=== PATIENT | male | born 2000 | race African-American/Black ===

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

== ENCOUNTER 2018-02-24 00:52 | Emergency (ER) | payer MEDICAID, OTHER ==
[2018-02-24] MEDS ORDERED: KETOROLAC TROMETHAMINE 60 MG/2 ML SDV IM ONE (01:48)
--- NOTE | 2018-02-24 03:14 | ER Document Report ---
ED General - General Chief Complaint: Headache Stated Complaint: HEADACHE Time Seen by Provider: 02/24/18 01:32 Notes: Patient is a 17-year-old male presenting to the emergency department complaining of generalized headache that started yesterday afternoon. Patient states it has gotten worse since then. States he did not take any home medications. Patient states the headache is behind bilateral eyes and through his forehead. Patient states he also thinks as though he has blurred vision bilaterally. Patient denies contact or glasses use. Patient also denies being to a doctor within the last 2 years. Patient denies URI symptoms, nausea, vomiting, fever, diarrhea, abdominal pain, shortness of breath, neck pain. Past medical history: None Medications: None Allergies: None Surgical history: None Patient does admit to cigarette smoking, denies illicit drug use, denies EtOH use. TRAVEL OUTSIDE OF THE [place] IN LAST 30 DAYS: No COUNTRY TRAVELED TO/FROM: [facility] - Related Data Allergies/Adverse Reactions: No Known Allergies Allergy (Verified 06/19/16 15:00) Past Medical History - General Information source: Patient - Social History Smoking Status: Current Every Day Smoker Chew tobacco use (# tins/day): No Frequency of alcohol use: None Drug Abuse: Bath salts Lives with: Family Family History: Hypertension, Other - Lupus Patient has suicidal ideation: No Patient has homicidal ideation: No Pulmonary Medical History: Reports: Hx Asthma Renal/ Medical History: Denies: Hx Peritoneal Dialysis Past Surgical History: Reports: Hx Abdominal Surgery - Immunizations Immunizations up to date: Yes Hx Diphtheria, Pertussis, Tetanus Vaccination: Yes Review of Systems - Review of Systems Constitutional: See HPI EENT: See HPI Cardiovascular: See HPI Respiratory: See HPI Gastrointestinal: See HPI Genitourinary: No symptoms reported Male Genitourinary: No symptoms reported Musculoskeletal: No symptoms reported Skin: No symptoms reported Hematologic/Lymphatic: No symptoms reported Neurological/Psychological: No symptoms reported Physical Exam - Vital signs Vitals: Temp Pulse Resp BP Pulse Ox 98.4 F 63 17 133/66 H 100 02/24/18 00:56 02/24/18 00:56 02/24/18 00:56 02/24/18 00:56 02/24/18 00:56 - Notes Notes: GENERAL: Alert, interacts well. No acute distress. HEAD: Normocephalic, atraumatic. EYES: Pupils equal, round, and reactive to light. Extraocular movements intact. No photophobia noted ENT: Oral mucosa moist, tongue midline. NECK: Full range of motion. Supple. Trachea midline. LUNGS: Clear to auscultation bilaterally, no wheezes, rales, or rhonchi. No respiratory distress. HEART: Regular rate and rhythm. No murmur ABDOMEN: Soft, non-tender. Non-distended. Bowel sounds present in all 4 quadrants. EXTREMITIES: Moves all 4 extremities spontaneously. No edema, normal radial and dorsalis pedis pulses bilaterally. No cyanosis. 5 out of 5 strength all 4 extremities. BACK: no cervical, thoracic, lumbar midline tenderness. No saddle anesthesia, normal distal neurovascular exam. NEUROLOGICAL: Alert and oriented x3. Normal speech. cranial nerves II through XII grossly intact. PSYCH: Normal affect, normal mood. SKIN: Warm, dry, normal turgor. No rashes or lesions noted. - HEENT Visual acuity- Right eye: 20/50 Visual acuity- Left eye: 20/50 Visual acuity- Both eyes: 20/30 Corrective lenses worn: No Course - Re-evaluation Re-evalutation: 02/24/18 03:12 Patient states Toradol in the emergency room has improved his headache overall. Patient is sitting on the edge of the bed requesting to be discharged and would like a note for work. Discussed home treatments with Tylenol and Motrin for pain and discomfort. Discussed need to follow-up with primary care provider and potentially an investigator narcotics to be tested for potential glasses. Return precautions discussed. - Vital Signs Vital signs: Temp Pulse Resp BP Pulse Ox 98.4 F 63 17 133/66 H 100 02/24/18 00:56 02/24/18 00:56 02/24/18 00:56 02/24/18 00:56 02/24/18 00:56 Discharge - Discharge Clinical Impression: Headache Qualifiers: Headache type: unspecified Headache chronicity pattern: acute headache Intractability: not intractable Qualified Code(s): R51 - Headache Condition: Stable Disposition: HOME, SELF-CARE Instructions: Toradol Injection ([facility]), Headache ([facility]) Additional Instructions: As we discussed you have been seen and treated in the emergency department for headache. You should take [id number] Tylenol or Motrin for your headaches. You should also follow-up with your primary care provider in the next 24-48 hours. Please return to the emergency room for any other concerning symptoms. Referrals: EDILMA HAYS MD [Primary Care Provider] - Follow up as needed
[2018-02-24 03:30] VITALS: BP 138/62
== END 2018-02-24 03:55 | disposition home or self-care (01) ==
LOC: ER 00:52
DX: R51 Headache (principal); F17.210 Nicotine dependence, cigarettes, uncomplicated; J45.909 Unspecified asthma, uncomplicated
CPT/HCPCS: 99284; 96372; J1885

== ENCOUNTER 2018-07-11 18:59 | Emergency (ER) | payer SELFPAY ==
[2018-07-11 19:35] VITALS: BP 125/52
== END 2018-07-11 22:50 | disposition left against medical advice (07) ==
LOC: ER 18:59
DX: Z53.21 Procedure and treatment not carried out due to patient leaving prior to being seen by health care provider (principal)

== ENCOUNTER 2018-07-13 05:52 | Emergency (ER) | payer SELFPAY ==
[2018-07-13] MEDS ORDERED: DIPHENHYDRAMINE HCL 50 MG CAPSULE PO ONE (06:37)
[2018-07-13] MEDS ORDERED: NORMAL SALINE 1000 ML 1,000 ML IV ONE ×3 (06:38→10:13)
[2018-07-13] MEDS ORDERED: DIPHENHYDRAMINE HCL 50 MG/ML VIAL IV ONE (06:41)
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
[2018-07-13 07:16] LABS: ALANINE AMINOTRANSFERASE 12 U/L (21-72); ALBUMIN 4.7 g/dL (3.5-5.0); ALKALINE PHOSPHATASE 141 U/L (38-126); ASPARTATE AMINO TRANSFERASE 28 U/L (17-59); BILIRUBIN,DIRECT 0.6 mg/dL (0.0-0.4); BILIRUBIN,TOTAL 1.1 mg/dL (0.2-1.3); BLOOD UREA NITROGEN 31 mg/dL (7-20); CALCIUM 9.6 mg/dL (8.4-10.2); CHLORIDE 96 mmol/L (98-107); POTASSIUM 5.3 mmol/L (3.6-5.0); SODIUM 126.6 mmol/L (137-145); TOTAL PROTEIN 8.2 g/dL (6.3-8.2)
--- NOTE | 2018-07-13 07:23 | RADIOLOGY REPORT (SQ) ---
EXAM DESCRIPTION: X-ray single view chest. CLINICAL HISTORY: 18 years Male, sob COMPARISON: 05/27/2015 TECHNIQUE: Single portable x-ray view of the chest performed on 07/13/2018 at 7:05 AM FINDINGS: The lungs are well expanded and are grossly clear. There is no evidence of a pneumothorax. The cardiac silhouette is normal in size and configuration. The mediastinal contours are normal. No acute osseous abnormality is identified. There is subcutaneous emphysema along the neck bilaterally and superolateral right chest wall and there is pneumomediastinum. Lines and tubes: There are a few overlying front desk monitor leads. IMPRESSION: 1. Subcutaneous emphysema and pneumomediastinum predominantly centrally and to the right of midline. Etiology not determined by this study. 2. No evidence of acute intrathoracic disease.
[2018-07-13 07:25] LABS: CARBON DIOXIDE < 5 mmol/L (22-30); GLUCOSE 542 mg/dL (75-110)
[2018-07-13 07:31] LABS: VENOUS BLOOD BASE EXCESS -28.2 mmol/L; VENOUS BLOOD PCO2 21.5 mmHg (35-63)
[2018-07-13 07:34] LABS: VENOUS BLOOD PH 6.89 (7.30-7.42)
[2018-07-13] MEDS ORDERED: INSULIN REG, HUMAN 100 UNIT/ML 3 ML VIAL (PYX) IV ONE (07:34)
[2018-07-13 07:39] LABS: HEMATOCRIT 45.5 % (37.9-51.0); HEMOGLOBIN 14.1 g/dL (13.5-17.0); MEAN CORPUSCULAR HEMOGLOBIN 22.7 pg (27.0-33.4); MEAN CORPUSCULAR HGB CONC 31.1 g/dL (32.0-36.0); MEAN CORPUSCULAR VOLUME 73 fl (80-97); PLATELET COUNT 373 10^3/uL (150-450); RED BLOOD COUNT 6.23 10^6/uL (4.35-5.55); RED CELL DISTRIBUTION WIDTH 13.9 % (11.5-14.0); WHITE BLOOD COUNT 24.8 10^3/uL (4.0-10.5)
[2018-07-13] MEDS ORDERED: ONDANSETRON HCL INJ/PF 4 MG/2 ML SDV IV ONE (07:55)
[2018-07-13] MEDS ORDERED: MORPHINE SULFATE 10 MG/ML INJ IV ONE ×2 (07:55→13:56)
[2018-07-13 07:57] LABS: ABSOLUTE LYMPHOCYTES# (MANUAL) 1.2 10^3/uL (0.5-4.7); ABSOLUTE MONOCYTES # (MANUAL) 1.2 10^3/uL (0.1-1.4); ABSOLUTE NEUTROPHILS# (MANUAL) 22.1 10^3/uL (1.7-8.2); BASOPHILS % (MANUAL) 1 % (0-2); EOSINOPHILS % (MANUAL) 0 % (0-6); LYMPHOCYTES % (MANUAL) 5 % (13-45); MONOCYTES % (MANUAL) 5 % (3-13); SEGMENTED NEUTROPHILS % (MAN) 89 % (42-78); TOTAL CELLS COUNTED 100
[2018-07-13 07:58] LABS: PLATELET COMMENT ADEQUATE
--- NOTE | 2018-07-13 09:22 | RADIOLOGY REPORT (SQ) ---
EXAM DESCRIPTION: CT CHEST WITHOUT COMPLETED DATE/TIME: 07/13/2018 9:02 am REASON FOR STUDY: Pneumomediastinum COMPARISON: None. TECHNIQUE: CT scan performed of the chest without intravenous contrast. Images reviewed with lung, soft tissue and bone windows. Reconstructed coronal and sagittal MPR images reviewed. All images st ored on PACS. All CT scanners at this facility use dose modulation, iterative reconstruction, and/or weight based d osing when appropriate to reduce radiation dose to as low as reasonably achievable (ALARA). [facility]: Dose Right [facility]: CareDose [facility]: Dose Right [facility]: Teradose 4D [facility]: Smart Technologies RADIATION DOSE: CT Rad equipment meets quality standard of care and radiation dose reduction techniq ues were employed. CTDIvol: 6.5 mGy. DLP: 256 mGy-cm. mGy. LIMITATIONS: No technical limitations. FINDINGS: LUNGS AND PLEURA: No masses, infiltrates, or pneumothorax. No pleural effusions or pleura l calcifications. HILAR AND MEDIASTINAL STRUCTURES: Extensive mediastinal air extending into the supraclavicular region s bilaterally greatest on the right. HEART AND VASCULAR STRUCTURES: No aneurysm. No pericardial effusion. UPPER ABDOMEN: The liver, spleen, adrenals demonstrate no abnormality. The stomach is distended with fluid. A moderate amount of fluid noted within the esophagus and stomach. THYROID AND OTHER SOFT TISSUES: No masses. No adenopathy. BONES: No significant finding. HARDWARE: None in the chest. OTHER: Subcutaneous emphysema in right axillary region and lump paraspinal muscles posterior to right cervical region. IMPRESSION: 1. Pneumomediastinum. Subcutaneous soft tissues emphysema right axillary region and shi praclavicular regions, right greater than left. 2. Moderate amount of fluid noted within the stomac h and fluid noted in the esophagus. TECHNICAL DOCUMENTATION: JOB ID: [id number] Quality ID # [id number]: Final reports with documentation of one or more dose reduction techniques (e.g., Au tomated exposure control, adjustment of the mA and/or kV according to patient size, use of iterative reconstruction technique) 2010 [employer]- All Rights Reserved Reading location - IP/workstation name: [email or web address]
[2018-07-13 09:38] LABS: APPEARANCE,URINE SLIGHTLY-CLOUDY; BILIRUBIN,URINE NEGATIVE (NEGATIVE); COLOR,URINE YELLOW; GLUCOSE, URINE >=500 mg/dL (NEGATIVE); KETONES,URINE 80 mg/dL (NEGATIVE); LEUKOCYTE ESTERASE,URINE NEGATIVE (NEGATIVE); NITRITE,URINE NEGATIVE (NEGATIVE); PROTEIN,URINE 30 mg/dL (NEGATIVE); URINE SPECIFIC GRAVITY 1.021; UROBILINOGEN,URINE NEGATIVE mg/dL (<2.0)
[2018-07-13 09:49] LABS: URINE AMPHETAMINES SCREEN NEGATIVE; URINE BARBITURATES SCREEN NEGATIVE; URINE BENZODIAZEPINES SCREEN NEGATIVE; URINE COCAINE SCREEN NEGATIVE; URINE MARIJUANA (THC) SCREEN NEGATIVE; URINE METHADONE SCREEN NEGATIVE; URINE PHENCYCLIDINE SCREEN NEGATIVE
--- NOTE | 2018-07-13 10:09 | ER Document Report ---
ED General - General Chief Complaint: Shortness Of Breath Stated Complaint: CHEST PAIN AND DIFFICULTY BREATHING Time Seen by Provider: 07/13/18 06:20 Primary Care Provider: EDILMA HAYS MD [Primary Care Provider] - Follow up as needed Mode of Arrival: Ambulatory TRAVEL OUTSIDE OF THE [place] IN LAST 30 DAYS: No COUNTRY TRAVELED TO/FROM: [facility] - HPI Notes: Patient presents to the emergency department for evaluation. He is a 18-year- old male who presented with difficulty breathing. Evidently he had presented to the ED a few days ago, left without being seen. He states he had shortness of breath for about a week. His girlfriend relates that he thought that his tongue was swollen. He has been drinking excessively over the last week. He has had multiple episodes of emesis. He has been complaining intermittently of abd ominal pain throughout the week. Last night, after vomiting, he began eating of chest pain as well. He really cannot describe his pain for me other than to say it hurts significantly. - Related Data Allergies/Adverse Reactions: No Known Allergies Allergy (Verified 07/11/18 19:02) Past Medical History - General Information source: Patient, Friend - Social History Smoking Status: Never Smoker Cigarette use (# per day): No Chew tobacco use (# tins/day): No Frequency of alcohol use: Rare Drug Abuse: None Lives with: Family Family History: DM, Hypertension, Other - Lupus Patient has suicidal ideation: No Patient has homicidal ideation: No Pulmonary Medical History: Reports: Hx Asthma Renal/ Medical History: Denies: Hx Peritoneal Dialysis Past Surgical History: Reports: Hx Abdominal Surgery - Immunizations Immunizations up to date: Yes Hx Diphtheria, Pertussis, Tetanus Vaccination: Yes Review of Systems - Review of Systems Constitutional: Malaise, Weakness EENT: No symptoms reported Cardiovascular: See HPI Respiratory: See HPI Gastrointestinal: See HPI Genitourinary: See HPI Musculoskeletal: No symptoms reported Skin: No symptoms reported Neurological/Psychological: No symptoms reported Physical Exam - Vital signs Vitals: Temp Pulse Resp BP Pulse Ox 97 F L 99 32 H 140/64 H 100 07/13/18 06:00 07/13/18 06:00 07/13/18 06:00 07/13/18 06:00 07/13/18 06:00 - Notes Notes: Vital signs reviewed, please refer to chart. Patient is normocephalic, atraumatic. Pupils equal round, reactive to light. Neck is supple without meningismus. Heart is tachycardic with normal S1-S2. Lungs are clear to aus cultation bilaterally, but respiratory rate is increased with cook boat rafi respirations. Tender to palpation throughout the chest wall, right greater than left, with some palpable subcutaneous emphysema into the right axilla. Abdomen is soft, globally tender without rebound or guarding, normoactive bowel sounds throughout. Extremities without cyanosis, clubbing, edema. Peripheral pulses are equal. Skin is warm and dry. Patient is drowsy but wakes easily to verbal stimuli. Cranial nerves II through XII are grossly intact without focal neurological deficits. Strength is plus 5 out of 5 bilateral upper and lower extremities. Sensation is intact. Intact finger nose finger, rapid alternating movements, [id number]. Course - Re-evaluation Re-evalutation: 07/13/18 10:51 And he was initially seen by the physician chef assistant. Because of medical complexity, the presence of pneumomediastinum, I was brought in to manage this case. In short this patient presented with nausea, vomiting, polyuria, polydipsia. He was found to have new onset diabetes with DKA, as well as pneumomediastinum. CT scan of the chest was ordered which found no obvious physeal source, no clear source for the pneumomediastinum. Patient was treated with IV fluids, insulin. He was given pain medication. Insulin drip was maintained, repeat basic metabolic panel ordered and pending. I spoke with Dr. Mills at 1015. He agrees that this patient, while medically could be handled here, is more concerning secondary to the pneumomediastinum. We do not have CT surgery. We do not even have a school superintendent at this time. I spoke with Dr.Li Webb, hospitalist at [facility], who accepted the patient in transfer to the PCU. Awaiting bed assignment. - Vital Signs Vital signs: Temp Pulse Resp BP Pulse Ox 97 F L 99 39 H 155/89 H 100 07/13/18 06:00 07/13/18 06:00 07/13/18 08:16 07/13/18 08:16 07/13/18 08:16 - Laboratory Result Diagrams: 07/13/18 07:15 07/13/18 06:30 Laboratory results interpreted by me: 07/13/18 07/13/18 07/13/18 06:30 07:02 07:13 WBC RBC MCV MCH MCHC Seg Neuts % (Manual) Lymphocytes % (Manual) Abs Neuts (Manual) VBG pH VBG pCO2 VBG HCO3 Sodium 126.6 L Potassium 5.3 H Chloride 96 L Carbon Dioxide < 5 L* BUN 31 H Creatinine 1.58 H Est GFR (Non-Af Amer) 56 L Glucose 542 H* POC Glucose 477 H* 472 H* Direct Bilirubin 0.6 H ALT 12 L Alkaline Phosphatase 141 H Urine Protein Urine Glucose (UA) Urine Ketones Urine Blood 07/13/18 07/13/18 07/13/18 07:15 07:15 09:10 WBC 24.8 H RBC 6.23 H MCV 73 L MCH 22.7 L MCHC 31.1 L Seg Neuts % (Manual) 89 H Lymphocytes % (Manual) 5 L Abs Neuts (Manual) 22.1 H VBG pH 6.89 L* VBG pCO2 21.5 L VBG HCO3 4.0 L Sodium Potassium Chloride Carbon Dioxide BUN Creatinine Est GFR (Non-Af Amer) Glucose POC Glucose Direct Bilirubin ALT Alkaline Phosphatase Urine Protein 30 H Urine Glucose (UA) >=500 H Urine Ketones 80 H Urine Blood MODERATE H 07/13/18 07/13/18 09:13 10:08 WBC RBC MCV MCH MCHC Seg Neuts % (Manual) Lymphocytes % (Manual) Abs Neuts (Manual) VBG pH VBG pCO2 VBG HCO3 Sodium Potassium Chloride Carbon Dioxide BUN Creatinine Est GFR (Non-Af Amer) Glucose POC Glucose 372 H 366 H Direct Bilirubin ALT Alkaline Phosphatase Urine Protein Urine Glucose (UA) Urine Ketones Urine Blood - Diagnostic Test Radiology reviewed: Reports reviewed - Pneumomediastinum Critical Care Note - Critical Care Note Total time excluding time spent on procedures (mins): 40 Discharge - Discharge Clinical Impression: Pneumomediastinum Diabetic ketoacidosis Qualifiers: Diabetes mellitus type: type 1 Condition: Stable Disposition: [facility] Admitting Provider: Jon Referrals: EDILMA HAYS MD [Primary Care Provider] - Follow up as needed
[2018-07-13 13:07] LABS: BLOOD UREA NITROGEN 27 mg/dL (7-20); CALCIUM 8.9 mg/dL (8.4-10.2); GLUCOSE 259 mg/dL (75-110)
[2018-07-13 13:13] LABS: CHLORIDE 103 mmol/L (98-107); SODIUM 130.9 mmol/L (137-145)
[2018-07-13 13:14] LABS: ANION GAP 20 (5-19)
[2018-07-13 13:16] LABS: CARBON DIOXIDE 8 mmol/L (22-30)
[2018-07-13] MEDS ORDERED: POTASSI CL 40 MEQ/D5-1/2NS 1L 40 MEQ/1,000 ML RTUINJ IV ONE (13:51)
[2018-07-13] MEDS ORDERED: POTASSI CL 20 MEQ/D5-1/2NS 1L 1,000 ML IV ONE (14:15)
[2018-07-13 17:09] VITALS: BP 134/70
== END 2018-07-13 16:30 | disposition short-term general hospital (02) ==
LOC: ER 05:52
DX: J98.2 Interstitial emphysema (principal); E10.10 Type 1 diabetes mellitus with ketoacidosis without coma; R11.2 Nausea with vomiting, unspecified; R35.8 Other polyuria; J45.909 Unspecified asthma, uncomplicated; R06.02 Shortness of breath; R10.9 Unspecified abdominal pain; R07.9 Chest pain, unspecified; R53.81 Other malaise; R53.1 Weakness; R00.0 Tachycardia, unspecified
CPT/HCPCS: 96376; 99291; 96361; 96375; 96365; 96366; 36415; 82962; 83735; 85025; 80048; 80053; 81001; 80307; 82803; 71045; 71250; J1200; J2270; J3480; J1815; J2405; J7030

== ENCOUNTER 2018-08-17 15:11 | Emergency (ER) | payer SELFPAY ==
[2018-08-17] MEDS ORDERED: NORMAL SALINE 1000 ML 1,000 ML IV ONE (16:09)
[2018-08-17 16:34] LABS: VENOUS BLOOD BASE EXCESS 0.2 mmol/L; VENOUS BLOOD HCO3 27.1 mmol/L (20-32); VENOUS BLOOD PCO2 53.7 mmHg (35-63); VENOUS BLOOD PH 7.32 (7.30-7.42)
[2018-08-17 16:35] LABS: ABSOLUTE BASOPHILS # (AUTO) 0.1 10^3/uL (0.0-0.2); ABSOLUTE EOSINOPHILS # (AUTO) 0.2 10^3/uL (0.0-0.6); ABSOLUTE LYMPHOCYTES (AUTO) 0.8 10^3/uL (0.5-4.7); ABSOLUTE MONOCYTES (AUTO) 0.7 10^3/uL (0.1-1.4); ABSOLUTE NEUT (AUTO) 5.8 10^3/uL (1.7-8.2); BASOPHILS % (AUTO) 0.9 % (0-2); EOSINOPHILS % (AUTO) 2.2 % (0-6); HEMATOCRIT 38.8 % (37.9-51.0); HEMOGLOBIN 12.1 g/dL (13.5-17.0); LYMPHOCYTES % (AUTO) 10.2 % (13-45); MEAN CORPUSCULAR HEMOGLOBIN 23.4 pg (27.0-33.4); MEAN CORPUSCULAR HGB CONC 31.1 g/dL (32.0-36.0); MEAN CORPUSCULAR VOLUME 75 fl (80-97); MONOCYTES % (AUTO) 9.8 % (3-13); PLATELET COUNT 230 10^3/uL (150-450); RED BLOOD COUNT 5.17 10^6/uL (4.35-5.55); RED CELL DISTRIBUTION WIDTH 15.7 % (11.5-14.0); SEGMENTED NEUTROPHILS % (AUTO) 76.9 % (42-78); TOTAL CELLS COUNTED % (AUTO) 100 %; WHITE BLOOD COUNT 7.6 10^3/uL (4.0-10.5)
[2018-08-17 16:37] LABS: APPEARANCE,URINE CLEAR; BILIRUBIN,URINE NEGATIVE (NEGATIVE); COLOR,URINE COLORLESS; GLUCOSE, URINE >=500 mg/dL (NEGATIVE); KETONES,URINE NEGATIVE (NEGATIVE); LEUKOCYTE ESTERASE,URINE NEGATIVE (NEGATIVE); NITRITE,URINE NEGATIVE (NEGATIVE); PROTEIN,URINE NEGATIVE (NEGATIVE); URINE SPECIFIC GRAVITY 1.029; UROBILINOGEN,URINE NEGATIVE mg/dL (<2.0)
[2018-08-17 16:58] LABS: ALANINE AMINOTRANSFERASE 34 U/L (21-72); ALBUMIN 4.3 g/dL (3.5-5.0); ALKALINE PHOSPHATASE 107 U/L (38-126); ANION GAP 14 (5-19); ASPARTATE AMINO TRANSFERASE 35 U/L (17-59); BILIRUBIN,DIRECT 0.3 mg/dL (0.0-0.4); BILIRUBIN,TOTAL 0.8 mg/dL (0.2-1.3); BLOOD UREA NITROGEN 5 mg/dL (7-20); CALCIUM 9.4 mg/dL (8.4-10.2); CARBON DIOXIDE 26 mmol/L (22-30); CHLORIDE 90 mmol/L (98-107); POTASSIUM 4.2 mmol/L (3.6-5.0); SODIUM 130.3 mmol/L (137-145); TOTAL PROTEIN 6.9 g/dL (6.3-8.2)
[2018-08-17 17:07] LABS: GLUCOSE 645 mg/dL (75-110)
[2018-08-17] MEDS ORDERED: INSULIN REG, HUMAN 100 UNIT/ML 3 ML VIAL (PYX) IV ONE (17:28)
--- NOTE | 2018-08-17 20:23 | ER Document Report ---
ED General - General Chief Complaint: High Blood Sugar Stated Complaint: BLOOD SUGAR ISSUES Time Seen by Provider: 08/17/18 16:20 TRAVEL OUTSIDE OF THE [place] IN LAST 30 DAYS: No COUNTRY TRAVELED TO/FROM: [facility] Notes: Patient is a 18-year-old male with a known history of type 1 diabetes, recently diagnosed, who presents to the emergency department for evaluation of elevated blood sugars. He states that he has been taking his insulin as prescribed. He states he has been trying to follow dietary recommendations, although he admits he is unclear as to some of them. He was primarily concerned because his blood sugars been reading high over the last week, that he could possibly be in DKA. He denies any pain. No nausea or vomiting. He does have polyuria and polydi psia. He has not yet established care with a primary care physician. He still has insulin as prescribed by the physicians [facility]. - Related Data Allergies/Adverse Reactions: No Known Allergies Allergy (Verified 08/17/18 16:33) Past Medical History - General Information source: Patient - Social History Smoking Status: Current Every Day Smoker Chew tobacco use (# tins/day): No Frequency of alcohol use: None Drug Abuse: None Family History: Reviewed & Not Pertinent, Hypertension, Other - Lupus Patient has suicidal ideation: No Patient has homicidal ideation: No Pulmonary Medical History: Reports: Hx Asthma Endocrine Medical History: Reports: Hx Diabetes Mellitus Type 1 Renal/ Medical History: Denies: Hx Peritoneal Dialysis Past Surgical History: Reports: Hx Abdominal Surgery - Immunizations Immunizations up to date: Yes Hx Diphtheria, Pertussis, Tetanus Vaccination: Yes Review of Systems - Review of Systems Constitutional: No symptoms reported EENT: No symptoms reported Cardiovascular: No symptoms reported Respiratory: No symptoms reported Gastrointestinal: No symptoms reported Genitourinary: No symptoms reported Musculoskeletal: No symptoms reported Skin: No symptoms reported Neurological/Psychological: No symptoms reported Physical Exam - Vital signs Vitals: Temp Pulse Resp BP Pulse Ox 98.8 F 97 16 128/53 H 96 08/17/18 15:36 08/17/18 15:36 08/17/18 15:36 08/17/18 15:36 08/17/18 15:36 - Notes Notes: Vital signs reviewed, please refer to chart. Head is normocephalic, atraumatic. Pupils equal round, reactive to light. Neck is supple without meningismus. Heart is regular rate and rhythm. Lungs are clear to auscultation bilaterally. Abdomen is soft, nontender, normoactive bowel sounds throughout. Extremities without cyanosis, clubbing. Posterior calves are nontender. Peripheral pulses are equal. Skin is warm and dry. Patient is awake, alert, oriented x3. Cranial nerves II - XII are grossly intact without focal neurological deficits. Strength is plus 5 out of 5 bilateral lower extremities. Sensation is intact. Reflexes symmetrical. Intact [id number], rapid altering movements, [id number]. Course - Re-evaluation Re-evalutation: 08/17/18 20:20 Patient presents emergency department for evaluation. Laboratory investigations were ordered, IV was established, the patient was given IV fluids. He was m onitored here in the emergency department. Patient's glucose was initially 645. He is not in DKA. His bicarb is normal. He is not acidotic. He was given further IV fluids and 15 units of IV insulin. His blood sugar came down temporarily, but then alirio again above 500. The patient states he is not eating or drinking anything other than water in the room at this time. I do not have a clear etiology for his blood sugar continuing to rise. I explained to the patient that I believe it would be reasonable for him to be admitted to the hospital. He states that he does not want to stay. We discussed the long-term sequelae of uncontrolled blood sugar. We discussed the possibility of jamar nuing on into DKA given his elevated blood sugar. He voiced understanding to this. He states he was still like to leave AGAINST MEDICAL ADVICE. The importance of establishing care with a primary care physician in light of his new onset type 1 diabetes was stressed. We will send him on to the [facility]. He is told that if any time he changes his mind regarding admission, he should come into the emergency department to be reevaluated. - Vital Signs Vital signs: Temp Pulse Resp BP Pulse Ox 98.8 F 97 14 128/53 H 97 08/17/18 15:36 08/17/18 15:36 08/17/18 16:26 08/17/18 15:36 08/17/18 16:26 - Laboratory Result Diagrams: 08/17/18 16:25 08/17/18 16:25 Laboratory results interpreted by me: 08/17/18 08/17/18 08/17/18 16:25 16:25 16:25 Hgb 12.1 L MCV 75 L MCH 23.4 L MCHC 31.1 L RDW 15.7 H Lymphocytes % 10.2 L Sodium 130.3 L Chloride 90 L BUN 5 L Glucose 645 H* POC Glucose Urine Glucose (UA) >=500 H 08/17/18 18:44 Hgb MCV MCH MCHC RDW Lymphocytes % Sodium Chloride BUN Glucose POC Glucose 487 H* Urine Glucose (UA) Discharge - Discharge Clinical Impression: Hyperglycemia due to type 1 diabetes mellitus Condition: Stable Disposition: AGAINST MEDICAL ADVICE Instructions: Hyperglycemia ([facility]) Additional Instructions: You have elected to leave AGAINST MEDICAL ADVICE. Stay well-hydrated. Continue your insulin dosing as prescribed from Gerald Weinstein. Follow-up with primary care. If you change your mind regarding staying in the hospital, or you develop new or concerning symptoms of any sort, return immediately to the emergency department for reevaluation. Referrals: [facility] [NO LOCAL MD] - Follow up as needed
[2018-08-17 20:34] VITALS: BP 134/52
== END 2018-08-17 20:41 | disposition left against medical advice (07) ==
LOC: ER 15:11
DX: E10.65 Type 1 diabetes mellitus with hyperglycemia (principal); R63.1 Polydipsia; R35.8 Other polyuria; F17.200 Nicotine dependence, unspecified, uncomplicated; Z79.4 Long term (current) use of insulin
CPT/HCPCS: 99283; 96360; 36415; 82962; 85025; 80053; 81001; 82803; J1815; J7030

== ENCOUNTER 2018-09-17 23:28 | Inpatient (IN) | payer SELFPAY ==
[2018-09-17] MEDS ORDERED: CEFTRIAXONE INJ 1000 MG VIAL IV ONE (23:59)
[2018-09-17] MEDS ORDERED: VANCOMYCIN HCL INJ 1000 MG VIAL IV ONE (23:59)
--- NOTE | 2018-09-18 00:02 | ER Document Report ---
ED General - General Chief Complaint: High Blood Sugar Stated Complaint: BLOOD SUGAR ISSUE Time Seen by Provider: 09/17/18 23:53 Notes: Patient is a 18-year-old male presents with complaint of what appears to be DKA. He has been taking his insulin. He says he has been sick the last few days. He has an area of infection in his left cubital region. Initially patient says he does not do IV drugs however he had multiple track ojhnson and when asked him again he does admit to using IV heroin. He does not think it broken off in his arm. He said he did have an abscess in his left elbow but it since opened up and started draining on its own. He started having intractable vomiting. No diarrhea. No abdominal pain. No other complaints at this time. He does not have a primary care physician. He has been in DKA in the past. TRAVEL OUTSIDE OF THE [place] IN LAST 30 DAYS: No COUNTRY TRAVELED TO/FROM: [facility] - Related Data Allergies/Adverse Reactions: No Known Allergies Allergy (Verified 09/17/18 23:29) Past Medical History - Social History Smoking Status: Unknown if Ever Smoked Frequency of alcohol use: Occasional Drug Abuse: Heroin Family History: Reviewed & Not Pertinent, Hypertension, Other - Lupus Pulmonary Medical History: Reports: Hx Asthma Endocrine Medical History: Reports: Hx Diabetes Mellitus Type 1 Renal/ Medical History: Denies: Hx Peritoneal Dialysis Past Surgical History: Reports: Hx Abdominal Surgery - Immunizations Immunizations up to date: Yes Hx Diphtheria, Pertussis, Tetanus Vaccination: Yes Review of Systems - Review of Systems Notes: My Normal Review Basic REVIEW OF SYSTEMS: CONSTITUTIONAL : Subjective fever at home. EENT: Denies eye, ear, throat, or mouth pain or symptoms. Denies nasal or sinus congestion. CARDIOVASCULAR: Denies chest pain. RESPIRATORY: Denies cough, cold, or chest congestion. Denies shortness of breath, difficulty breathing, or wheezing. GASTROINTESTINAL: Denies abdominal pain. Denies nausea, vomiting, or diarrhea. MUSCULOSKELETAL: Infection in the left antecubital region SKIN: Denies rash or skin lesions. NEUROLOGICAL: Denies altered mental status or loss of consciousness. Denies headache. Denies weakness or paralysis or loss of use of either side. Denies problems with gait or speech. Denies sensory or motor loss. ALL OTHER SYSTEMS REVIEWED AND NEGATIVE. Physical Exam - Vital signs Vitals: Temp Pulse Resp BP Pulse Ox 97.6 F 101 H 27 H 164/49 H 100 09/17/18 23:40 09/17/18 23:40 09/17/18 23:40 09/17/18 23:40 09/17/18 23:40 - Notes Notes: General Appearance: Thin and cachectic, awake and alert, [place] respirations, sick appearing Vitals: reviewed, See vital signs table. Head: no swelling or tenderness to the head Eyes: PERRL, EOMI, Conjuctiva clear Mouth: Very dry Throat: No tonsillar inflammation, No airway obstruction, No lymphadenopathy Neck: Supple, no neck tenderness, No thyromegaly Lungs: No wheezing, No rales, No rhonci, No accessory muscle use, good air exchange bilaterally. Heart: Tachycardiac rate, Regular rythm, No murmur, no rub Abdomen: Normal BS, soft, No rigidity, No abdominal tenderness, No guarding, no rebound, no abdominal masses Extremities: strength 5/5 in all extremities, arm, dry, appropriate color, good pulses in all extremities, small hole from her abscess has opened and drained on its own in the left lateral antecubital region. I was able to squeeze this area to express the remainder of the pus. We did culture the pus. Patient has multiple track johnson over both forearms and arms. Neuro: speech clear, oriented x 3, normal affect, responds appropriately to questions. Course - Re-evaluation Re-evalutation: 09/18/18 00:00 On exam patient clinically looks consistent with DKA. Does patient coordinator front desk small respirations and is tachycardic and is very dry appearing. We just placed an IV and will be started IV fluids immediately. On exam he is got multiple track johnson on both upper extremities consistent with IV drug abuse. Initially patient denied IV drug abuse however I question again informed him the importance of us knowing this and now he admits to using heroin. He does have an area of recent infection in his left antecubital region from what looks like she had an abscess which has since drained but there is still some residual in fection there. I have ordered IV fluids. Avoid labs. Have ordered an x-ray of the left elbow to make sure there is no evidence of retained needle or foreign body. 09/18/18 00:02 09/18/18 07:17 Patient was treated for DKA. I did place a central line because patient's only had 2 peripheral IVs and I felt that with his antibiotics, need for fluids, and insulin drip he required more vascular access. I did speak with the hospitalist, Dr. Lopes, agreed to come evaluate the patient for admission. Blood cultures were obtained. Culture of drainage from abscess was obtained. Patient was starting to improve prior to being admitted. Heart rate had improved. Nausea improved. [place] respirations were improving. - Vital Signs Vital signs: Temp Pulse Resp BP Pulse Ox 97.5 F 82 17 120/63 100 09/18/18 06:00 09/18/18 03:42 09/18/18 06:00 09/18/18 05:41 09/18/18 06:00 - Laboratory Result Diagrams: 09/18/18 04:57 09/18/18 04:57 Laboratory results interpreted by me: 09/17/18 09/18/18 09/18/18 23:55 00:00 00:15 WBC 11.3 H RBC 5.62 H Hgb 13.0 L MCV 76 L MCH 23.0 L MCHC 30.2 L RDW 16.3 H Plt Count 463 H Seg Neutrophils % 84.4 H Lymphocytes % 11.3 L Absolute Neutrophils 9.5 H VBG pH 6.96 L* VBG pCO2 15.9 L* VBG HCO3 3.5 L Sodium Potassium Carbon Dioxide Glucose POC Glucose 343 H AST Alkaline Phosphatase Urine Protein Urine Glucose (UA) Urine Ketones Urine Blood 09/18/18 09/18/18 09/18/18 00:15 01:02 01:23 WBC RBC Hgb MCV MCH MCHC RDW Plt Count Seg Neutrophils % Lymphocytes % Absolute Neutrophils VBG pH VBG pCO2 VBG HCO3 Sodium 132.8 L 133.1 L Potassium 5.2 H 5.1 H Carbon Dioxide < 5 L* < 5 L* Glucose 355 H 337 H POC Glucose AST 14 L Alkaline Phosphatase 130 H Urine Protein 30 H Urine Glucose (UA) >=500 H Urine Ketones 80 H Urine Blood SMALL H Procedures - Central Line Left Internal jugular Consent obtained: Yes Central line pre-insertion: Chloraprep applied Central line lumen type: Triple Anesthetic type: 1% Lidocaine mL's of anesthesia: 2 Ultrasound guided: Yes CM at insertion site: 17 Line secured with sutures: Yes Central line post-insertion: Blood return from lumens, Biopatch applied, Sutured, Sterile dressing applied, Position confirmed w/ CXR Number of attempts: 1 Complications: No Critical Care Note - Critical Care Note Total time excluding time spent on procedures (mins): 55 Comments: Critical care time for this patient including time spent on procedures proximally 55 minutes due to frequent re-evaluations, management DKA, management of dehydration, management of insulin drip. Discharge - Discharge Clinical Impression: Abscess of left arm Diabetic ketoacidosis Qualifiers: Diabetes mellitus type: type 1 Diabetes mellitus complication detail: without coma Qualified Code(s): E10.10 - Type 1 diabetes mellitus with ketoacidosis without coma Condition: Stable Disposition: ADMITTED INPATIENT Admitting Provider: Moses (Hospitalist) Unit Admitted: ICU
[2018-09-18 00:10] LABS: VENOUS BLOOD HCO3 3.5 mmol/L (20-32)
[2018-09-18] MEDS: RINGERS SOLUTION,LACTATED 1,000 ML IV PRN ×2 (00:13→00:35)
[2018-09-18 00:15] LABS: VENOUS BLOOD PCO2 15.9 mmHg (35-63); VENOUS BLOOD PH 6.96 (7.30-7.42)
[2018-09-18 00:34] LABS: ABSOLUTE BASOPHILS # (AUTO) 0.1 10^3/uL (0.0-0.2); ABSOLUTE LYMPHOCYTES (AUTO) 1.3 10^3/uL (0.5-4.7); ABSOLUTE MONOCYTES (AUTO) 0.4 10^3/uL (0.1-1.4); ABSOLUTE NEUT (AUTO) 9.5 10^3/uL (1.7-8.2); BASOPHILS % (AUTO) 0.9 % (0-2); HEMATOCRIT 42.9 % (37.9-51.0); LYMPHOCYTES % (AUTO) 11.3 % (13-45); MEAN CORPUSCULAR HGB CONC 30.2 g/dL (32.0-36.0); MEAN CORPUSCULAR VOLUME 76 fl (80-97); MONOCYTES % (AUTO) 3.4 % (3-13); PLATELET COUNT 463 10^3/uL (150-450); RED BLOOD COUNT 5.62 10^6/uL (4.35-5.55); RED CELL DISTRIBUTION WIDTH 16.3 % (11.5-14.0); SEGMENTED NEUTROPHILS % (AUTO) 84.4 % (42-78); TOTAL CELLS COUNTED % (AUTO) 100 %; WHITE BLOOD COUNT 11.3 10^3/uL (4.0-10.5)
--- NOTE | 2018-09-18 00:44 | RADIOLOGY REPORT (SQ) ---
EXAM DESCRIPTION: XR ELBOW 1-2 VIEWS COMPLETED DATE/TME: 09/18/2018 00:02 CLINICAL HISTORY: 18 years, Male, rule out metallic foreign body COMPARISON: None. NUMBER OF VIEWS: 2 TECHNIQUE: 2 view left elbow LIMITATIONS: None FINDINGS: Negative for fracture or dislocation. No radiopaque foreign body IMPRESSION: Negative exam copyright 2010 [employer]- All Rights Reserved
[2018-09-18 00:45] LABS: ALANINE AMINOTRANSFERASE 29 U/L (21-72); ALKALINE PHOSPHATASE 130 U/L (38-126); ASPARTATE AMINO TRANSFERASE 14 U/L (17-59); BILIRUBIN,DIRECT 0.4 mg/dL (0.0-0.4); BILIRUBIN,TOTAL 0.7 mg/dL (0.2-1.3); BLOOD UREA NITROGEN 16 mg/dL (7-20); CALCIUM 9.2 mg/dL (8.4-10.2); CHLORIDE 103 mmol/L (98-107); GLUCOSE 355 mg/dL (75-110); POTASSIUM 5.2 mmol/L (3.6-5.0); SODIUM 132.8 mmol/L (137-145); TOTAL PROTEIN 7.3 g/dL (6.3-8.2)
[2018-09-18 01:05] LABS: CARBON DIOXIDE < 5 mmol/L (22-30)
[2018-09-18] MEDS ORDERED: NORMAL SALINE 100 ML with INSULIN REGULAR, HUMAN 100 UNIT IV PRN ×4 (01:12→01:35)
[2018-09-18] MEDS ORDERED: RINGERS SOLUTION,LACTATED 1,000 ML IV ONE (01:13)
[2018-09-18] MEDS ORDERED: IPRATROPIUM/ALBUTEROL 0.5-2.5 MG/3 ML AMPUL NEB PRN (01:35)
[2018-09-18] MEDS ORDERED: DEXTROSE 40% GEL 15 GM TUBE PO PRN ×2 (01:35)
[2018-09-18] MEDS ORDERED: GLUCAGON,HUMAN RECOMB 1 MG INJ IM PRN (01:35)
[2018-09-18] MEDS ORDERED: MAG HYDROX/AL HYDROX/SIMETH SUSP 30 ML UDCUP PO PRN (01:35)
[2018-09-18] MEDS ORDERED: DEXTROSE 50%-WATER 25 GM/50 ML DISP.SYRIN IV PRN ×2 (01:35)
[2018-09-18] MEDS ORDERED: ACETAMINOPHEN 325 MG TABLET PO PRN (01:35)
[2018-09-18] MEDS ORDERED: INSULIN REG, HUMAN 100 UNIT/ML 3 ML VIAL (PYX) ONE (01:41)
[2018-09-18 01:55] LABS: BLOOD UREA NITROGEN 15 mg/dL (7-20); CALCIUM 8.6 mg/dL (8.4-10.2); CHLORIDE 103 mmol/L (98-107); GLUCOSE 337 mg/dL (75-110); POTASSIUM 5.1 mmol/L (3.6-5.0); SODIUM 133.1 mmol/L (137-145)
[2018-09-18 02:01] LABS: URINE AMPHETAMINES SCREEN NEGATIVE; URINE BARBITURATES SCREEN NEGATIVE; URINE BENZODIAZEPINES SCREEN NEGATIVE; URINE COCAINE SCREEN NEGATIVE; URINE MARIJUANA (THC) SCREEN NEGATIVE; URINE METHADONE SCREEN NEGATIVE; URINE PHENCYCLIDINE SCREEN NEGATIVE
[2018-09-18 02:13] LABS: CARBON DIOXIDE < 5 mmol/L (22-30)
[2018-09-18] MEDS ORDERED: VANCOMYCIN HCL 0 MG in DEXTROSE 5%-WATER 250 ML IV NR (02:45)
[2018-09-18] MEDS: NORMAL SALINE 1000 ML 1,000 ML IV PRN ×2 (02:52→04:12)
--- NOTE | 2018-09-18 02:54 | RADIOLOGY REPORT (SQ) ---
EXAM DESCRIPTION: XR CHEST 1 VIEW COMPLETED DATE/TME: 09/18/2018 00:00 CLINICAL HISTORY: 18 years, Male, central line placement COMPARISON: 07/13/2018 chest NUMBER OF VIEWS: 1 TECHNIQUE: Portable chest LIMITATIONS: None. FINDINGS: The heart size is normal. Central venous catheter with the tip in the SVC. No pneumothorax. Underlying hyperinflation. Lungs are clear. IMPRESSION: Central venous catheter tip in the SVC. Underlying hyperinflation copyright 2010 [employer]- All Rights Reserved
[2018-09-18 03:02] LABS: APPEARANCE,URINE CLEAR; BILIRUBIN,URINE NEGATIVE (NEGATIVE); COLOR,URINE STRAW; GLUCOSE, URINE >=500 mg/dL (NEGATIVE); KETONES,URINE 80 mg/dL (NEGATIVE); LEUKOCYTE ESTERASE,URINE NEGATIVE (NEGATIVE); NITRITE,URINE NEGATIVE (NEGATIVE); PROTEIN,URINE 30 mg/dL (NEGATIVE); URINE SPECIFIC GRAVITY 1.018; UROBILINOGEN,URINE NEGATIVE mg/dL (<2.0)
[2018-09-18] MEDS: CEFEPIME 1 GM/D5W RTU 1 GM/50 ML RTUPB IV SCH ×2 (04:13→17:31)
[2018-09-18] MEDS: HEPARIN SOD (PORCINE) 5,000 UNIT/ML 1 ML SYRINGE SUBCUT SCH ×3 (05:00→22:05)
[2018-09-18 05:09] LABS: ABSOLUTE BASOPHILS # (AUTO) 0.1 10^3/uL (0.0-0.2); ABSOLUTE LYMPHOCYTES (AUTO) 0.9 10^3/uL (0.5-4.7); ABSOLUTE MONOCYTES (AUTO) 0.5 10^3/uL (0.1-1.4); ABSOLUTE NEUT (AUTO) 9.3 10^3/uL (1.7-8.2); BASOPHILS % (AUTO) 0.6 % (0-2); HEMATOCRIT 39.3 % (37.9-51.0); HEMOGLOBIN 12.2 g/dL (13.5-17.0); LYMPHOCYTES % (AUTO) 8.7 % (13-45); MEAN CORPUSCULAR HEMOGLOBIN 23.4 pg (27.0-33.4); MEAN CORPUSCULAR HGB CONC 31.1 g/dL (32.0-36.0); MEAN CORPUSCULAR VOLUME 75 fl (80-97); MONOCYTES % (AUTO) 4.5 % (3-13); PLATELET COUNT 358 10^3/uL (150-450); RED BLOOD COUNT 5.21 10^6/uL (4.35-5.55); RED CELL DISTRIBUTION WIDTH 15.8 % (11.5-14.0); SEGMENTED NEUTROPHILS % (AUTO) 86.2 % (42-78); TOTAL CELLS COUNTED % (AUTO) 100 %; WHITE BLOOD COUNT 10.8 10^3/uL (4.0-10.5)
--- NOTE | 2018-09-18 05:30 | PDOC H&P ---
History of Present Illness Admission Date/PCP: 09/18/18 02:40 Patient complains of: Hyperglycemia History of Present Illness: FAITH RAVI is a 18 year old male with a past medical history of asthma, insulin dependent diabetes and newly admitted IV heroin abuse. He presents with hyperglycemia lethargy and pain to his left antecubital fossa. He is found to have severe dehydration, tachycardia tachypnea metabolic acidosis with a pH of 6.9. And a small abscess to the left antecubital fossa. Abscess is drained by ER provider. He is started on IV fluids IV insulin and referred to the hospitalist for admission. Patient admits to inconsistent use of insulin and admits to regular use of IV heroin. Past Medical History Medical History: None Cardiac Medical History: Reports: None Pulmonary Medical History: Reports: Asthma EENT Medical History: Reports: None Neurological Medical History: Reports: None Endocrine Medical History: Reports: Diabetes Mellitus Type 1 Malignancy Medical History: Reports: None GI Medical History: Reports: None Musculoskeltal Medical History: Reports: None Skin Medical History: Reports: None Psychiatric Medical History: Reports: Substance Abuse, Tobacco Dependency Traumatic Medical History: Reports: None Hematology: Reports: None Infectious Medical History: Reports: None Past Surgical History Past Surgical History: Reports: None Social History Information Source: Patient, Emergency Med Personnel, COUNTS INCLUDE 234 BEDS AT THE [facility] Records Lives with: Family Smoking Status: Current Every Day Smoker Hx Recreational Drug Use: Yes Drugs: Heroin - Advance Directive Resuscitation Status: Full Code Family History Family History: Hypertension, Other - Lupus Parental Family History Reviewed: Yes Children Family History Reviewed: Yes Sibling(s) Family History Reviewed.: Yes Medication/Allergy Home Medications: Insulin Aspart [Novolog Flexpen] 12 units SUBCUT BID 08/17/18 Allergies/Adverse Reactions: No Known Allergies Allergy (Verified 09/17/18 23:29) Review of Systems ROS unobtainable: Due to mental status Physical Exam Vital Signs: Temp Pulse Resp BP Pulse Ox 96.3 F L 82 29 H 124/68 100 09/18/18 03:42 09/18/18 03:42 09/18/18 03:42 09/18/18 03:42 09/18/18 03:42 Intake & Output 09/16/18 09/17/18 09/18/18 11:59 11:59 11:59 Intake Total 2974 Output Total 1700 Balance 1274 Weight 51.7 kg General appearance: PRESENT: disheveled, severe distress, thin, other - Chronically ill-appearing severe cachexia with temporal wasting Head exam: PRESENT: atraumatic, normocephalic Eye exam: PRESENT: conjunctiva pink, EOMI, PERRLA. ABSENT: scleral icterus Ear exam: PRESENT: normal external ear exam Mouth exam: PRESENT: dry mucosa. ABSENT: laceration, moist Neck exam: ABSENT: carotid bruit, JVD, lymphadenopathy, thyromegaly Respiratory exam: PRESENT: accessory muscle use, retraction, symmetrical, tachypnea. ABSENT: crackles, rhonchi Cardiovascular exam: PRESENT: gallop, +S1, +S2, systolic murmur, tachycardia Pulses: PRESENT: normal dorsalis pedis pul Vascular exam: PRESENT: normal capillary refill GI/Abdominal exam: PRESENT: normal bowel sounds, soft. ABSENT: distended, guarding, mass, organolmegaly, rebound, tenderness Rectal exam: PRESENT: deferred Extremities exam: PRESENT: full ROM, tenderness - Bilateral arm track johnson, left antecubital fossa with 0.5 x 0.5 cm ulcer with purulent material. ABSENT: calf tenderness, clubbing, pedal edema Neurological exam: PRESENT: alert, altered, awake, oriented to person, oriented to place, oriented to time, oriented to situation, CN II-XII grossly intact. ABSENT: motor sensory deficit Psychiatric exam: PRESENT: flat affect - Bilateral arm track johnson, left antecubital fossa with 0.5 x 0.5 cm ulcer with purulent material Skin exam: PRESENT: other. ABSENT: erythema, intact - Bilateral arm track johnson, left antecubital fossa with 0.5 x 0.5 cm ulcer with purulent material Results Laboratory Results: 09/18/18 09/18/18 09/18/18 00:00 00:15 00:15 WBC 11.3 H RBC 5.62 H Hgb 13.0 L Hct 42.9 MCV 76 L MCH 23.0 L MCHC 30.2 L RDW 16.3 H Plt Count 463 H Seg Neutrophils % 84.4 H Lymphocytes % 11.3 L Monocytes % 3.4 Eosinophils % 0.0 Basophils % 0.9 Absolute Neutrophils 9.5 H Absolute Lymphocytes 1.3 Absolute Monocytes 0.4 Absolute Eosinophils 0.0 Absolute Basophils 0.1 VBG pH 6.96 L* VBG pCO2 15.9 L* VBG HCO3 3.5 L VBG Base Excess -27.0 Sodium 132.8 L Potassium 5.2 H Chloride 103 Carbon Dioxide < 5 L* Anion Gap Not Reportable BUN 16 Creatinine 0.90 Est GFR ( Amer) > 60 Est GFR (Non-Af Amer) > 60 Glucose 355 H Calcium 9.2 Magnesium Total Bilirubin 0.7 AST 14 L ALT 29 Alkaline Phosphatase 130 H Total Protein 7.3 Albumin 4.0 Urine Color Urine Appearance Urine pH Ur Specific [place] Urine Protein Urine Glucose (UA) Urine Ketones Urine Blood Urine Nitrite Ur Leukocyte Esterase Urine WBC (Auto) Urine RBC (Auto) 09/18/18 09/18/18 09/18/18 01:02 01:02 01:23 WBC RBC Hgb Hct MCV MCH MCHC RDW Plt Count Seg Neutrophils % Lymphocytes % Monocytes % Eosinophils % Basophils % Absolute Neutrophils Absolute Lymphocytes Absolute Monocytes Absolute Eosinophils Absolute Basophils VBG pH VBG pCO2 VBG HCO3 VBG Base Excess Sodium 133.1 L Potassium 5.1 H Chloride 103 Carbon Dioxide < 5 L* Anion Gap Not Reportable BUN 15 Creatinine 0.86 Est GFR ( Amer) > 60 Est GFR (Non-Af Amer) > 60 Glucose 337 H Calcium 8.6 Magnesium 1.9 Total Bilirubin AST ALT Alkaline Phosphatase Total Protein Albumin Urine Color STRAW Urine Appearance CLEAR Urine pH 5.0 Ur Specific [place] 1.018 Urine Protein 30 H Urine Glucose (UA) >=500 H Urine Ketones 80 H Urine Blood SMALL H Urine Nitrite NEGATIVE Ur Leukocyte Esterase NEGATIVE Urine WBC (Auto) 0 Urine RBC (Auto) 0 Impressions: Chest X-Ray 09/18/18 00:00 IMPRESSION: Central venous catheter tip in the SVC. Underlying hyperinflation copyright 2010 [employer]- All Rights Reserved Elbow X-Ray 09/18/18 00:02 IMPRESSION: Negative exam copyright 2010 [employer]- All Rights Reserved Assessment and Plan - Diagnosis (1) Abscess of left arm Is this a current diagnosis for this admission?: Yes Plan: Likely secondary to IV drug abuse, vancomycin and cefepime initiated, follow-up ultrasound, CBC blood and urine culture (2) Infective endocarditis Is this a current diagnosis for this admission?: Yes Plan: Systolic murmur with high risk of infective endocarditis, follow-up 2D echo continue vancomycin follow blood cultures (3) Sepsis Is this a current diagnosis for this admission?: Yes Plan: Secondary to #1 and 2, IV fluid challenge, follow-up blood and wound cultures. (4) Diabetic ketoacidosis Qualifiers: Diabetes mellitus type: type 1 Diabetes mellitus complication detail: without coma Qualified Code(s): E10.10 - Type 1 diabetes mellitus with ketoacidosis without coma Is this a current diagnosis for this admission?: Yes Plan: Severe diabetic ketoacidosis patient has had some degree of polyuria polydipsia with nausea and uncontrolled hyperglycemia with supporting labs. Patient will receive IV fluids IV insulin serial chemistries every 6 hours for evaluation for electrolyte repletion. Continued evaluation for underlying cause if not found Patient will require diabetic education and consideration of mental health evaluation. (5) Heroin abuse Is this a current diagnosis for this admission?: Yes Plan: Anticipate withdrawal. Mental health consult when status improves. - Time Time Spent with patient: 35 or more minutes - Inpatient Certification Medical Necessity: Need Close Monitoring Due to Risk of Patient Decompensation
[2018-09-18 05:32] LABS: BLOOD UREA NITROGEN 15 mg/dL (7-20); CALCIUM 8.2 mg/dL (8.4-10.2); CHLORIDE 109 mmol/L (98-107); GLUCOSE 216 mg/dL (75-110)
[2018-09-18 05:45] LABS: SODIUM 134.5 mmol/L (137-145)
[2018-09-18 05:54] LABS: POTASSIUM 4.1 mmol/L (3.6-5.0)
[2018-09-18 05:57] LABS: CARBON DIOXIDE < 5 mmol/L (22-30)
[2018-09-18] MEDS ORDERED: POTASSI CL 20 MEQ/D5-1/2NS 1L 1,000 ML IV ONE (06:05)
[2018-09-18] MEDS ORDERED: POTASSI CL 20 MEQ/D5-1/2NS 1L 1000 ML IV PRN (06:19)
[2018-09-18] MEDS ORDERED: NORMAL SALINE INJ/PF 0.9% 10 ML SDV IV PRN (07:59)
[2018-09-18] MEDS ORDERED: ONDANSETRON HCL INJ/PF 4 MG/2 ML SDV IV PRN (08:27)
[2018-09-18] MEDS ORDERED: ONDANSETRON HCL INJ/PF 4 MG/2 ML SDV ONE (08:28)
[2018-09-18 08:42] LABS: ARTERIAL BLOOD BASE EXCESS -16.1 mmol/L; ARTERIAL BLOOD H2CO3 0.53 mmol/L (1.05-1.35); ARTERIAL BLOOD HCO3 8.2 mmol/L (20-24); ARTERIAL BLOOD PH 7.28 (7.35-7.45); ARTERIAL BLOOD PO2 119.3 mmHg (80-100); ARTERIAL BLOOD TOTAL CO2 8.7 mmol/L (23-27)
[2018-09-18 08:43] LABS: ARTERIAL BLOOD FIO2 ROOM AIR
[2018-09-18 08:45] LABS: ARTERIAL BLOOD PCO2 17.7 mmHg (35-45)
[2018-09-18] MEDS: DOCUSATE SODIUM 100 MG CAPSULE PO SCH ×2 (09:21→17:31)
[2018-09-18] MEDS: VANCOMYCIN HCL 1,250 MG in DEXTROSE 5%-WATER 250 ML IV SCH ×2 (09:31→22:04)
[2018-09-18 10:05] LABS: ANION GAP 13 (5-19); BLOOD UREA NITROGEN 13 mg/dL (7-20); CALCIUM 8.7 mg/dL (8.4-10.2); CARBON DIOXIDE 11 mmol/L (22-30); CHLORIDE 109 mmol/L (98-107); GLUCOSE 174 mg/dL (75-110)
[2018-09-18] MEDS ORDERED: DEXTROSE 5%-WATER 1000 ML 1,000 ML with SODIUM BICARBONATE 100 MEQ IV PRN ×2 (10:57)
[2018-09-18] MEDS ORDERED: POTASSI CL 20 MEQ/D5-1/2NS 1L 1,000 ML IV PRN (11:01)
[2018-09-18 13:57] LABS: ANION GAP 9 (5-19); BLOOD UREA NITROGEN 12 mg/dL (7-20); CALCIUM 8.4 mg/dL (8.4-10.2); CARBON DIOXIDE 15 mmol/L (22-30); CHLORIDE 107 mmol/L (98-107); GLUCOSE 175 mg/dL (75-110); POTASSIUM 3.8 mmol/L (3.6-5.0); SODIUM 131.2 mmol/L (137-145)
--- NOTE | 2018-09-18 15:48 | RADIOLOGY REPORT (SQ) ---
EXAM DESCRIPTION: U/S EXTREMITY NONVASCULAR LTD COMPLETED DATE/TIME: 09/18/2018 3:32 pm REASON FOR STUDY: Eval for left forearm abcess COMPARISON: None. TECHNIQUE: Dynamic and static grayscale images acquired of the localized site of clinical concern an d recorded on PACS. Additional selected color Doppler and spectral images recorded. SITE OF CONCERN: left antecubital fossa LIMITATIONS: None. FINDINGS: 3.4 x 2.8 x 1.4 cm heterogeneous hypoechoic region in the left antecubital fossa with some increased vascularity suggesting indurated tissue. Small amount of subcutaneous free fluid and a fe w foci area of echogenic areas suggesting gas, this is consistent with the reported history that the patient had an abscess drained in the emergency room earlier. OTHER: No other significant finding. IMPRESSION: 3.4 x 2.8 x 1.4 cm heterogeneous hypoechoic region in the left antecubital fossa with so me increased vascularity suggesting indurated tissue. Small amount of subcutaneous free fluid and a f ew foci area of echogenic areas suggesting gas, this is consistent with the reported history that the patient had an abscess drained in the emergency room earlier. TECHNICAL DOCUMENTATION: JOB ID: [id number] [place]-72 2010 [employer]- All Rights Reserved Reading location - IP/workstation name: [email or web address]
[2018-09-18] MEDS: POTASSI CL 20 MEQ/NS 1L 1,000 ML IV PRN (17:31)
[2018-09-18] MEDS ORDERED: ALTEPLASE INJ 2 MG VIAL (CATH CLEARANCE) IV ONE (18:00)
[2018-09-18 18:32] LABS: ANION GAP 10 (5-19); BLOOD UREA NITROGEN 11 mg/dL (7-20); CALCIUM 8.8 mg/dL (8.4-10.2); CARBON DIOXIDE 17 mmol/L (22-30); CHLORIDE 105 mmol/L (98-107); GLUCOSE 213 mg/dL (75-110); POTASSIUM 3.7 mmol/L (3.6-5.0); SODIUM 131.9 mmol/L (137-145)
[2018-09-18 21:10] LABS: ANION GAP 11 (5-19); BLOOD UREA NITROGEN 11 mg/dL (7-20); CALCIUM 8.8 mg/dL (8.4-10.2); CARBON DIOXIDE 18 mmol/L (22-30); CHLORIDE 104 mmol/L (98-107); GLUCOSE 157 mg/dL (75-110); POTASSIUM 3.5 mmol/L (3.6-5.0); SODIUM 132.8 mmol/L (137-145)
[2018-09-18] MEDS: INSULIN GLARGINE,HUM.REC.ANLOG 1,000 UNIT/10 ML VIAL SUBCUT SCH (21:59)
[2018-09-18] MEDS: INSULIN LISPRO 100 UNIT/ML 3 ML VIAL SUBCUT SCH (22:01)
[2018-09-18 23:24] LABS: ANION GAP 10 (5-19); BLOOD UREA NITROGEN 12 mg/dL (7-20); CARBON DIOXIDE 19 mmol/L (22-30); CHLORIDE 104 mmol/L (98-107); GLUCOSE 156 mg/dL (75-110); POTASSIUM 3.3 mmol/L (3.6-5.0); SODIUM 132.8 mmol/L (137-145)
[2018-09-19] MEDS: POTASSI CL 20 MEQ/NS 1L 1,000 ML IV PRN (03:00)
[2018-09-19 03:01] LABS: ANION GAP 8 (5-19); BLOOD UREA NITROGEN 11 mg/dL (7-20); CALCIUM 8.8 mg/dL (8.4-10.2); CARBON DIOXIDE 22 mmol/L (22-30); CHLORIDE 104 mmol/L (98-107); GLUCOSE 104 mg/dL (75-110); POTASSIUM 3.3 mmol/L (3.6-5.0); SODIUM 133.5 mmol/L (137-145)
[2018-09-19] MEDS: HEPARIN SOD (PORCINE) 5,000 UNIT/ML 1 ML SYRINGE SUBCUT SCH ×3 (05:01→21:13)
[2018-09-19] MEDS: CEFEPIME 1 GM/D5W RTU 1 GM/50 ML RTUPB IV SCH (05:01)
[2018-09-19 06:37] LABS: HEPATITIS A AB IGM Negative (Negative); HEPATITIS B CORE AB IGM Negative (Negative); HEPATITS B SURFACE ANTIGEN Negative (Negative)
[2018-09-19 07:14] LABS: ABSOLUTE LYMPHOCYTES (AUTO) 0.7 10^3/uL (0.5-4.7); ABSOLUTE MONOCYTES (AUTO) 0.7 10^3/uL (0.1-1.4); ABSOLUTE NEUT (AUTO) 6.2 10^3/uL (1.7-8.2); BASOPHILS % (AUTO) 0.5 % (0-2); EOSINOPHILS % (AUTO) 0.1 % (0-6); HEMATOCRIT 34.9 % (37.9-51.0); HEMOGLOBIN 11.6 g/dL (13.5-17.0); MEAN CORPUSCULAR HEMOGLOBIN 23.7 pg (27.0-33.4); MEAN CORPUSCULAR HGB CONC 33.2 g/dL (32.0-36.0); MEAN CORPUSCULAR VOLUME 72 fl (80-97); MONOCYTES % (AUTO) 9.3 % (3-13); PLATELET COUNT 254 10^3/uL (150-450); RED BLOOD COUNT 4.88 10^6/uL (4.35-5.55); RED CELL DISTRIBUTION WIDTH 15.4 % (11.5-14.0); SEGMENTED NEUTROPHILS % (AUTO) 81.1 % (42-78); TOTAL CELLS COUNTED % (AUTO) 100 %; WHITE BLOOD COUNT 7.7 10^3/uL (4.0-10.5)
[2018-09-19 07:24] LABS: ANION GAP 6 (5-19); BLOOD UREA NITROGEN 10 mg/dL (7-20); CALCIUM 8.5 mg/dL (8.4-10.2); CARBON DIOXIDE 19 mmol/L (22-30); CHLORIDE 104 mmol/L (98-107); GLUCOSE 174 mg/dL (75-110); POTASSIUM 3.4 mmol/L (3.6-5.0); SODIUM 128.7 mmol/L (137-145)
[2018-09-19 07:38] LABS: HEPATITIS C VIRUS ANTIBODY <0.1 s/co ratio (0.0-0.9)
[2018-09-19] MEDS ORDERED: NORMAL SALINE 1000 ML 1,000 ML IV PRN (07:56)
[2018-09-19] MEDS: INSULIN LISPRO 100 UNIT/ML 3 ML VIAL SUBCUT SCH ×4 (08:50→21:11)
[2018-09-19] MEDS: SODIUM BICARBONATE 650 MG TABLET PO SCH ×2 (08:51→12:23)
[2018-09-19 09:54] LABS: ARTERIAL BLOOD BASE EXCESS -3.3 mmol/L; ARTERIAL BLOOD H2CO3 0.83 mmol/L (1.05-1.35); ARTERIAL BLOOD HCO3 19.3 mmol/L (20-24); ARTERIAL BLOOD O2 SATURATION 98.6 % (94-98); ARTERIAL BLOOD PCO2 27.7 mmHg (35-45); ARTERIAL BLOOD PH 7.46 (7.35-7.45); ARTERIAL BLOOD PO2 121.7 mmHg (80-100); ARTERIAL BLOOD TOTAL CO2 20.2 mmol/L (23-27)
[2018-09-19 09:56] LABS: ARTERIAL BLOOD FIO2 21%
[2018-09-19] MEDS ORDERED: POTASSIUM CHLORIDE 10 MEQ CAPSULE.ER PO SCH (10:00)
--- NOTE | 2018-09-19 11:57 | PDOC PROGRESS REPORT ---
Subjective Progress Note for:: 09/18/18 Subjective:: Patient is minimally cooperative during the encounter. Did not respond to questions. Reason For Visit: DKA,SEPSIS,IVDU Physical Exam Vital Signs: Temp Pulse Resp BP Pulse Ox 99.8 F 96 18 131/69 H 100 09/18/18 08:00 09/18/18 10:00 09/18/18 10:00 09/18/18 10:00 09/18/18 10:00 Intake & Output 09/17/18 09/18/18 09/19/18 06:59 06:59 06:59 Intake Total 2991 50 Output Total 2300 300 Balance 691 -250 Weight 51.7 kg General appearance: PRESENT: mild distress, thin. ABSENT: cooperative Head exam: PRESENT: atraumatic, normocephalic Eye exam: PRESENT: other - Would not open eyes Ear exam: PRESENT: normal external ear exam Mouth exam: PRESENT: other - Did not open mouth Respiratory exam: PRESENT: clear to auscultation santhosh, symmetrical, unlabored. ABSENT: accessory muscle use, rales, rhonchi, tachypnea, wheezes Cardiovascular exam: PRESENT: RRR, +S1, +S2, systolic murmur - 2/6 Pulses: PRESENT: normal radial pulses, normal dorsalis pedis pul GI/Abdominal exam: PRESENT: soft. ABSENT: ascites, guarding, tenderness Rectal exam: PRESENT: deferred Extremities exam: PRESENT: other - Lesion left antecubital fossa. Small open area. Drainage on foam dressing.. ABSENT: joint swelling, pedal edema Musculoskeletal exam: PRESENT: normal inspection Neurological exam: PRESENT: awake, other - Difficult to assess as patient was minimally interactive.. ABSENT: alert Psychiatric exam: PRESENT: anxious, flat affect. ABSENT: agitated Focused psych exam: PRESENT: restlessness. ABSENT: delusional Skin exam: PRESENT: dry, normal color, warm, other - Small open wound left antecubital fossa. ABSENT: rash, vesicles Results Laboratory Results: 09/18/18 04:57 09/18/18 09:10 09/18/18 09/18/18 09/18/18 00:00 00:15 00:15 WBC 11.3 H RBC 5.62 H Hgb 13.0 L Hct 42.9 MCV 76 L MCH 23.0 L MCHC 30.2 L RDW 16.3 H Plt Count 463 H Seg Neutrophils % 84.4 H Lymphocytes % 11.3 L Monocytes % 3.4 Eosinophils % 0.0 Basophils % 0.9 Absolute Neutrophils 9.5 H Absolute Lymphocytes 1.3 Absolute Monocytes 0.4 Absolute Eosinophils 0.0 Absolute Basophils 0.1 Carbonic Acid HCO3/H2CO3 Ratio ABG pH ABG pCO2 ABG pO2 ABG HCO3 ABG O2 Saturation ABG Base Excess VBG pH 6.96 L* VBG pCO2 15.9 L* VBG HCO3 3.5 L VBG Base Excess -27.0 FiO2 Sodium 132.8 L Potassium 5.2 H Chloride 103 Carbon Dioxide < 5 L* Anion Gap Not Reportable BUN 16 Creatinine 0.90 Est GFR ( Amer) > 60 Est GFR (Non-Af Amer) > 60 Glucose 355 H Calcium 9.2 Magnesium Total Bilirubin 0.7 AST 14 L ALT 29 Alkaline Phosphatase 130 H Total Protein 7.3 Albumin 4.0 Urine Color Urine Appearance Urine pH Ur Specific [place] Urine Protein Urine Glucose (UA) Urine Ketones Urine Blood Urine Nitrite Ur Leukocyte Esterase Urine WBC (Auto) Urine RBC (Auto) 09/18/18 09/18/18 09/18/18 01:02 01:02 01:23 WBC RBC Hgb Hct MCV MCH MCHC RDW Plt Count Seg Neutrophils % Lymphocytes % Monocytes % Eosinophils % Basophils % Absolute Neutrophils Absolute Lymphocytes Absolute Monocytes Absolute Eosinophils Absolute Basophils Carbonic Acid HCO3/H2CO3 Ratio ABG pH ABG pCO2 ABG pO2 ABG HCO3 ABG O2 Saturation ABG Base Excess VBG pH VBG pCO2 VBG HCO3 VBG Base Excess FiO2 Sodium 133.1 L Potassium 5.1 H Chloride 103 Carbon Dioxide < 5 L* Anion Gap Not Reportable BUN 15 Creatinine 0.86 Est GFR ( Amer) > 60 Est GFR (Non-Af Amer) > 60 Glucose 337 H Calcium 8.6 Magnesium 1.9 Total Bilirubin AST ALT Alkaline Phosphatase Total Protein Albumin Urine Color STRAW Urine Appearance CLEAR Urine pH 5.0 Ur Specific [place] 1.018 Urine Protein 30 H Urine Glucose (UA) >=500 H Urine Ketones 80 H Urine Blood SMALL H Urine Nitrite NEGATIVE Ur Leukocyte Esterase NEGATIVE Urine WBC (Auto) 0 Urine RBC (Auto) 0 09/18/18 09/18/18 09/18/18 04:57 04:57 08:10 WBC 10.8 H RBC 5.21 Hgb 12.2 L Hct 39.3 MCV 75 L MCH 23.4 L MCHC 31.1 L RDW 15.8 H Plt Count 358 Seg Neutrophils % 86.2 H Lymphocytes % 8.7 L Monocytes % 4.5 Eosinophils % 0.0 Basophils % 0.6 Absolute Neutrophils 9.3 H Absolute Lymphocytes 0.9 Absolute Monocytes 0.5 Absolute Eosinophils 0.0 Absolute Basophils 0.1 Carbonic Acid 0.53 L HCO3/H2CO3 Ratio 15:1 ABG pH 7.28 L ABG pCO2 17.7 L* ABG pO2 119.3 H ABG HCO3 8.2 L ABG O2 Saturation 98.0 ABG Base Excess -16.1 VBG pH VBG pCO2 VBG HCO3 VBG Base Excess FiO2 ROOM AIR Sodium 134.5 L Potassium 4.1 D Chloride 109 H Carbon Dioxide < 5 L* Anion Gap Not Reportable BUN 15 Creatinine 0.62 Est GFR ( Amer) > 60 Est GFR (Non-Af Amer) > 60 Glucose 216 H Calcium 8.2 L Magnesium Total Bilirubin AST ALT Alkaline Phosphatase Total Protein Albumin Urine Color Urine Appearance Urine pH Ur Specific [place] Urine Protein Urine Glucose (UA) Urine Ketones Urine Blood Urine Nitrite Ur Leukocyte Esterase Urine WBC (Auto) Urine RBC (Auto) 09/18/18 09:10 WBC RBC Hgb Hct MCV MCH MCHC RDW Plt Count Seg Neutrophils % Lymphocytes % Monocytes % Eosinophils % Basophils % Absolute Neutrophils Absolute Lymphocytes Absolute Monocytes Absolute Eosinophils Absolute Basophils Carbonic Acid HCO3/H2CO3 Ratio ABG pH ABG pCO2 ABG pO2 ABG HCO3 ABG O2 Saturation ABG Base Excess VBG pH VBG pCO2 VBG HCO3 VBG Base Excess FiO2 Sodium 133.0 L Potassium 4.0 Chloride 109 H Carbon Dioxide 11 L Anion Gap 13 BUN 13 Creatinine 0.46 L Est GFR ( Amer) > 60 Est GFR (Non-Af Amer) > 60 Glucose 174 H Calcium 8.7 Magnesium Total Bilirubin AST ALT Alkaline Phosphatase Total Protein Albumin Urine Color Urine Appearance Urine pH Ur Specific [place] Urine Protein Urine Glucose (UA) Urine Ketones Urine Blood Urine Nitrite Ur Leukocyte Esterase Urine WBC (Auto) Urine RBC (Auto) Impressions: Chest X-Ray 09/18/18 00:00 IMPRESSION: Central venous catheter tip in the SVC. Underlying hyperinflation copyright 2010 [employer]- All Rights Reserved Elbow X-Ray 09/18/18 00:02 IMPRESSION: Negative exam copyright 2010 [employer]- All Rights Reserved Assessment and Plan - Diagnosis (1) Abscess of left arm Is this a current diagnosis for this admission?: Yes Plan: Likely secondary to IV drug abuse, vancomycin and cefepime initiated, follow-up ultrasound, CBC blood and urine culture 09/18/2018-the abscess was drained in the emergency department. Cultures are pending. Currently on cefepime and vancomycin. Continue until further culture results are available. (2) Infective endocarditis Qualifiers: Infective endocarditis organism: bacterial Chronicity: acute Qualified Code(s): I33.0 - Acute and subacute infective endocarditis Is this a current diagnosis for this admission?: Yes Plan: Systolic murmur with high risk of infective endocarditis, follow-up 2D echo continue vancomycin follow blood cultures 09/18/2018-the patient has an a cardiogram pending. With the abscess and IV drug use he is at high risk especially considering the murmur that he was previously unaware of. Await results to determine if in fact the endocarditis is present. (3) Sepsis Qualifiers: Sepsis type: sepsis due to unspecified organism Qualified Code(s): A41.9 - Sepsis, unspecified organism Is this a current diagnosis for this admission?: Yes Plan: Secondary to #1 and 2, IV fluid challenge, follow-up blood and wound cultures. 09/18/2018-the patient clearly has an abscess. There is question of endocarditis. He has responded to fluids. We will continue to monitor closely. His severe metabolic acidosis is slowly improving. (4) Diabetic ketoacidosis Qualifiers: Diabetes mellitus type: type 1 Diabetes mellitus complication detail: without coma Qualified Code(s): E10.10 - Type 1 diabetes mellitus with ketoacidosis without coma Is this a current diagnosis for this admission?: Yes Plan: Severe diabetic ketoacidosis patient has had some degree of polyuria polydipsia with nausea and uncontrolled hyperglycemia with supporting labs. Patient will receive IV fluids IV insulin serial chemistries every 6 hours for evaluation for electrolyte repletion. Continued evaluation for underlying cause if not found Patient will require diabetic education and consideration of mental health evaluation. 09/18/2018-the patient is noncompliant with his medications. He has markedly decreased bicarbonate levels. He is getting aggressive fluids as we are monitoring laboratory studies every 4 hours and fingerstick glucoses every 1 hour. He is currently on dextrose with bicarbonate and potassium. His anion gap is improving. He is requiring potassium supplementation as well. He has been able to slowly come down on his insulin drip. He is currently at 4 units/h this morning. I will adjust his fluids to continue to correct the bicarbonate which remains extremely low. (5) Heroin abuse Is this a current diagnosis for this admission?: Yes Plan: Anticipate withdrawal. Mental health consult when status improves. 09/18/2018- No evidence of withdrawal at this time. Will need to monitor closely. - Time Time Spent with patient: 35 or more minutes Medications reviewed and adjusted accordingly: Yes Anticipated discharge: Home
[2018-09-19 12:04] LABS: ANION GAP 7 (5-19); BLOOD UREA NITROGEN 9 mg/dL (7-20); CALCIUM 8.3 mg/dL (8.4-10.2); CARBON DIOXIDE 21 mmol/L (22-30); CHLORIDE 104 mmol/L (98-107); GLUCOSE 211 mg/dL (75-110); POTASSIUM 3.4 mmol/L (3.6-5.0); SODIUM 132.3 mmol/L (137-145)
[2018-09-19] MEDS: INSULIN GLARGINE,HUM.REC.ANLOG 1,000 UNIT/10 ML VIAL SUBCUT SCH ×2 (12:23→21:12)
[2018-09-19] MEDS: DOCUSATE SODIUM 100 MG CAPSULE PO SCH ×2 (12:23→18:00)
[2018-09-19 16:52] LABS: APPEARANCE,URINE CLEAR; BILIRUBIN,URINE NEGATIVE (NEGATIVE); COLOR,URINE YELLOW; GLUCOSE, URINE >=500 mg/dL (NEGATIVE); KETONES,URINE NEGATIVE (NEGATIVE); LEUKOCYTE ESTERASE,URINE NEGATIVE (NEGATIVE); NITRITE,URINE NEGATIVE (NEGATIVE); PROTEIN,URINE NEGATIVE (NEGATIVE); URINE SPECIFIC GRAVITY 1.027; UROBILINOGEN,URINE NEGATIVE mg/dL (<2.0)
[2018-09-19 17:13] LABS: ANION GAP 8 (5-19); BLOOD UREA NITROGEN 6 mg/dL (7-20); CALCIUM 8.8 mg/dL (8.4-10.2); CARBON DIOXIDE 22 mmol/L (22-30); CHLORIDE 103 mmol/L (98-107); GLUCOSE 138 mg/dL (75-110); POTASSIUM 3.3 mmol/L (3.6-5.0); SODIUM 132.8 mmol/L (137-145)
--- NOTE | 2018-09-19 17:34 | PDOC PROGRESS REPORT ---
Subjective Progress Note for:: 09/19/18 Reason For Visit: DKA,SEPSIS,IVDU Physical Exam Vital Signs: Temp Pulse Resp BP Pulse Ox 99.1 F 77 21 H 130/65 H 100 09/19/18 08:00 09/19/18 10:00 09/19/18 11:00 09/19/18 10:42 09/19/18 11:00 Intake & Output 09/18/18 09/19/18 09/20/18 06:59 06:59 06:59 Intake Total 2991 1402 Output Total 2300 1450 0 Balance 691 -48 0 Weight 51.7 kg 53.5 kg Results Laboratory Results: 09/19/18 06:53 09/18/18 09/18/18 09/18/18 13:30 17:00 19:58 WBC RBC Hgb Hct MCV MCH MCHC RDW Plt Count Seg Neutrophils % Lymphocytes % Monocytes % Eosinophils % Basophils % Absolute Neutrophils Absolute Lymphocytes Absolute Monocytes Absolute Eosinophils Absolute Basophils Carbonic Acid HCO3/H2CO3 Ratio ABG pH ABG pCO2 ABG pO2 ABG HCO3 ABG O2 Saturation ABG Base Excess FiO2 Sodium 131.2 L 131.9 L 132.8 L Potassium 3.8 3.7 3.5 L Chloride 107 105 104 Carbon Dioxide 15 L 17 L 18 L Anion Gap 9 10 11 BUN 12 11 11 Creatinine 0.38 L 0.39 L 0.36 L Est GFR ( Amer) > 60 > 60 > 60 Est GFR (Non-Af Amer) > 60 > 60 > 60 Glucose 175 H 213 H 157 H Calcium 8.4 8.8 8.8 09/18/18 09/19/18 09/19/18 22:41 02:32 06:53 WBC RBC Hgb Hct MCV MCH MCHC RDW Plt Count Seg Neutrophils % Lymphocytes % Monocytes % Eosinophils % Basophils % Absolute Neutrophils Absolute Lymphocytes Absolute Monocytes Absolute Eosinophils Absolute Basophils Carbonic Acid HCO3/H2CO3 Ratio ABG pH ABG pCO2 ABG pO2 ABG HCO3 ABG O2 Saturation ABG Base Excess FiO2 Sodium 132.8 L 133.5 L 128.7 L Potassium 3.3 L 3.3 L 3.4 L Chloride 104 104 104 Carbon Dioxide 19 L 22 19 L Anion Gap 10 8 6 BUN 12 11 10 Creatinine 0.37 L 0.34 L 0.36 L Est GFR ( Amer) > 60 > 60 > 60 Est GFR (Non-Af Amer) > 60 > 60 > 60 Glucose 156 H 104 174 H Calcium 9.0 8.8 8.5 09/19/18 09/19/18 06:53 09:32 WBC 7.7 RBC 4.88 Hgb 11.6 L Hct 34.9 L MCV 72 L MCH 23.7 L MCHC 33.2 RDW 15.4 H Plt Count 254 Seg Neutrophils % 81.1 H Lymphocytes % 9.0 L Monocytes % 9.3 Eosinophils % 0.1 Basophils % 0.5 Absolute Neutrophils 6.2 Absolute Lymphocytes 0.7 Absolute Monocytes 0.7 Absolute Eosinophils 0.0 Absolute Basophils 0.0 Carbonic Acid 0.83 L HCO3/H2CO3 Ratio 23:1 ABG pH 7.46 H ABG pCO2 27.7 L ABG pO2 121.7 H ABG HCO3 19.3 L ABG O2 Saturation 98.6 H ABG Base Excess -3.3 FiO2 21% Sodium Potassium Chloride Carbon Dioxide Anion Gap BUN Creatinine Est GFR ( Amer) Est GFR (Non-Af Amer) Glucose Calcium Impressions: Chest X-Ray 09/18/18 00:00 IMPRESSION: Central venous catheter tip in the SVC. Underlying hyperinflation copyright 2010 [employer]- All Rights Reserved Extremity Ultrasound 09/18/18 00:00 IMPRESSION: 3.4 x 2.8 x 1.4 cm heterogeneous hypoechoic region in the left antecubital fossa with some increased vascularity suggesting indurated tissue. Small amount of subcutaneous free fluid and a few foci area of echogenic areas suggesting gas, this is consistent with the reported history that the patient had an abscess drained in the emergency room earlier. Elbow X-Ray 09/18/18 00:02 IMPRESSION: Negative exam copyright 2010 [employer]- All Rights Reserved Assessment and Plan - Diagnosis (1) Abscess of left arm Is this a current diagnosis for this admission?: Yes Plan: Likely secondary to IV drug abuse, vancomycin and cefepime initiated, follow-up ultrasound, CBC blood and urine culture 09/18/2018-the abscess was drained in the emergency department. Cultures are pending. Currently on cefepime and vancomycin. Continue until further culture results are available. 09/19/2018-the culture grew beta-hemolytic strep group see. These tend to be universally sensitive to penicillins. I will change his antibiotics to oral amoxicillin. (2) Infective endocarditis Qualifiers: Infective endocarditis organism: bacterial Chronicity: acute Qualified Code(s): I33.0 - Acute and subacute infective endocarditis Is this a current diagnosis for this admission?: No Plan: Systolic murmur with high risk of infective endocarditis, follow-up 2D echo continue vancomycin follow blood cultures 09/18/2018-the patient has an a cardiogram pending. With the abscess and IV drug use he is at high risk especially considering the murmur that he was previously unaware of. Await results to determine if in fact the endocarditis is present. 09/19/2018-the echocardiogram report is not available however I was with the senior quality technician and the patient's valves appear to be free of vegetation. In addition, blood cultures are no growth after 48 hours and this makes endocarditis highly unlikely. (3) Sepsis Qualifiers: Sepsis type: sepsis due to unspecified organism Qualified Code(s): A41.9 - Sepsis, unspecified organism Is this a current diagnosis for this admission?: Yes Plan: Secondary to #1 and 2, IV fluid challenge, follow-up blood and wound cultures. 09/18/2018-the patient clearly has an abscess. There is question of en docarditis. He has responded to fluids. We will continue to monitor closely. His severe metabolic acidosis is slowly improving. 09/18/2018-with aggressive fluid resuscitation and treatment of the diabetic ketoacidosis, in addition to antibiotic therapy, the patient sepsis has resolved. (4) Diabetic ketoacidosis Qualifiers: Diabetes mellitus type: type 1 Diabetes mellitus complication detail: without coma Qualified Code(s): E10.10 - Type 1 diabetes mellitus with ketoacidosis without coma Is this a current diagnosis for this admission?: Yes Plan: Severe diabetic ketoacidosis patient has had some degree of polyuria polydipsia with nausea and uncontrolled hyperglycemia with supporting labs. Patient will receive IV fluids IV insulin serial chemistries every 6 hours for evaluation for electrolyte repletion. Continued evaluation for underlying cause if not found Patient will require diabetic education and consideration of mental health evaluation. 09/18/2018-the patient is noncompliant with his medications. He has markedly decreased bicarbonate levels. He is getting aggressive fluids as we are monitoring laboratory studies every 4 hours and fingerstick glucoses every 1 hour. He is currently on dextrose with bicarbonate and potassium. His anion gap is improving. He is requiring potassium supplementation as well. He has b een able to slowly come down on his insulin drip. He is currently at 4 units/h this morning. I will adjust his fluids to continue to correct the bicarbonate which remains extremely low. 09/19/2018-the ketoacidosis has resolved. The patient is on long-acting insulin with sliding scale coverage. In addition the acidosis has resolved. His serum bicarbonate is back to normal. (5) Heroin abuse Is this a current diagnosis for this admission?: Yes Plan: Anticipate withdrawal. Mental health consult when status improves. 09/18/2018- No evidence of withdrawal at this time. Will need to monitor closely. 09/19/2018-monitor for withdrawal. Provide information for rehab as an outpatient. (6) Hypokalemia Is this a current diagnosis for this admission?: Yes Plan: 09/19/2018-with a large quantities of insulin we have been chasing his serum potassium. It was 3.3 at the last check and so I will increase his potassium chloride to 20 mEq 3 times a day and check labs tomorrow. - Time Time Spent with patient: 25-34 minutes Medications reviewed and adjusted accordingly: Yes Anticipated discharge: Home Within: within 48 hours
[2018-09-19] MEDS: AMOXICILLIN TRIHYDRATE 500 MG CAPSULE PO SCH ×2 (18:00→21:10)
[2018-09-19] MEDS: POTASSIUM CHLORIDE 10 MEQ CAPSULE.ER PO SCH (18:00)
[2018-09-20] MEDS: AMOXICILLIN TRIHYDRATE 500 MG CAPSULE PO SCH (05:28)
[2018-09-20] MEDS: HEPARIN SOD (PORCINE) 5,000 UNIT/ML 1 ML SYRINGE SUBCUT SCH (05:36)
[2018-09-20 05:58] LABS: ABSOLUTE LYMPHOCYTES (AUTO) 1.3 10^3/uL (0.5-4.7); ABSOLUTE MONOCYTES (AUTO) 0.7 10^3/uL (0.1-1.4); ABSOLUTE NEUT (AUTO) 2.9 10^3/uL (1.7-8.2); BASOPHILS % (AUTO) 0.6 % (0-2); EOSINOPHILS % (AUTO) 0.4 % (0-6); HEMATOCRIT 31.8 % (37.9-51.0); HEMOGLOBIN 10.5 g/dL (13.5-17.0); LYMPHOCYTES % (AUTO) 25.4 % (13-45); MEAN CORPUSCULAR HEMOGLOBIN 23.7 pg (27.0-33.4); MEAN CORPUSCULAR HGB CONC 33.1 g/dL (32.0-36.0); MEAN CORPUSCULAR VOLUME 72 fl (80-97); MONOCYTES % (AUTO) 14.6 % (3-13); PLATELET COUNT 174 10^3/uL (150-450); RED BLOOD COUNT 4.44 10^6/uL (4.35-5.55); RED CELL DISTRIBUTION WIDTH 15.5 % (11.5-14.0); TOTAL CELLS COUNTED % (AUTO) 100 %
[2018-09-20 06:21] LABS: ANION GAP 10 (5-19); BLOOD UREA NITROGEN 5 mg/dL (7-20); CALCIUM 8.2 mg/dL (8.4-10.2); CARBON DIOXIDE 21 mmol/L (22-30); CHLORIDE 101 mmol/L (98-107); GLUCOSE 185 mg/dL (75-110); POTASSIUM 3.1 mmol/L (3.6-5.0); SODIUM 131.7 mmol/L (137-145)
--- NOTE | 2018-09-20 08:12 | PDOC DISCHARGE SUMMARY ---
General - Admit/Disc Date/PCP Admission Date/Primary Care Provider: 09/18/18 02:40 Discharge Date: 09/20/18 - Discharge Diagnosis (1) Abscess of left arm Is this a current diagnosis for this admission?: Yes Summary: Incision and drainage with submission of specimen to the microbiology lab revealed group C beta-hemolytic Streptococcus which is typically sensitive to penicillins. The patient will discharge on amoxicillin 500 mg 3 times a day for 1 week. Prescription was sent electronically to [facility] (2) Sepsis Is this a current diagnosis for this admission?: Yes Summary: From ketoacidosis and abscess. Treated with aggressive fluids and correction of DKA. Sepsis resolved. (3) Diabetic ketoacidosis Is this a current diagnosis for this admission?: Yes Summary: Reasonable control off of the insulin infusion with Lantus and Humalog. Without prescription coverage I have change the patient to Humulin 70/30. I have ordered 28 units in the morning and 22 units at night. This approximates the total dose of Lantus and sliding scale coverage. Prescription was sent electronically to [facility] (4) Heroin abuse Is this a current diagnosis for this admission?: Yes Summary: Encourage counseling and rehab (5) Hypokalemia Is this a current diagnosis for this admission?: Yes Summary: Likely due to the aggressive fluid resuscitation and insulin. I will discharge her on potassium chloride supplementation 10 mEq 3 times a day for 10 days. As he resumes his normal diet this should correct. We did discuss other sources of potassium including bananas and oranges. He should have repeat blood work at [facility] with his follow-up appointment. (6) Infective endocarditis Is this a current diagnosis for this admission?: No Summary: Blood cultures were negative and echocardiogram did not reveal vegetations. Endocarditis ruled out. - Additional Information Resuscitation Status: Full Code Discharge Diet: Diabetic Discharge Activity: Activity As Tolerated Prescriptions: Amoxicillin Trihydrate [Amoxil 500 mg Capsule] 500 mg PO Q8 7 Days #21 capsule Hum Insulin NPH/Reg Insulin Hm [Insulin Inj 70-30 (100 Unit/1 ml) 3 ml Vial] 50 unit SUBCUT DAILY 30 Days #10 ml Potassium Chloride 10 meq PO TID #30 capsule.er Home Medications: Amoxicillin Trihydrate [Amoxil 500 mg Capsule] 500 mg PO Q8 7 Days #21 capsule 09/20/18 Hum Insulin NPH/Reg Insulin Hm [Insulin Inj 70-30 (100 Unit/1 ml) 3 ml Vial] 50 unit SUBCUT DAILY 30 Days #10 ml 09/20/18 Potassium Chloride 10 meq PO TID #30 capsule.er 09/20/18 Additional Information: Simple dressing (large Band-Aid) to the lesion on the antecubital fossa. Change daily. Keep the area clean and dry. History of Present Illness Patient complains of: Severe diabetic ketoacidosis and abscess on left arm History of Present Illness: FAITH RAVI is a 18 year old male with a history of type 1 diabetes mellitus and noncompliance with insulin. He has no prescription coverage. He has been abusing heroin. There was an abscess on his left antecubital fossa which was drained in the emergency department. He was markedly acidotic with extremely low bicarbonate and elevated glucose. He was referred to the hospital service for admission. Hospital Course Hospital Course: The patient was placed on broad-spectrum antibiotics. The culture from the abscess revealed beta-hemolytic strep group C this is usually sensitive to penicillins. Change the patient to amoxicillin by mouth. The patient was weaned off of the insulin drip. His blood glucoses have been under 200 on Lantus and Humalog. Unfortunately without prescription coverage these would be prohibitive. I have changed patient to 70/30 insulin with equivalent dosing. We will also set the patient up at [facility]. The patient's potassium was low throughout his stay. He is on oral suppleme ntation. This should correct with resumption of his diet. Physical Exam Vital Signs: Temp Pulse Resp BP Pulse Ox 98.5 F 77 16 119/58 L 100 09/20/18 03:27 09/20/18 03:27 09/20/18 03:27 09/20/18 03:27 09/20/18 03:27 Intake & Output 09/19/18 09/20/18 09/21/18 06:59 06:59 06:59 Intake Total 1402 562 Output Total 1450 800 Balance -48 -238 Weight 53.5 kg 53 kg General appearance: PRESENT: no acute distress, cooperative, thin, well- developed Head exam: PRESENT: atraumatic, normocephalic Respiratory exam: PRESENT: clear to auscultation santhosh, symmetrical, unlabored. ABSENT: accessory muscle use, rales, rhonchi, tachypnea, wheezes Cardiovascular exam: PRESENT: RRR, +S1, +S2, systolic murmur - 2/6 GI/Abdominal exam: PRESENT: normal bowel sounds, soft. ABSENT: distended, tenderness Rectal exam: PRESENT: deferred Extremities exam: ABSENT: pedal edema Musculoskeletal exam: PRESENT: ambulatory Neurological exam: PRESENT: alert, awake, oriented to person, oriented to place, oriented to time, oriented to situation, CN II-XII grossly intact Psychiatric exam: PRESENT: appropriate affect, normal mood, other - Completely cooperative today. ABSENT: agitated, anxious Focused psych exam: ABSENT: delusional, restlessness Skin exam: PRESENT: other - Healing abscess left antecubital fossa Results Laboratory Results: 09/20/18 05:15 09/20/18 05:15 09/19/18 09/19/18 09/19/18 09:32 11:20 15:55 WBC RBC Hgb Hct MCV MCH MCHC RDW Plt Count Seg Neutrophils % Lymphocytes % Monocytes % Eosinophils % Basophils % Absolute Neutrophils Absolute Lymphocytes Absolute Monocytes Absolute Eosinophils Absolute Basophils Carbonic Acid 0.83 L HCO3/H2CO3 Ratio 23:1 ABG pH 7.46 H ABG pCO2 27.7 L ABG pO2 121.7 H ABG HCO3 19.3 L ABG O2 Saturation 98.6 H ABG Base Excess -3.3 FiO2 21% Sodium 132.3 L 132.8 L Potassium 3.4 L 3.3 L Chloride 104 103 Carbon Dioxide 21 L 22 Anion Gap 7 8 BUN 9 6 L Creatinine 0.35 L 0.36 L Est GFR ( Amer) > 60 > 60 Est GFR (Non-Af Amer) > 60 > 60 Glucose 211 H 138 H Calcium 8.3 L 8.8 Magnesium 2.1 Urine Color Urine Appearance Urine pH Ur Specific Guston Urine Protein Urine Glucose (UA) Urine Ketones Urine Blood Urine Nitrite Ur Leukocyte Esterase Urine WBC (Auto) Urine RBC (Auto) 09/19/18 09/20/18 09/20/18 16:30 05:15 05:15 WBC 5.0 RBC 4.44 Hgb 10.5 L Hct 31.8 L MCV 72 L MCH 23.7 L MCHC 33.1 RDW 15.5 H Plt Count 174 Seg Neutrophils % 59.0 Lymphocytes % 25.4 Monocytes % 14.6 H Eosinophils % 0.4 Basophils % 0.6 Absolute Neutrophils 2.9 Absolute Lymphocytes 1.3 Absolute Monocytes 0.7 Absolute Eosinophils 0.0 Absolute Basophils 0.0 Carbonic Acid HCO3/H2CO3 Ratio ABG pH ABG pCO2 ABG pO2 ABG HCO3 ABG O2 Saturation ABG Base Excess FiO2 Sodium 131.7 L Potassium 3.1 L Chloride 101 Carbon Dioxide 21 L Anion Gap 10 BUN 5 L Creatinine 0.31 L Est GFR ( Amer) > 60 Est GFR (Non-Af Amer) > 60 Glucose 185 H Calcium 8.2 L Magnesium 2.0 Urine Color YELLOW Urine Appearance CLEAR Urine pH 6.0 Ur Specific Guston 1.027 Urine Protein NEGATIVE Urine Glucose (UA) >=500 H Urine Ketones NEGATIVE Urine Blood NEGATIVE Urine Nitrite NEGATIVE Ur Leukocyte Esterase NEGATIVE Urine WBC (Auto) 1 Urine RBC (Auto) 0 Impressions: Chest X-Ray 09/18/18 00:00 IMPRESSION: Central venous catheter tip in the SVC. Underlying hyperinflation copyright 2010 [employer]- All Rights Reserved Extremity Ultrasound 09/18/18 00:00 IMPRESSION: 3.4 x 2.8 x 1.4 cm heterogeneous hypoechoic region in the left an tecubital fossa with some increased vascularity suggesting indurated tissue. Small amount of subcutaneous free fluid and a few foci area of echogenic areas suggesting gas, this is consistent with the reported history that the patient had an abscess drained in the emergency room earlier. Elbow X-Ray 09/18/18 00:02 IMPRESSION: Negative exam copyright 2010 [employer]- All Rights Reserved Qualifiers - * PATIENT BEING DISCHARGED WITH ANY OF THE FOLLOWING DIAGNOSIS: No Acute Heart Failure - Is this a Heart Failure Patient?: No Plan Discharge Plan: Discharged home with follow-up appointment at [facility] Time Spent: Greater than 30 Minutes
[2018-09-20] MEDS: INSULIN LISPRO 100 UNIT/ML 3 ML VIAL SUBCUT SCH ×2 (08:56→11:41)
[2018-09-20] MEDS: INSULIN GLARGINE,HUM.REC.ANLOG 1,000 UNIT/10 ML VIAL SUBCUT SCH (08:59)
[2018-09-20] MEDS: POTASSIUM CHLORIDE 10 MEQ CAPSULE.ER PO SCH (09:00)
[2018-09-20] MEDS: DOCUSATE SODIUM 100 MG CAPSULE PO SCH (09:01)
[2018-09-20 11:42] VITALS: BP 121/52
--- NOTE | 2018-09-20 22:03 | XCELERA REPORT ---
[address] [address] Transthoracic Echocardiogram Report Name: FAITH RAVI Age: 18 yrs Gender: Male : 2000 Patient Status: Inpatient Patient Location: ICU^601^A Study Date: 09/18/2018 10:20 AM Height: 68 in Weight: 110 lb BSA: 1.6 m2 Procedure: A two-dimensional transthoracic echocardiogram with color flow and Doppler was performed. The study was technically limited with all images being suboptimal in quality. Reason For Study: ivdu, systolic murmur History: ivdu, systolic murmur. Ordering Physician: RAMILA PARSON Performed By: Saskia Sapp Interpretation Summary The left ventricle is normal in size. The left ventricular ejection fraction is within normal limits. LV EF is 60% Doppler measurements suggest normal left ventricular diastolic function The left ventricular wall motion is normal. There is no thrombus. No ASD,VSD , or PFO seeen. The right ventricle is normal in size and function. The right atrium is normal. There is an artifact in the RA seen only in some views. The left atrial size is normal. There is no vegetation seen on the mitral valve. There is no mitral valve stenosis. There is borderline mitral valve prolapse. There is a trace amount of mitral regurgitation There is no aortic valvular vegetation. There is no aortic valve stenosis There is no LVOT obstruction. No aortic regurgitation is present. There is no tricuspid valve vegetation. There is no tricuspid stenosis. There is a trace amount of tricuspid regurgitation Unable to calculate RVSP due to insufficient TR jet. There is no vegetation on the pulmonic valve. There is no pulmonic valvular stenosis. There is a mild amount of pulmonic regurgitation The aortic root is normal size. There is no pericardial effusion. MMode/2D Measurements & Calculations RVDd: 2.6 cm LVIDd: 4.1 cm FS: 30.9 % Ao root diam: 2.8 cm IVSd: 1.00 cm LVIDs: 2.8 cm EDV(Teich): 72.4 ml Ao root area: 6.2 cm2 LVPWd: 1.0 cm ESV(Teich): 29.7 ml LA dimension: 2.8 cm EF(Teich): 59.0 % Doppler Measurements & Calculations MV E max fabián: MV P1/2t max fabián: Ao V2 max: LV V1 max P.5 cm/sec 55.5 cm/sec 88.4 cm/sec 2.0 mmHg MV A max fabián: MV P1/2t: 40.0 msec Ao max P.1 mmHg LV V1 max: 36.7 cm/sec MVA(P1/2t): 5.5 cm2 70.6 cm/sec MV E/A: 1.5 MV dec slope: 406.9 cm/sec2 MV dec time: 0.13 sec PA V2 max: PI end-d fabián: MV P1/2t-pr_phl: 90.8 cm/sec 86.9 cm/sec 40.0 msec PA max P.3 mmHg Left Ventricle The left ventricle is normal in size. There is normal left ventricular wall thickness. The left ventricular ejection fraction is within normal limits. LV EF is 60%. Doppler measurements suggest normal left ventricular diastolic function. The left ventricular wall motion is normal. There is no thrombus. No ASD,VSD , or PFO seeen. Right Ventricle The right ventricle is normal in size and function. Atria The right atrium is normal. There is an artifact in the RA seen only in some views. The left atrial size is normal. Mitral Valve There is no vegetation seen on the mitral valve. There is borderline mitral valve prolapse. There is no mitral valve stenosis. There is a trace amount of mitral regurgitation. Aortic Valve There is no aortic valvular vegetation. There is no aortic valve stenosis. There is no LVOT obstruction. No aortic regurgitation is present. Tricuspid Valve There is no tricuspid valve vegetation. There is no tricuspid stenosis. There is a trace amount of tricuspid regurgitation. Unable to calculate RVSP due to insufficient TR jet. Pulmonic Valve There is no vegetation on the pulmonic valve. There is no pulmonic valvular stenosis. There is a mild amount of pulmonic regurgitation. Great Vessels The aortic root is normal size. Effusions There is no pericardial effusion. : RAMILA PARSON > Ese Cyr
== END 2018-09-20 14:11 | disposition home or self-care (01) | DRG 871 ==
LOC: ER 23:28 → EH 09-18 02:40 → ICU 09-18 03:41 → 4W 09-19 23:19
PROVIDERS: ADMIT Internal Medicine; ATTEND Internal Medicine
PROC: 02HV33Z Insertion of Infusion Device into Superior Vena Cava, Percutaneous Approach (ICD-10-PCS; principal; 2018-09-18)
PROC: 0H9EXZX Drainage of Left Lower Arm Skin, External Approach, Diagnostic (ICD-10-PCS; 2018-09-18)
DX: A41.9 Sepsis, unspecified organism (principal); E10.10 Type 1 diabetes mellitus with ketoacidosis without coma; L02.414 Cutaneous abscess of left upper limb; E86.0 Dehydration; E87.6 Hypokalemia; F11.10 Opioid abuse, uncomplicated; J45.909 Unspecified asthma, uncomplicated; B95.4 Other streptococcus as the cause of diseases classified elsewhere; F17.200 Nicotine dependence, unspecified, uncomplicated; Z91.14 Patient's other noncompliance with medication regimen; Z79.4 Long term (current) use of insulin
CPT/HCPCS: 36415; 36600; 71045; 76882; 80048; 80053; 80074; 80307; 81001; 82803; 82962; 83036; 83735; 85025; 86701; 87040; 87070; 87077; 87205; 93306; 99284; C1751; J0692; J0696; J1642; J1815; J2405; J2997; J3370; J3480; J3490; J7030; J7050; J7060; J7120

== ENCOUNTER 2018-10-31 06:44 | Inpatient (IN) | payer MEDICAID ==
[2018-10-31] MEDS ORDERED: NORMAL SALINE 1000 ML 1,000 ML IV ONE ×2 (07:19→08:00)
[2018-10-31 07:33] LABS: VENOUS BLOOD BASE EXCESS -30.5 mmol/L; VENOUS BLOOD HCO3 1.9 mmol/L (20-32)
[2018-10-31 07:41] LABS: HEMATOCRIT 45.2 % (37.9-51.0); MEAN CORPUSCULAR HEMOGLOBIN 23.6 pg (27.0-33.4); MEAN CORPUSCULAR HGB CONC 28.8 g/dL (32.0-36.0); MEAN CORPUSCULAR VOLUME 82 fl (80-97); PLATELET COUNT 436 10^3/uL (150-450); RED BLOOD COUNT 5.52 10^6/uL (4.35-5.55); RED CELL DISTRIBUTION WIDTH 16.7 % (11.5-14.0); WHITE BLOOD COUNT 27.4 10^3/uL (4.0-10.5)
[2018-10-31 07:44] LABS: VENOUS BLOOD PH 6.86 (7.30-7.42)
[2018-10-31] MEDS ORDERED: INSULIN REG, HUMAN 100 UNIT/ML 3 ML VIAL (PYX) IV ONE (08:00)
[2018-10-31 08:19] LABS: ABSOLUTE LYMPHOCYTES# (MANUAL) 0.8 10^3/uL (0.5-4.7); ABSOLUTE MONOCYTES # (MANUAL) 0.8 10^3/uL (0.1-1.4); BAND NEUTROPHILS % (MANUAL) 1 % (3-5); BASOPHILS % (MANUAL) 0 % (0-2); EOSINOPHILS % (MANUAL) 0 % (0-6); LYMPHOCYTES % (MANUAL) 3 % (13-45); MONOCYTES % (MANUAL) 3 % (3-13); SEGMENTED NEUTROPHILS % (MAN) 93 % (42-78); TOTAL CELLS COUNTED 100
[2018-10-31 08:20] LABS: PLATELET COMMENT ADEQUATE; POIKILOCYTOSIS SLIGHT; POLYCHROMASIA SLIGHT; SCHISTOCYTES SLIGHT; TEAR DROP CELLS SLIGHT
[2018-10-31] MEDS ORDERED: GLUCAGON,HUMAN RECOMB 1 MG INJ IM PRN ×2 (08:30→11:09)
[2018-10-31] MEDS ORDERED: DEXTROSE 40% GEL 15 GM TUBE X 2 PO PRN (08:30)
[2018-10-31] MEDS ORDERED: INSULIN, REGULAR 100 UNIT/100 ML NORMAL SALINE IV PRN ×2 (08:30)
[2018-10-31] MEDS ORDERED: DEXTROSE 50%-WATER SYRINGE 25 GM/50 ML DOSE IV PRN (08:30)
[2018-10-31] MEDS ORDERED: DEXTROSE 50%-WATER SYRINGE 12.5 GM/25 ML DOSE IV PRN (08:30)
[2018-10-31] MEDS ORDERED: DEXTROSE 40% GEL 15 GM TUBE PO PRN ×3 (08:30→11:09)
[2018-10-31] MEDS ORDERED: CEFEPIME 1 GM/D5W RTU 1 GM/50 ML RTUPB IV ONE (08:46)
[2018-10-31 09:09] LABS: APPEARANCE,URINE CLEAR; BILIRUBIN,URINE NEGATIVE (NEGATIVE); COLOR,URINE STRAW; GLUCOSE, URINE >=500 mg/dL (NEGATIVE); KETONES,URINE 80 mg/dL (NEGATIVE); LEUKOCYTE ESTERASE,URINE NEGATIVE (NEGATIVE); NITRITE,URINE NEGATIVE (NEGATIVE); PROTEIN,URINE 30 mg/dL (NEGATIVE); URINE SPECIFIC GRAVITY 1.011; UROBILINOGEN,URINE NEGATIVE mg/dL (<2.0)
[2018-10-31 09:22] LABS: ALBUMIN 3.5 g/dL (3.5-5.0); ALKALINE PHOSPHATASE 178 U/L (38-126); ASPARTATE AMINO TRANSFERASE 134 U/L (17-59); BILIRUBIN,DIRECT 0.6 mg/dL (0.0-0.4); BILIRUBIN,TOTAL 0.6 mg/dL (0.2-1.3); BLOOD UREA NITROGEN 17 mg/dL (7-20); CALCIUM 8.1 mg/dL (8.4-10.2); GLUCOSE 376 mg/dL (75-110); TOTAL PROTEIN 6.4 g/dL (6.3-8.2)
[2018-10-31 09:24] LABS: POTASSIUM 4.8 mmol/L (3.6-5.0)
[2018-10-31 09:25] LABS: URINE AMPHETAMINES SCREEN NEGATIVE; URINE BARBITURATES SCREEN NEGATIVE; URINE BENZODIAZEPINES SCREEN NEGATIVE; URINE COCAINE SCREEN NEGATIVE; URINE MARIJUANA (THC) SCREEN NEGATIVE; URINE METHADONE SCREEN NEGATIVE; URINE PHENCYCLIDINE SCREEN NEGATIVE
[2018-10-31 09:34] LABS: CHLORIDE 103 mmol/L (98-107)
[2018-10-31 09:42] LABS: CARBON DIOXIDE < 5 mmol/L (22-30)
--- NOTE | 2018-10-31 10:21 | ER Document Report ---
ED General - General Chief Complaint: High Blood Sugar Stated Complaint: BLOOD SUGAR ISSUES Time Seen by Provider: 10/31/18 07:12 Primary Care Provider: CHANNING PEACOCK MD [Primary Care Provider] - Follow up as needed TRAVEL OUTSIDE OF THE [place] IN LAST 30 DAYS: No COUNTRY TRAVELED TO/FROM: [facility] - HPI Notes: Patient is a 18-year-old male who presents to the emergency department for evaluation. He is not a forthcoming historian. He denies any pain, he just states to me he feels like he is in DKA. He states he has been taking his insulin, 7030, as directed. He denies any nausea or vomiting. He does have a history of heroin abuse, injects regularly. He states he has not used today. He generally just feels weak, and short of breath. He denies any cough. No dysuria. He does say he has an abscess on his right forearm from IV drug abuse. He had an open area on his left forearm consistent with recent abscess as well. He cannot further delineate the timelines in regards to those wounds. - Related Data Allergies/Adverse Reactions: No Known Allergies Allergy (Verified 09/17/18 23:29) Past Medical History - General Information source: Patient - Social History Smoking Status: Current Every Day Smoker Frequency of alcohol use: Heavy Drug Abuse: Heroin Family History: Reviewed & Not Pertinent, Hypertension, Other - Lupus Patient has suicidal ideation: No Patient has homicidal ideation: No Pulmonary Medical History: Reports: Hx Asthma Endocrine Medical History: Reports: Hx Diabetes Mellitus Type 1 Renal/ Medical History: Denies: Hx Peritoneal Dialysis Past Surgical History: Reports: Hx Abdominal Surgery - Immunizations Immunizations up to date: Yes Hx Diphtheria, Pertussis, Tetanus Vaccination: Yes Review of Systems - Review of Systems Constitutional: See HPI EENT: No symptoms reported Cardiovascular: No symptoms reported Respiratory: No symptoms reported Gastrointestinal: See HPI Genitourinary: No symptoms reported Male Genitourinary: No symptoms reported Musculoskeletal: No symptoms reported Skin: See HPI Neurological/Psychological: See HPI Physical Exam - Vital signs Vitals: Resp BP 25 H 152/90 H 10/31/18 06:59 10/31/18 06:59 - Notes Notes: This is a cachectic appearing 18-year-old male in a moderate amount of distress. Trimming Inspector small respirations. He is drowsy, but GCS of 14. Head is normocephalic any traumatic. Pupils are equal round, reactive to light. Oral mucosa is moist. Heart is mildly tachycardic with normal S1-S2. Lungs are clear to auscu ltation bilaterally. Abdomen is soft, nontender, normoactive bowel sounds. Patient has findings consistent with a fluctuant abscess on his right forearm, dorsal aspect. There is no significant surrounding induration or erythema. Neurovascularly intact to right upper extremity. Patient is drowsy but arouses easily to verbal stimuli. He will not fully cooperate with the entire neurological exam. He has no gross facial asymmetry. He moves all 4 extremities spontaneously. Course - Re-evaluation Re-evalutation: 10/31/18 10:19 Patient presents emergency department for evaluation. Is very mildly tachycardic on arrival with increased respirations. He was found to be markedly hypothermic. Bear hugger and warm fluids were placed. Laboratory investigations were obtained. He has a marked leukocytosis. Given this inform ation I did order blood cultures and a lactate. Patient's metabolic panel is consistent with an anion gap metabolic acidosis, most likely DKA. Patient was given cefepime to cover for sepsis. His abscess does not seem to have any signs of local cellulitis. I did review his Gram stain and culture from prior abscess, which revealed simply beta-hemolytic strep. Given insulin drip at 5 units an hour. Contacted the medicine team, patient has been accepted for admission to the ICU. Currently calling Dr. Ann for acceptance. - Vital Signs Vital signs: Temp Pulse Resp BP Pulse Ox 93 F L 26 H 151/95 H 10/31/18 09:30 10/31/18 07:01 10/31/18 07:00 - Laboratory Result Diagrams: 10/31/18 07:10 10/31/18 08:41 Laboratory results interpreted by me: 10/31/18 10/31/18 10/31/18 06:54 07:10 07:10 WBC 27.4 H Hgb 13.0 L MCH 23.6 L MCHC 28.8 L RDW 16.7 H Seg Neuts % (Manual) 93 H Band Neutrophils % 1 L Lymphocytes % (Manual) 3 L Abs Neuts (Manual) 25.8 H VBG pH 6.86 L* VBG pCO2 11.0 L* VBG HCO3 1.9 L Sodium Carbon Dioxide Glucose POC Glucose 389 H Calcium Direct Bilirubin AST Alkaline Phosphatase Lipase Urine Protein Urine Glucose (UA) Urine Ketones Urine Blood 10/31/18 10/31/18 10/31/18 08:23 08:41 08:54 WBC Hgb MCH MCHC RDW Seg Neuts % (Manual) Band Neutrophils % Lymphocytes % (Manual) Abs Neuts (Manual) VBG pH VBG pCO2 VBG HCO3 Sodium 132.5 L Carbon Dioxide < 5 L* Glucose 376 H POC Glucose 366 H Calcium 8.1 L Direct Bilirubin 0.6 H AST 134 H Alkaline Phosphatase 178 H Lipase 1777.1 H Urine Protein 30 H Urine Glucose (UA) >=500 H Urine Ketones 80 H Urine Blood MODERATE H 10/31/18 09:31 WBC Hgb MCH MCHC RDW Seg Neuts % (Manual) Band Neutrophils % Lymphocytes % (Manual) Abs Neuts (Manual) VBG pH VBG pCO2 VBG HCO3 Sodium Carbon Dioxide Glucose POC Glucose 335 H Calcium Direct Bilirubin AST Alkaline Phosphatase Lipase Urine Protein Urine Glucose (UA) Urine Ketones Urine Blood Critical Care Note - Critical Care Note Total time excluding time spent on procedures (mins): 20 Discharge - Discharge Clinical Impression: Heroin abuse, Abscess of right arm Hypothermia Qualifiers: Encounter type: initial encounter Qualified Code(s): T68.XXXA - Hypothermia, initial encounter Diabetic ketoacidosis Qualifiers: Diabetes mellitus type: type 1 Diabetes mellitus complication detail: without coma Qualified Code(s): E10.10 - Type 1 diabetes mellitus with ketoacidosis without coma Sepsis Qualifiers: Sepsis type: sepsis due to unspecified organism Disposition: ADMITTED INPATIENT Admitting Provider: Marissa (Hospitalist) Unit Admitted: ICU Referrals: CHANNING PEACOCK MD [Primary Care Provider] - Follow up as needed
[2018-10-31] MEDS ORDERED: DEXTROSE 5%-WATER 1000 ML 1,000 ML with SODIUM BICARBONATE 100 MEQ IV PRN ×4 (10:25→11:07)
[2018-10-31] MEDS ORDERED: NORMAL SALINE 1000 ML 1,000 ML IV PRN (11:01)
[2018-10-31] MEDS ORDERED: ONDANSETRON HCL INJ/PF 4 MG/2 ML SDV IV PRN (11:01)
[2018-10-31] MEDS ORDERED: ACETAMINOPHEN 325 MG TABLET PO PRN (11:01)
[2018-10-31] MEDS ORDERED: DEXTROSE 50%-WATER 25 GM/50 ML DISP.SYRIN IV PRN ×2 (11:09)
--- NOTE | 2018-10-31 11:31 | PDOC H&P ---
History of Present Illness Admission Date/PCP: 10/31/18 11:05 CHANNING MADONNA Patient complains of: Patient was brought in by family with complaints of increasing difficulty in breathing from this morning. History of Present Illness: FAITH RAVI is a 18 year old male history of type 1 diabetes mellitus on insulin at home, IV drug abuser brought in by family with complaints of increasing shortness of breath. The family is not sure whether he is compliant with this medication or not. Patient is not giving much information. Mother states patient is also has a IV heroin user. The work-up was done in the emergency room shows patient is in DKA with ABG pH is around 6.8 serum bicarb is less than 5 WBC count of 20,400 latest blood sugar is 288 tachycardic tachypneic and hypothermic with a temperature of 91 and medical consult was requested for admission. mother is requesting to put the patient under IVC commitment. Past Medical History Pulmonary Medical History: Reports: Asthma Endocrine Medical History: Reports: Diabetes Mellitus Type 1 Social History Smoking Status: Current Every Day Smoker Frequency of Alcohol Use: None Hx Recreational Drug Use: Yes Drugs: Heroin - Advance Directive Resuscitation Status: Full Code Family History Family History: Reviewed & Not Pertinent, Hypertension, Other - Lupus Parental Family History Reviewed: Yes - Mother with history of lupus and hypertension Father with type 2 diabetes m Children Family History Reviewed: Yes Sibling(s) Family History Reviewed.: Yes Medication/Allergy Allergies/Adverse Reactions: No Known Allergies Allergy (Verified 09/17/18 23:29) Review of Systems Constitutional: ABSENT: fatigue, fever(s), headache(s), weakness Eyes: ABSENT: visual disturbances Ears: ABSENT: hearing changes Nose, Mouth, and Throat: ABSENT: sore throat Cardiovascular: ABSENT: dyspnea on exertion, palpitations Respiratory: PRESENT: dyspnea Gastrointestinal: PRESENT: nausea, vomiting Neurological: ABSENT: abnormal gait, abnormal speech, confusion, dizziness, focal weakness, syncope Psychiatric: ABSENT: anxiety, depression, homidical ideation, suicidal ideation Physical Exam Vital Signs: Temp Pulse Resp BP Pulse Ox 93 F L 28 H 169/100 H 100 10/31/18 09:30 10/31/18 11:03 10/31/18 11:03 10/31/18 11:03 Intake & Output 10/30/18 10/31/18 11/01/18 06:59 06:59 06:59 Intake Total 2011 Balance 2011 Weight 53.3 kg General appearance: PRESENT: cooperative, mild distress Head exam: PRESENT: atraumatic Eye exam: PRESENT: PERRLA Mouth exam: PRESENT: moist, tongue midline Neck exam: ABSENT: carotid bruit, JVD, lymphadenopathy, thyromegaly Respiratory exam: PRESENT: clear to auscultation santhosh. ABSENT: rales, rhonchi, w heezes Cardiovascular exam: PRESENT: tachycardia GI/Abdominal exam: PRESENT: normal bowel sounds, soft. ABSENT: distended, guarding, mass, organolmegaly, rebound, tenderness Rectal exam: PRESENT: deferred Extremities exam: PRESENT: full ROM. ABSENT: calf tenderness, clubbing, pedal edema Neurological exam: PRESENT: alert, awake, CN II-XII grossly intact Psychiatric exam: PRESENT: appropriate affect, normal mood. ABSENT: homicidal ideation, suicidal ideation Skin exam: PRESENT: other - Patient is IV drug abuser small puslike lesions on both arms present. Results Laboratory Results: 10/31/18 07:10 10/31/18 08:41 10/31/18 10/31/18 10/31/18 07:10 07:10 07:10 WBC 27.4 H RBC 5.52 Hgb 13.0 L Hct 45.2 MCV 82 MCH 23.6 L MCHC 28.8 L RDW 16.7 H Plt Count 436 Seg Neutrophils % Not Reportable Lymphocytes % Not Reportable Monocytes % Not Reportable Eosinophils % Not Reportable Basophils % Not Reportable Absolute Neutrophils Not Reportable Absolute Lymphocytes Not Reportable Absolute Monocytes Not Reportable Absolute Eosinophils Not Reportable Absolute Basophils Not Reportable VBG pH 6.86 L* VBG pCO2 11.0 L* VBG HCO3 1.9 L VBG Base Excess -30.5 Sodium Cancelled Potassium Cancelled Chloride Cancelled Carbon Dioxide Cancelled Anion Gap Cancelled BUN Cancelled Creatinine Cancelled Est GFR ( Amer) Cancelled Est GFR (Non-Af Amer) Cancelled Glucose Cancelled Lactic Acid Calcium Cancelled Total Bilirubin Cancelled AST Cancelled Alkaline Phosphatase Cancelled Total Protein Cancelled Albumin Cancelled Lipase Cancelled Urine Color Urine Appearance Urine pH Ur Specific Tatum Urine Protein Urine Glucose (UA) Urine Ketones Urine Blood Urine Nitrite Ur Leukocyte Esterase Urine WBC (Auto) Urine RBC (Auto) 10/31/18 10/31/18 10/31/18 08:41 08:41 08:54 WBC RBC Hgb Hct MCV MCH MCHC RDW Plt Count Seg Neutrophils % Lymphocytes % Monocytes % Eosinophils % Basophils % Absolute Neutrophils Absolute Lymphocytes Absolute Monocytes Absolute Eosinophils Absolute Basophils VBG pH VBG pCO2 VBG HCO3 VBG Base Excess Sodium 132.5 L Potassium 4.8 Chloride 103 Carbon Dioxide < 5 L* Anion Gap Not Reportable BUN 17 Creatinine 0.91 Est GFR ( Amer) > 60 Est GFR (Non-Af Amer) > 60 Glucose 376 H Lactic Acid 1.6 Calcium 8.1 L Total Bilirubin 0.6 AST 134 H Alkaline Phosphatase 178 H Total Protein 6.4 Albumin 3.5 Lipase 1777.1 H Urine Color STRAW Urine Appearance CLEAR Urine pH 5.0 Ur Specific Tatum 1.011 Urine Protein 30 H Urine Glucose (UA) >=500 H Urine Ketones 80 H Urine Blood MODERATE H Urine Nitrite NEGATIVE Ur Leukocyte Esterase NEGATIVE Urine WBC (Auto) 1 Urine RBC (Auto) 0 Assessment and Plan - Diagnosis (1) Diabetic ketoacidosis Qualifiers: Diabetes mellitus type: type 1 Diabetes mellitus complication detail: [facility] coma Qualified Code(s): E10.10 - Type 1 diabetes mellitus with ket oacidosis without coma Is this a current diagnosis for this admission?: Yes Plan: 10/31/2018-patient is going to be admitted to ICU for DKA. He is going to be n.p.o. to start on IV fluids normal saline at 200 cc/h, insulin drip as per the protocol, IV sodium bicarb in sterile water, IV antibiotics cephapirin and IV vancomycin because of the history of IV drug user. GI prophylaxis DVT prophylaxis initiated. Blood cultures urine cultures sputum cultures are requested. Sepsis protocol is going to be implemented. Repeat lactic acid will be done. Psych consult was requested for possible IVC and surgical consult was requested for need for central line. Put the patient on nicotine patch. To start on IV hydralazine 10 mg every 4 hours PRN for systolic blood pressure more than 160. electroLight protocol is implemented. (2) Heroin abuse Is this a current diagnosis for this admission?: No Plan: 10/31/2018-patient is not give the information when was the last time he had IV drug use but the mom is saying he is sleeping all day at home yesterday she thinks he took some heroin yesterday. Urine drug screen is positive for opiates. Consult was requested for probable IVC and for history of IV heroin use. (3) Sepsis Qualifiers: Sepsis type: sepsis due to unspecified organism Is this a current diagnosis for this admission?: Yes Plan: 10/31/2018-patient came in with hypothermia, tachypnea, tachycardia and metabolic acidosis most likely he has a sepsis blood cultures urine cultures sputum cultures are requested patient was given IV cefepime in the ER plan is to con tinue IV cephapirin and IV vancomycin was added. (4) Hypothermia Qualifiers: Encounter type: initial encounter Qualified Code(s): T68.XXXA - Hypothermia, initial encounter Is this a current diagnosis for this admission?: Yes Plan: 10/31/2018-patient temperature is 91 in the emergency room max wu was applied hypothermia most likely secondary to sepsis. (5) Hyponatremia Is this a current diagnosis for this admission?: Yes Plan: 10/31/2018-patient serum sodium is 132.5, blood sugar is 288 corrected sodium most likely around 135. Hyponatremia most likely secondary to DKA. (6) HTN (hypertension) Is this a current diagnosis for this admission?: Yes Plan: 10/31/2018-patient admitted with hypertensive urgency latest blood pressure is 169/102 start on IV hydralazine 10 mg every 4 PRN for systolic blood pressure more than 150. (7) Tobacco use Is this a current diagnosis for this admission?: No Plan: 10/31/2018-patient is a current day smoker smoking counseling was provided for more than 10 minutes to start him on nicotine patch from today. - Time Time Spent with patient: 35 or more minutes Smoking Cessation Education: over 10 minutes Medications reviewed and adjusted accordingly: Yes Anticipated discharge: Home
[2018-10-31] MEDS ORDERED: HYDRALAZINE HCL INJ/PF 20 MG/1 ML SDV IV PRN (11:32)
[2018-10-31] MEDS: NICOTINE 14 MG/24 HR PATCH.TD24 TD SCH (11:56)
[2018-10-31] MEDS ORDERED: SODIUM BICARBONATE 8.4% INJ 50 MEQ/50 ML DISP.SYRIN IV ONE (12:00)
[2018-10-31 12:24] LABS: ARTERIAL BLOOD BASE EXCESS -25.3 mmol/L; ARTERIAL BLOOD FIO2 ROOM AIR; ARTERIAL BLOOD H2CO3 0.29 mmol/L (1.05-1.35); ARTERIAL BLOOD HCO3 2.6 mmol/L (20-24); ARTERIAL BLOOD O2 SATURATION 97.8 % (94-98); ARTERIAL BLOOD PO2 141.7 mmHg (80-100); ARTERIAL BLOOD TOTAL CO2 2.9 mmol/L (23-27)
[2018-10-31 12:25] LABS: ARTERIAL BLOOD PCO2 9.5 mmHg (35-45); ARTERIAL BLOOD PH 7.06 (7.35-7.45)
[2018-10-31] MEDS: WATER FOR INJECTION,STERILE 1,000 ML with SODIUM BICARBONATE 100 MEQ IV PRN ×2 (12:31)
[2018-10-31] MEDS: NORMAL SALINE 100 ML with INSULIN REGULAR, HUMAN 100 UNIT IV PRN ×4 (12:39→19:49)
[2018-10-31 12:55] LABS: CREATINE KINASE MB 1.43 ng/mL (<4.55)
[2018-10-31 13:01] LABS: TROPONIN I < 0.012 ng/mL
[2018-10-31 13:42] LABS: ALBUMIN 3.2 g/dL (3.5-5.0); ALKALINE PHOSPHATASE 140 U/L (38-126); ASPARTATE AMINO TRANSFERASE 128 U/L (17-59); BILIRUBIN,DIRECT 0.5 mg/dL (0.0-0.4); BILIRUBIN,TOTAL 0.5 mg/dL (0.2-1.3); BLOOD UREA NITROGEN 18 mg/dL (7-20); CALCIUM 8.4 mg/dL (8.4-10.2); CHLORIDE 104 mmol/L (98-107); GLUCOSE 266 mg/dL (75-110); POTASSIUM 4.1 mmol/L (3.6-5.0); TOTAL PROTEIN 5.9 g/dL (6.3-8.2)
[2018-10-31 13:48] LABS: ANION GAP 23 (5-19); CARBON DIOXIDE 6 mmol/L (22-30)
[2018-10-31] MEDS ORDERED: DEXTROSE 5%-NORMAL SALINE 1,000 ML IV PRN (15:55)
[2018-10-31] MEDS: VANCOMYCIN HCL 1,000 MG in DEXTROSE 5%-WATER 250 ML IV SCH (16:09)
[2018-10-31 17:30] LABS: ANION GAP 14 (5-19); BLOOD UREA NITROGEN 14 mg/dL (7-20); CALCIUM 8.5 mg/dL (8.4-10.2); CARBON DIOXIDE 13 mmol/L (22-30); CHLORIDE 103 mmol/L (98-107); GLUCOSE 114 mg/dL (75-110)
[2018-10-31 17:37] LABS: POTASSIUM 2.9 mmol/L (3.6-5.0)
[2018-10-31 17:42] LABS: CREATINE KINASE MB 1.49 ng/mL (<4.55)
[2018-10-31 17:49] LABS: TROPONIN I < 0.012 ng/mL
[2018-10-31] MEDS ORDERED: POTASSI CL 20 MEQ/D5-1/2NS 1L 1000 ML IV PRN (17:59)
[2018-10-31] MEDS ORDERED: VANCOMYCIN HCL INJ 1000 MG VIAL IV SCH (18:00)
[2018-10-31] MEDS: POTASSIUM CHLORIDE 20 MEQ/50 ML RTU IV SCH ×3 (18:34→23:13)
[2018-10-31] MEDS: CEFEPIME HCL 2 GM in DEXTROSE 5%-WATER 50 ML IV SCH (21:32)
[2018-10-31] MEDS ORDERED: CEFEPIME 2 GM/D5W RTU 2 GM/50 ML RTUPB IV SCH (22:00)
[2018-10-31] MEDS ORDERED: PANTOPRAZOLE SODIUM 40 MG VIAL IV SCH (22:00)
--- NOTE | 2018-10-31 22:28 | XCELERA REPORT ---
[address] [address] Transthoracic Echocardiogram Report Name: FAITH RAVI Age: 18 yrs Gender: Male : 2000 Patient Status: Inpatient Patient Location: ICU^605^A Study Date: 10/31/2018 02:03 PM Weight: 117 lb Procedure: A two-dimensional transthoracic echocardiogram with color flow and Doppler was performed. The study was technically limited with all images being suboptimal in quality. Images were not obtained from all of the standard acoustic windows due to the limited scope of the study. Reason For Study: endocarditis History: endocarditis. Ordering Physician: ANDRE CRESPO Performed By: Sandi Collado Interpretation Summary The left ventricle is normal in size. There is normal left ventricular wall thickness. No 'True 2 chamber ' views obtained.Hence cannot comment on the apical and basal inferior ,and the apical and basal anterior armenta.The mid anterior ,the mid inferior , and the rest of the LV waaaalls contract normally.The LVEF in these limited views is normal at 60%. Doppler measurements suggest normal left ventricular diastolic function There is no thrombus. No ASD ,VSD,or PFO seen. The right ventricle is not well visualized secondary to technical limitations The right atrium is normal. The left atrial size is normal. There is no evidence of mitral valve prolapse. There is no vegetation seen on the mitral valve. There is no mitral valve stenosis. There is no aortic valve stenosis There is no LVOT obstruction. There is no aortic valvular vegetation. No aortic regurgitation is present. There is no tricuspid stenosis. There is a trace amount of tricuspid regurgitation There is no tricuspid valve vegetation. Unable to calculate RVSP due to insufficient TR jet. There is no pulmonic valvular stenosis. The aortic root is normal size. The inferior vena cava appeared normal and decreased > 50% with respiration (RAP 5-10 mmHg) Small pericardial effusion. There are no echocardiographic or Doppler indications for cardiac tamponade MMode/2D Measurements & Calculations RVDd: 2.0 cm LVIDd: 4.1 cm FS: 31.5 % Ao root diam: 3.1 cm IVSd: 0.68 cm LVIDs: 2.8 cm EDV(Teich): 72.5 ml LVPWd: 0.79 cm ESV(Teich): 29.0 ml Ao root area: 7.5 cm2 EF(Teich): 59.9 % Doppler Measurements & Calculations MV E max fabián: MV dec slope: Ao V2 max: LV V1 max P.9 cm/sec 99.0 cm/sec 2.6 mmHg MV A max fabián: 393.2 cm/sec2 Ao max PG: LV V1 max: 51.3 cm/sec MV dec time: 0.19 sec 3.9 mmHg 81.0 cm/sec MV E/A: 1.5 PA V2 max: PI end-d fabián: 85.7 cm/sec 58.7 cm/sec PA max P.9 mmHg Left Ventricle The left ventricle is normal in size. There is normal left ventricular wall thickness. No 'True 2 chamber ' views obtained.Hence cannot comment on the apical and basal inferior ,and the apical and basal anterior armenta.The mid anterior ,the mid inferior , and the rest of the LV waaaalls contract normally.The LVEF in these limited views is normal at 60%. Doppler measurements suggest normal left ventricular diastolic function. There is no thrombus. No ASD ,VSD,or PFO seen. Right Ventricle The right ventricle is not well visualized secondary to technical limitations. Atria The right atrium is normal. The left atrial size is normal. Mitral Valve There is no evidence of mitral valve prolapse. There is no vegetation seen on the mitral valve. There is no mitral valve stenosis. There is a trace amount of mitral regurgitation. Aortic Valve There is no aortic valvular vegetation. There is no aortic valve stenosis. There is no LVOT obstruction. No aortic regurgitation is present. Tricuspid Valve There is no tricuspid valve vegetation. There is no tricuspid stenosis. There is a trace amount of tricuspid regurgitation. Unable to calculate RVSP due to insufficient TR jet. Pulmonic Valve There is no pulmonic valvular stenosis. There is a trace amount of pulmonic regurgitation. Great Vessels The aortic root is normal size. The inferior vena cava appeared normal and decreased > 50% with respiration (RAP 5-10 mmHg). Effusions Small pericardial effusion. There are no echocardiographic or Doppler indications for cardiac tamponade. : ANDRE CRESPO > Ese Cyr
[2018-10-31 23:35] LABS: TROPONIN I < 0.012 ng/mL
[2018-11-01] MEDS: WATER FOR INJECTION,STERILE 1,000 ML with SODIUM BICARBONATE 100 MEQ IV PRN ×2 (00:18)
[2018-11-01 00:43] LABS: ANION GAP 12 (5-19); BLOOD UREA NITROGEN 12 mg/dL (7-20); CALCIUM 8.3 mg/dL (8.4-10.2); CARBON DIOXIDE 17 mmol/L (22-30); CHLORIDE 101 mmol/L (98-107); GLUCOSE 72 mg/dL (75-110)
[2018-11-01] MEDS: VANCOMYCIN HCL 1,000 MG in DEXTROSE 5%-WATER 250 ML IV SCH ×2 (01:34→16:20)
[2018-11-01] MEDS ORDERED: INSULIN REG, HUMAN 100 UNIT/ML 3 ML VIAL (PYX) SUBCUT PRN (02:29)
[2018-11-01] MEDS: INSULIN REG, HUMAN 100 UNIT/ML 3 ML VIAL (PYX) SUBCUT PRN ×2 (02:49→06:49)
[2018-11-01 05:49] LABS: INTERNATIONAL RATION (INR) 1.06; PROTHROMBIN TIME 13.9 SEC (11.4-15.4)
[2018-11-01 05:55] LABS: HEMATOCRIT 39.9 % (37.9-51.0); HEMOGLOBIN 12.9 g/dL (13.5-17.0); MEAN CORPUSCULAR HEMOGLOBIN 23.7 pg (27.0-33.4); MEAN CORPUSCULAR HGB CONC 32.4 g/dL (32.0-36.0); PLATELET COUNT 266 10^3/uL (150-450); RED BLOOD COUNT 5.47 10^6/uL (4.35-5.55); RED CELL DISTRIBUTION WIDTH 15.3 % (11.5-14.0); WHITE BLOOD COUNT 13.9 10^3/uL (4.0-10.5)
[2018-11-01 06:01] LABS: ALBUMIN 3.2 g/dL (3.5-5.0); ALKALINE PHOSPHATASE 130 U/L (38-126); AMYLASE 328 U/L (30-110); ANION GAP 15 (5-19); ASPARTATE AMINO TRANSFERASE 105 U/L (17-59); BILIRUBIN,DIRECT 0.4 mg/dL (0.0-0.4); BILIRUBIN,TOTAL 0.8 mg/dL (0.2-1.3); BLOOD UREA NITROGEN 11 mg/dL (7-20); CALCIUM 8.6 mg/dL (8.4-10.2); CARBON DIOXIDE 18 mmol/L (22-30); CHLORIDE 97 mmol/L (98-107); CHOLESTEROL 61.78 mg/dL (0-200); GLUCOSE 245 mg/dL (75-110); POTASSIUM 3.2 mmol/L (3.6-5.0); TOTAL PROTEIN 5.8 g/dL (6.3-8.2); TRIGLYCERIDES 45 mg/dL (<150)
[2018-11-01 06:15] LABS: DIRECT LDL < 30 mg/dL (<100)
[2018-11-01] MEDS: POTASSIUM CHLORIDE 20 MEQ/50 ML RTU IV SCH ×2 (06:47→09:12)
[2018-11-01 07:31] LABS: MEAN CORPUSCULAR VOLUME 73 fl (80-97)
[2018-11-01 07:36] LABS: ABSOLUTE LYMPHOCYTES# (MANUAL) 0.3 10^3/uL (0.5-4.7); ABSOLUTE MONOCYTES # (MANUAL) 1.5 10^3/uL (0.1-1.4); BAND NEUTROPHILS % (MANUAL) 3 % (3-5); BASOPHILS % (MANUAL) 0 % (0-2); EOSINOPHILS % (MANUAL) 0 % (0-6); LYMPHOCYTES % (MANUAL) 2 % (13-45); MONOCYTES % (MANUAL) 11 % (3-13); SEGMENTED NEUTROPHILS % (MAN) 84 % (42-78); TOTAL CELLS COUNTED 100
[2018-11-01 07:38] LABS: ANISOCYTOSIS SLIGHT; HYPOCHROMASIA 1+; OVALOCYTES SLIGHT; PLATELET COMMENT ADEQUATE; POIKILOCYTOSIS SLIGHT; SCHISTOCYTES SLIGHT
[2018-11-01] MEDS ORDERED: DEXTROSE 50%-WATER 25 GM/50 ML DISP.SYRIN IV PRN ×2 (08:10)
[2018-11-01] MEDS ORDERED: DEXTROSE 40% GEL 15 GM TUBE PO PRN ×2 (08:10)
[2018-11-01] MEDS ORDERED: GLUCAGON,HUMAN RECOMB 1 MG INJ IM PRN (08:10)
--- NOTE | 2018-11-01 08:21 | PDOC PROGRESS REPORT ---
Subjective Progress Note for:: 11/01/18 Subjective:: 18 year old male history of type 1 diabetes mellitus on insulin at home, IV drug abuser brought in by family with complaints of increasing shortness of breath. The family is not sure whether he is compliant with this medication or not. Patient is not giving much information. Mother states patient is also has a IV heroin user. The work-up was done in the emergency room shows patient is in DKA with ABG pH is around 6.8 serum bicarb is less than 5 WBC count of 20,400 latest blood sugar is 288 tachycardic tachypneic and hypothermic with a temperature of 91 and medical consult was requested for admission. mother is requesting to put the patient under IVC commitment. 11/01/18-whqm-old male with history of type 1 diabetes mellitus on insulin, IV heroin abuser admitted with the DKA bicarb at the time of admission is less than 5 and bicarb is improved to 18 in the lab this morning he was also admitted with hyponatremia hyperglycemia and metabolic acidosis hyperkalemia all those abnormalities are resolving. He is also admitted with hypertensive urgen cy/emergency blood pressure is improved to 129/84. Insulin drip was discontinued and he was started on a Jell-O diet today plan is to change the blood sugar monitoring to before meals and at bedtime restart his home insulin and downgrade him to medical floor today. Reason For Visit: DKA Physical Exam Vital Signs: Temp Pulse Resp BP Pulse Ox 98.4 F 85 17 129/84 H 100 11/01/18 03:49 10/31/18 20:28 11/01/18 06:00 11/01/18 05:25 11/01/18 06:00 Intake & Output 10/31/18 11/01/18 11/02/18 06:59 06:59 06:59 Intake Total 3380 Output Total 2015 Balance 1365 Weight 54.1 kg General appearance: PRESENT: no acute distress Head exam: PRESENT: atraumatic Eye exam: PRESENT: PERRLA Mouth exam: PRESENT: dry mucosa Teeth exam: PRESENT: poor dentation Neck exam: ABSENT: carotid bruit, JVD, lymphadenopathy, thyromegaly Respiratory exam: PRESENT: clear to auscultation santhosh. ABSENT: rales, rhonchi, wheezes Cardiovascular exam: PRESENT: RRR. ABSENT: diastolic murmur, rubs, systolic murmur GI/Abdominal exam: PRESENT: normal bowel sounds, soft. ABSENT: distended, guarding, mass, organolmegaly, rebound, tenderness Rectal exam: PRESENT: deferred Extremities exam: PRESENT: full ROM. ABSENT: calf tenderness, clubbing, pedal edema Neurological exam: PRESENT: alert, awake, oriented to person, oriented to place, oriented to time, oriented to situation, CN II-XII grossly intact. ABSENT: motor sensory deficit Psychiatric exam: PRESENT: appropriate affect, normal mood. ABSENT: homicidal ideation, suicidal ideation Results Laboratory Results: 11/01/18 05:17 11/01/18 05:17 10/31/18 10/31/18 10/31/18 07:10 08:41 08:41 WBC 27.4 H RBC 5.52 Hgb 13.0 L Hct 45.2 MCV 82 MCH 23.6 L MCHC 28.8 L RDW 16.7 H Plt Count 436 Seg Neutrophils % Lymphocytes % Monocytes % Eosinophils % Basophils % Absolute Neutrophils Absolute Lymphocytes Absolute Monocytes Absolute Eosinophils Absolute Basophils Carbonic Acid HCO3/H2CO3 Ratio ABG pH ABG pCO2 ABG pO2 ABG HCO3 ABG O2 Saturation ABG Base Excess FiO2 Sodium 132.5 L Potassium 4.8 Chloride 103 Carbon Dioxide < 5 L* Anion Gap Not Reportable BUN 17 Creatinine 0.91 Est GFR ( Amer) > 60 Est GFR (Non-Af Amer) > 60 Glucose 376 H Lactic Acid 1.6 Calcium 8.1 L Magnesium Total Bilirubin 0.6 AST 134 H Alkaline Phosphatase 178 H Total Protein 6.4 Albumin 3.5 Triglycerides Cholesterol LDL Cholesterol Direct VLDL Cholesterol HDL Cholesterol Amylase Lipase 1777.1 H TSH Urine Color Urine Appearance Urine pH Ur Specific [place] Urine Protein Urine Glucose (UA) Urine Ketones Urine Blood Urine Nitrite Ur Leukocyte Esterase Urine WBC (Auto) Urine RBC (Auto) 10/31/18 10/31/18 10/31/18 08:54 11:30 11:30 WBC RBC Hgb Hct MCV MCH MCHC RDW Plt Count Seg Neutrophils % Lymphocytes % Monocytes % Eosinophils % Basophils % Absolute Neutrophils Absolute Lymphocytes Absolute Monocytes Absolute Eosinophils Absolute Basophils Carbonic Acid 0.29 L HCO3/H2CO3 Ratio 8:1 ABG pH 7.06 L* ABG pCO2 9.5 L* ABG pO2 141.7 H ABG HCO3 2.6 L ABG O2 Saturation 97.8 ABG Base Excess -25.3 FiO2 ROOM AIR Sodium Potassium Chloride Carbon Dioxide Anion Gap BUN Creatinine Est GFR ( Amer) Est GFR (Non-Af Amer) Glucose Lactic Acid Calcium Magnesium Total Bilirubin AST Alkaline Phosphatase Total Protein Albumin Triglycerides Cholesterol LDL Cholesterol Direct VLDL Cholesterol HDL Cholesterol Amylase Lipase TSH Urine Color STRAW Cancelled Urine Appearance CLEAR Cancelled Urine pH 5.0 Cancelled Ur Specific [place] 1.011 Cancelled Urine Protein 30 H Cancelled Urine Glucose (UA) >=500 H Cancelled Urine Ketones 80 H Cancelled Urine Blood MODERATE H Cancelled Urine Nitrite NEGATIVE Cancelled Ur Leukocyte Esterase NEGATIVE Cancelled Urine WBC (Auto) 1 Cancelled Urine RBC (Auto) 0 Cancelled 10/31/18 10/31/18 10/31/18 12:00 14:59 17:03 WBC RBC Hgb Hct MCV MCH MCHC RDW Plt Count Seg Neutrophils % Lymphocytes % Monocytes % Eosinophils % Basophils % Absolute Neutrophils Absolute Lymphocytes Absolute Monocytes Absolute Eosinophils Absolute Basophils Carbonic Acid HCO3/H2CO3 Ratio ABG pH ABG pCO2 ABG pO2 ABG HCO3 ABG O2 Saturation ABG Base Excess FiO2 Sodium 133.4 L 130.0 L Potassium 4.1 2.9 L* D Chloride 104 103 Carbon Dioxide 6 L* 13 L Anion Gap 23 H 14 BUN 18 14 Creatinine 0.76 0.49 L Est GFR ( Amer) > 60 > 60 Est GFR (Non-Af Amer) > 60 > 60 Glucose 266 H 114 H Lactic Acid 1.0 Calcium 8.4 8.5 Magnesium Total Bilirubin 0.5 AST 128 H Alkaline Phosphatase 140 H Total Protein 5.9 L Albumin 3.2 L Triglycerides Cholesterol LDL Cholesterol Direct VLDL Cholesterol HDL Cholesterol Amylase Lipase TSH Urine Color Urine Appearance Urine pH Ur Specific [place] Urine Protein Urine Glucose (UA) Urine Ketones Urine Blood Urine Nitrite Ur Leukocyte Esterase Urine WBC (Auto) Urine RBC (Auto) 10/31/18 11/01/18 11/01/18 22:59 05:17 05:17 WBC 13.9 H RBC 5.47 Hgb 12.9 L Hct 39.9 MCV 73 L D MCH 23.7 L MCHC 32.4 RDW 15.3 H Plt Count 266 Seg Neutrophils % Not Reportable Lymphocytes % Not Reportable Monocytes % Not Reportable Eosinophils % Not Reportable Basophils % Not Reportable Absolute Neutrophils Not Reportable Absolute Lymphocytes Not Reportable Absolute Monocytes Not Reportable Absolute Eosinophils Not Reportable Absolute Basophils Not Reportable Carbonic Acid HCO3/H2CO3 Ratio ABG pH ABG pCO2 ABG pO2 ABG HCO3 ABG O2 Saturation ABG Base Excess FiO2 Sodium 129.5 L 129.5 L Potassium 3.0 L* 3.2 L Chloride 101 97 L Carbon Dioxide 17 L 18 L Anion Gap 12 15 BUN 12 11 Creatinine 0.45 L 0.45 L Est GFR ( Amer) > 60 > 60 Est GFR (Non-Af Amer) > 60 > 60 Glucose 72 L 245 H Lactic Acid Calcium 8.3 L 8.6 Magnesium 1.8 Total Bilirubin 0.8 AST 105 H Alkaline Phosphatase 130 H Total Protein 5.8 L Albumin 3.2 L Triglycerides 45 Cholesterol 61.78 LDL Cholesterol Direct < 30 VLDL Cholesterol 9.0 L HDL Cholesterol 48 Amylase 328 H Lipase 2011.3 H TSH Urine Color Urine Appearance Urine pH Ur Specific [place] Urine Protein Urine Glucose (UA) Urine Ketones Urine Blood Urine Nitrite Ur Leukocyte Esterase Urine WBC (Auto) Urine RBC (Auto) 11/01/18 05:17 WBC RBC Hgb Hct MCV MCH MCHC RDW Plt Count Seg Neutrophils % Lymphocytes % Monocytes % Eosinophils % Basophils % Absolute Neutrophils Absolute Lymphocytes Absolute Monocytes Absolute Eosinophils Absolute Basophils Carbonic Acid HCO3/H2CO3 Ratio ABG pH ABG pCO2 ABG pO2 ABG HCO3 ABG O2 Saturation ABG Base Excess FiO2 Sodium Potassium Chloride Carbon Dioxide Anion Gap BUN Creatinine Est GFR ( Amer) Est GFR (Non-Af Amer) Glucose Lactic Acid Calcium Magnesium Total Bilirubin AST Alkaline Phosphatase Total Protein Albumin Triglycerides Cholesterol LDL Cholesterol Direct VLDL Cholesterol HDL Cholesterol Amylase Lipase TSH 0.61 Urine Color Urine Appearance Urine pH Ur Specific [place] Urine Protein Urine Glucose (UA) Urine Ketones Urine Blood Urine Nitrite Ur Leukocyte Esterase Urine WBC (Auto) Urine RBC (Auto) 10/31/18 10/31/18 10/31/18 12:00 17:03 22:59 CK-MB (CK-2) 1.43 1.49 1.30 Troponin I < 0.012 < 0.012 < 0.012 Assessment and Plan - Diagnosis (1) Diabetic ketoacidosis Qualifiers: Diabetes mellitus type: type 1 Diabetes mellitus complication detail: without coma Qualified Code(s): E10.10 - Type 1 diabetes mellitus with ketoacidosis without coma Is this a current diagnosis for this admission?: Yes Plan: 10/31/2018-patient is going to be admitted to ICU for DKA. He is going to be n.p.o. to start on IV fluids normal saline at 200 cc/h, insulin drip as per the protocol, IV sodium bicarb in sterile water, IV antibiotics cephapirin and IV vancomycin because of the history of IV drug user. GI prophylaxis DVT prophylaxis initiated. Blood cultures urine cultures sputum cultures are requested. Sepsis protocol is going to be implemented. Repeat lactic acid will be done. Psych consult was requested for possible IVC and surgical consult was requested for need for central line. Put the patient on nicotine patch. To start on IV hydralazine 10 mg every 4 hours PRN for systolic blood pressure more than 160. electroLight protocol is implemented. 11/01/2018-patient is stable DKA is resolved. Potassium is 3.3 electrode protocol was implemented he is getting potassium supplementation. Bicarb is improved to 18. Off the insulin drip the latest blood sugar is 274 to start him on insulin sliding scale before meals and at bedtime and restart his home insulin. Dietary consult will be requested hemoglobin A1c is more than 14. (2) Heroin abuse Is this a current diagnosis for this admission?: No Plan: 10/31/2018-patient is not give the information when was the last time he had IV drug use but the mom is saying he is sleeping all day at home yesterday she thinks he took some heroin yesterday. Urine drug screen is positive for opiates. Consult was requested for probable IVC and for history of IV heroin use. 11/01/2018-patient has history of IV drug abuse especially heroin counseling was provided. (3) Sepsis Qualifiers: Sepsis type: sepsis due to unspecified organism Is this a current diagnosis for this admission?: Yes Plan: 10/31/2018-patient came in with hypothermia, tachypnea, tachycardia and metabolic acidosis most likely he has a sepsis blood cultures urine cultures sputum cultures are requested patient was given IV cefepime in the ER plan is to continue IV cephapirin and IV vancomycin was added. 11/01/2018-patient came in with elevated WBC count and small lesions in the bilateral upper extremities secondary to IV drug abuse white cell count came down to 13,400 and echocardiogram was negative for endocarditis presently on IV vancomycin and Zosyn plan is to continue the antibiotics. (4) Hypothermia Qualifiers: Encounter type: initial encounter Qualified Code(s): T68.XXXA - Hypothermia, initial encounter Is this a current diagnosis for this admission?: Yes Plan: 10/31/2018-patient temperature is 91 in the emergency room max wu was applied hypothermia most likely secondary to sepsis. 11/01/2018-patient came in with hypothermia temperature was 91 in the emergency room today temperature is 98.4 and hyponatremia is resolved. (5) Hyponatremia Is this a current diagnosis for this admission?: Yes Plan: 10/31/2018-patient serum sodium is 132.5, blood sugar is 288 corrected sodium most likely around 135. Hyponatremia most likely secondary to DKA. 11/01/2018-serum sodium is 129.5 today hyponatremia most likely secondary to diab etic ketoacidosis which was resolving. Plan is to closely monitor his serum sodium levels. Sugar is 274 corrected serum sodium is around 132. (6) HTN (hypertension) Is this a current diagnosis for this admission?: Yes Plan: 10/31/2018-patient admitted with hypertensive urgency latest blood pressure is 169/102 start on IV hydralazine 10 mg every 4 PRN for systolic blood pressure more than 150. 11/01/2018-patient came in with hypertensive urgency with blood pressure of 169/102 today's blood pressure is 129/84. Plan is to continue the present management. (7) Tobacco use Is this a current diagnosis for this admission?: No - Time Time Spent with patient: 35 or more minutes Smoking Cessation Education: over 10 minutes Medications reviewed and adjusted accordingly: Yes Anticipated discharge: Home
--- NOTE | 2018-11-01 08:52 | RADIOLOGY REPORT (SQ) ---
EXAM DESCRIPTION: CHEST SINGLE VIEW COMPLETED DATE/TIME: 11/01/2018 6:34 am REASON FOR STUDY: shortness of breath COMPARISON: CT chest 07/13/2018 chest films 07/13/2018, 09/18/2018 EXAM PARAMETERS: NUMBER OF VIEWS: One view. TECHNIQUE: Single frontal radiographic view of the chest acquired. RADIATION DOSE: NA LIMITATIONS: Artifact from dreadlocks over the right and left supraclavicular regions FINDINGS: LUNGS AND PLEURA: No opacities, masses or pneumothorax. No pleural effusion. MEDIASTINUM AND HILAR STRUCTURES: No masses. Contour normal. HEART AND VASCULAR STRUCTURES: Heart normal in size. Normal vasculature. BONES: No acute findings. HARDWARE: None in the chest. OTHER: No other significant finding. IMPRESSION: NO ACUTE RADIOGRAPHIC FINDING IN THE CHEST. TECHNICAL DOCUMENTATION: JOB ID: [id number] [employer]- All Rights Reserved Reading location - IP/workstation name: [email or web address]
[2018-11-01] MEDS: NORMAL SALINE 1000 ML 1,000 ML IV PRN (09:16)
[2018-11-01] MEDS: HUM INSULIN NPH/REG INSULIN HM 100 UNIT/1 ML 3 ML SUBCUT SCH ×2 (11:01→17:21)
[2018-11-01] MEDS: ENOXAPARIN SODIUM INJ 40 MG/0.4 ML DISP.SYRIN SUBCUT SCH (11:01)
[2018-11-01] MEDS: POTASSIUM CHLORIDE 10 MEQ CAPSULE.ER PO SCH ×4 (11:01→21:48)
[2018-11-01] MEDS: NICOTINE 14 MG/24 HR PATCH.TD24 TD SCH (11:01)
[2018-11-01] MEDS: CEFEPIME HCL 2 GM in DEXTROSE 5%-WATER 50 ML IV SCH ×2 (11:02→21:49)
[2018-11-01] MEDS: INSULIN REG, HUMAN 100 UNIT/ML 3 ML VIAL (PYX) SUBCUT SCH ×3 (11:41→21:47)
[2018-11-01 13:22] LABS: ANION GAP 12 (5-19); BLOOD UREA NITROGEN 9 mg/dL (7-20); CALCIUM 8.5 mg/dL (8.4-10.2); CARBON DIOXIDE 21 mmol/L (22-30); CHLORIDE 95 mmol/L (98-107); GLUCOSE 247 mg/dL (75-110); POTASSIUM 3.1 mmol/L (3.6-5.0)
--- NOTE | 2018-11-01 17:26 | PSYCHOLOGICAL NOTE ---
Psych Note - Psych Note Date seen by psych provider: 11/01/18 Time seen by psych provider: 16:25 Psych Note: Impression/Plan: patient is cleared from acute psychiatric services. Patient disclosed he has been refusing his insulin needles for his heroin, "only sometimes and that was just before." He denies any thoughts of wanting to harm himself or others. He is not demonstrating any behaviors of responding to internal stimuli and probably engages with clinician i.e. good eye contact him a organized linear thought processes and normal conversational tone speech. Patient discloses he would be interested in sobriety and is willing to take resources. Please contact the behavioral health team prior to discharge so resources can be provided. Dr. Maxwell was consulted to care management of this patient; attending physicians in agreement with recommendations and disposition.
[2018-11-01 18:44] LABS: ANION GAP 9 (5-19); BLOOD UREA NITROGEN 8 mg/dL (7-20); CALCIUM 8.5 mg/dL (8.4-10.2); CARBON DIOXIDE 25 mmol/L (22-30); CHLORIDE 96 mmol/L (98-107); GLUCOSE 214 mg/dL (75-110)
[2018-11-01 18:49] LABS: POTASSIUM 2.7 mmol/L (3.6-5.0)
[2018-11-02 01:12] LABS: ANION GAP 8 (5-19); BLOOD UREA NITROGEN 8 mg/dL (7-20); CALCIUM 8.2 mg/dL (8.4-10.2); CARBON DIOXIDE 24 mmol/L (22-30); CHLORIDE 99 mmol/L (98-107); GLUCOSE 201 mg/dL (75-110); POTASSIUM 3.2 mmol/L (3.6-5.0)
[2018-11-02] MEDS: VANCOMYCIN HCL 1,000 MG in DEXTROSE 5%-WATER 250 ML IV SCH (01:23)
[2018-11-02] MEDS: POTASSIUM CHLORIDE 10 MEQ CAPSULE.ER PO SCH ×3 (06:11→21:25)
[2018-11-02] MEDS: NORMAL SALINE 1000 ML 1,000 ML IV PRN (06:54)
[2018-11-02] MEDS: INSULIN REG, HUMAN 100 UNIT/ML 3 ML VIAL (PYX) SUBCUT SCH ×4 (07:32→21:25)
[2018-11-02] MEDS: HUM INSULIN NPH/REG INSULIN HM 100 UNIT/1 ML 3 ML SUBCUT SCH ×2 (09:43→17:09)
[2018-11-02] MEDS: NICOTINE 14 MG/24 HR PATCH.TD24 TD SCH (09:43)
[2018-11-02] MEDS: ENOXAPARIN SODIUM INJ 40 MG/0.4 ML DISP.SYRIN SUBCUT SCH (10:01)
--- NOTE | 2018-11-02 10:05 | PDOC PROGRESS REPORT ---
Subjective Progress Note for:: 11/02/18 Subjective:: 18 year old male history of type 1 diabetes mellitus on insulin at home, IV drug abuser brought in by family with complaints of increasing shortness of breath. The family is not sure whether he is compliant with this medication or not. Patient is not giving much information. Mother states patient is also has a IV heroin user. The work-up was done in the emergency room shows patient is in DKA with ABG pH is around 6.8 serum bicarb is less than 5 WBC count of 20,400 latest blood sugar is 288 tachycardic tachypneic and hypothermic with a temperature of 91 and medical consult was requested for admission. mother is requesting to put the patient under IVC commitment. 11/01/54-okmg-old male with history of type 1 diabetes mellitus on insulin, IV heroin abuser admitted with the DKA bicarb at the time of admission is less than 5 and bicarb is improved to 18 in the lab this morning he was also admitted with hyponatremia hyperglycemia and metabolic acidosis hyperkalemia all those abnormalities are resolving. He is also admitted with hypertensive urgen cy/emergency blood pressure is improved to 129/84. Insulin drip was discontinued and he was started on a Jell-O diet today plan is to change the blood sugar monitoring to before meals and at bedtime restart his home insulin and downgrade him to medical floor today. 11/02/80-czse-old male with history of type 1 diabetes mellitus on insulin admitted with the DKA , DKA is resolved. No acute events in the last 24 hours patient was downgraded to IMCU yesterday. Serum potassium today is 3.2 pota ssium supplementations on board patient refused labs this morning when I went to talk to him he agreed to have labs at least one time. Reason For Visit: DKA Physical Exam Vital Signs: Temp Pulse Resp BP Pulse Ox 97.9 F 85 16 111/37 L 100 11/01/18 23:22 11/01/18 23:22 11/01/18 23:22 11/01/18 23:22 11/01/18 23:22 Intake & Output 11/01/18 11/02/18 11/03/18 06:59 06:59 06:59 Intake Total 3379 2051 Output Total 2014 999 Balance 1365 1052 Weight 54.1 kg 54.1 kg General appearance: PRESENT: no acute distress Head exam: PRESENT: atraumatic Eye exam: PRESENT: PERRLA Ear exam: PRESENT: normal external ear exam Mouth exam: PRESENT: neck supple Teeth exam: PRESENT: poor dentation Neck exam: ABSENT: carotid bruit, JVD, lymphadenopathy, thyromegaly Respiratory exam: PRESENT: clear to auscultation santhosh. ABSENT: rales, rhonchi, wheezes Cardiovascular exam: PRESENT: RRR. ABSENT: diastolic murmur, rubs, systolic murmur GI/Abdominal exam: PRESENT: normal bowel sounds, soft. ABSENT: distended, guarding, mass, organolmegaly, rebound, tenderness Rectal exam: PRESENT: deferred Extremities exam: PRESENT: full ROM. ABSENT: calf tenderness, clubbing, pedal edema Neurological exam: PRESENT: alert, awake, oriented to person, oriented to place, oriented to time, oriented to situation, CN II-XII grossly intact. ABSENT: motor sensory deficit Psychiatric exam: PRESENT: appropriate affect, normal mood. ABSENT: homicidal ideation, suicidal ideation Results Laboratory Results: 11/01/18 05:17 11/02/18 00:32 11/01/18 11/01/18 11/02/18 12:39 18:02 00:32 Sodium 127.8 L 129.8 L 131.0 L Potassium 3.1 L 2.7 L* 3.2 L Chloride 95 L 96 L 99 Carbon Dioxide 21 L 25 24 Anion Gap 12 9 8 BUN 9 8 8 Creatinine 0.37 L 0.36 L 0.36 L Est GFR ( Amer) > 60 > 60 > 60 Est GFR (Non-Af Amer) > 60 > 60 > 60 Glucose 247 H 214 H 201 H Calcium 8.5 8.5 8.2 L 10/31/18 08:54 Clean Catch Midstream Urine Culture - Final NO GROWTH 2 DAYS 10/31/18 10/31/18 10/31/18 12:00 17:03 22:59 CK-MB (CK-2) 1.43 1.49 1.30 Troponin I < 0.012 < 0.012 < 0.012 Impressions: Chest X-Ray 11/01/18 06:00 IMPRESSION: NO ACUTE RADIOGRAPHIC FINDING IN THE CHEST. Assessment and Plan - Diagnosis (1) Diabetic ketoacidosis Qualifiers: Diabetes mellitus type: type 1 Diabetes mellitus complication detail: without coma Qualified Code(s): E10.10 - Type 1 diabetes mellitus with ketoacidosis without coma Is this a current diagnosis for this admission?: Yes Plan: 10/31/2018-patient is going to be admitted to ICU for DKA. He is going to be n.p.o. to start on IV fluids normal saline at 200 cc/h, insulin drip as per the protocol, IV sodium bicarb in sterile water, IV antibiotics cephapirin and IV vancomycin because of the history of IV drug user. GI prophylaxis DVT prophylaxis initiated. Blood cultures urine cultures sputum cultures are reque sted. Sepsis protocol is going to be implemented. Repeat lactic acid will be done. Psych consult was requested for possible IVC and surgical consult was requested for need for central line. Put the patient on nicotine patch. To start on IV hydralazine 10 mg every 4 hours PRN for systolic blood pressure more than 160. electroLight protocol is implemented. 11/01/2018-patient is stable DKA is resolved. Potassium is 3.3 electrode protocol was implemented he is getting potassium supplementation. Bicarb is improved to 18. Off the insulin drip the latest blood sugar is 274 to start him on insulin sliding scale before meals and at bedtime and restart his home insulin. Dietary consult will be requested hemoglobin A1c is more than 14. 11/02/2018-patient admitted with DKA which was resolved. At the time of admission bicarb was less than 5 this morning is 24. Latest blood sugar is 146. Serum potassium is 3.2 today is getting a 40 mg of p.o. potassium 3 times a day. Patient initially really refused the lab work this morning IV plan to check labs this evening. (2) Heroin abuse Is this a current diagnosis for this admission?: No Plan: 10/31/2018-patient is not give the information when was the last time he had IV drug use but the mom is saying he is sleeping all day at home yesterday she thinks he took some heroin yesterday. Urine drug screen is positive for opiates. Consult was requested for probable IVC and for history of IV heroin use. 11/01/2018-patient has history of IV drug abuse especially heroin counseling was provided. 11/02/2018-patient has a history of heroin use psych consult was done. pt is clear ed by the psych team. (3) Sepsis Qualifiers: Sepsis type: sepsis due to unspecified organism Is this a current diagnosis for this admission?: Yes Plan: 10/31/2018-patient came in with hypothermia, tachypnea, tachycardia and metabolic acidosis most likely he has a sepsis blood cultures urine cultures sputum cultures are requested patient was given IV cefepime in the ER plan is to continue IV cephapirin and IV vancomycin was added. 11/01/2018-patient came in with elevated WBC count and small lesions in the bilateral upper extremities secondary to IV drug abuse white cell count came down to 13,400 and echocardiogram was negative for endocarditis presently on IV vancomycin and Zosyn plan is to continue the antibiotics. 11/02/2018-patient came in with tachycardia, tachypnea, elevated WBC count he can fevers sepsis is resolved. Blood pressure is stable. (4) Hypothermia Qualifiers: Encounter type: initial encounter Qualified Code(s): T68.XXXA - Hypothermia, initial encounter Is this a current diagnosis for this admission?: Yes (5) Hyponatremia Is this a current diagnosis for this admission?: Yes Plan: 10/31/2018-patient serum sodium is 132.5, blood sugar is 288 corrected sodium most likely around 135. Hyponatremia most likely secondary to DKA. 11/01/2018-serum sodium is 129.5 today hyponatremia most likely secondary to di abetic ketoacidosis which was resolving. Plan is to closely monitor his serum sodium levels. Sugar is 274 corrected serum sodium is around 132. 11/02/2018-patient serum sodium is 131 improving. Hyponatremia most likely secondary to severe dehydration caused by uncontrolled diabetes mellitus. (6) HTN (hypertension) Is this a current diagnosis for this admission?: Yes Plan: 10/31/2018-patient admitted with hypertensive urgency latest blood pressure is 169/102 start on IV hydralazine 10 mg every 4 PRN for systolic blood pressure more than 150. 11/01/2018-patient came in with hypertensive urgency with blood pressure of 169/102 today's blood pressure is 129/84. Plan is to continue the present management. 11/02/2018-patient blood pressure today is 111/57. Stable. Hypertensive urgency resolved. (7) Tobacco use Is this a current diagnosis for this admission?: No - Time Time Spent with patient: 15-24 minutes Medications reviewed and adjusted accordingly: Yes Anticipated discharge: Home
[2018-11-02 10:22] LABS: HEMATOCRIT 34.3 % (37.9-51.0); HEMOGLOBIN 11.3 g/dL (13.5-17.0); MEAN CORPUSCULAR HEMOGLOBIN 23.5 pg (27.0-33.4); MEAN CORPUSCULAR HGB CONC 32.8 g/dL (32.0-36.0); MEAN CORPUSCULAR VOLUME 72 fl (80-97); PLATELET COUNT 204 10^3/uL (150-450); RED BLOOD COUNT 4.78 10^6/uL (4.35-5.55); RED CELL DISTRIBUTION WIDTH 15.1 % (11.5-14.0); WHITE BLOOD COUNT 8.6 10^3/uL (4.0-10.5)
[2018-11-02 10:46] LABS: ALBUMIN 2.6 g/dL (3.5-5.0); ALKALINE PHOSPHATASE 96 U/L (38-126); ANION GAP 5 (5-19); ASPARTATE AMINO TRANSFERASE 38 U/L (17-59); BILIRUBIN,DIRECT 0.3 mg/dL (0.0-0.4); BILIRUBIN,TOTAL 0.7 mg/dL (0.2-1.3); BLOOD UREA NITROGEN 8 mg/dL (7-20); CALCIUM 8.4 mg/dL (8.4-10.2); CARBON DIOXIDE 25 mmol/L (22-30); CHLORIDE 102 mmol/L (98-107); GLUCOSE 267 mg/dL (75-110); POTASSIUM 3.2 mmol/L (3.6-5.0)
[2018-11-02 14:32] LABS: VANCOMYCIN,TROUGH 5.5 ug/mL (5.0-20.0)
[2018-11-03] MEDS: POTASSIUM CHLORIDE 10 MEQ CAPSULE.ER PO SCH ×2 (05:36→14:32)
[2018-11-03] MEDS: HUM INSULIN NPH/REG INSULIN HM 100 UNIT/1 ML 3 ML SUBCUT SCH ×2 (09:15→17:28)
[2018-11-03] MEDS: INSULIN REG, HUMAN 100 UNIT/ML 3 ML VIAL (PYX) SUBCUT SCH ×3 (09:16→16:21)
[2018-11-03] MEDS: ENOXAPARIN SODIUM INJ 40 MG/0.4 ML DISP.SYRIN SUBCUT SCH (09:19)
[2018-11-03] MEDS: NICOTINE 14 MG/24 HR PATCH.TD24 TD SCH (09:32)
[2018-11-03 11:40] LABS: ABSOLUTE LYMPHOCYTES (AUTO) 1.6 10^3/uL (0.5-4.7); ABSOLUTE MONOCYTES (AUTO) 0.8 10^3/uL (0.1-1.4); ABSOLUTE NEUT (AUTO) 8.2 10^3/uL (1.7-8.2); BASOPHILS % (AUTO) 0.4 % (0-2); EOSINOPHILS % (AUTO) 0.1 % (0-6); HEMATOCRIT 35.8 % (37.9-51.0); HEMOGLOBIN 11.6 g/dL (13.5-17.0); MEAN CORPUSCULAR HEMOGLOBIN 23.6 pg (27.0-33.4); MEAN CORPUSCULAR HGB CONC 32.3 g/dL (32.0-36.0); MEAN CORPUSCULAR VOLUME 73 fl (80-97); MONOCYTES % (AUTO) 7.5 % (3-13); PLATELET COUNT 190 10^3/uL (150-450); RED BLOOD COUNT 4.89 10^6/uL (4.35-5.55); RED CELL DISTRIBUTION WIDTH 15.5 % (11.5-14.0); TOTAL CELLS COUNTED % (AUTO) 100 %; WHITE BLOOD COUNT 10.7 10^3/uL (4.0-10.5)
[2018-11-03 11:42] LABS: ALKALINE PHOSPHATASE 88 U/L (38-126); ANION GAP 6 (5-19); ASPARTATE AMINO TRANSFERASE 29 U/L (17-59); BILIRUBIN,DIRECT 0.3 mg/dL (0.0-0.4); BILIRUBIN,TOTAL 0.6 mg/dL (0.2-1.3); BLOOD UREA NITROGEN 7 mg/dL (7-20); CARBON DIOXIDE 28 mmol/L (22-30); CHLORIDE 101 mmol/L (98-107); GLUCOSE 140 mg/dL (75-110); POTASSIUM 4.3 mmol/L (3.6-5.0); TOTAL PROTEIN 5.7 g/dL (6.3-8.2)
--- NOTE | 2018-11-03 11:44 | PDOC PROGRESS REPORT ---
Subjective Progress Note for:: 11/03/18 Subjective:: 18 year old male history of type 1 diabetes mellitus on insulin at home, IV drug abuser brought in by family with complaints of increasing shortness of breath. The family is not sure whether he is compliant with this medication or not. Patient is not giving much information. Mother states patient is also has a IV heroin user. The work-up was done in the emergency room shows patient is in DKA with ABG pH is around 6.8 serum bicarb is less than 5 WBC count of 20,400 latest blood sugar is 288 tachycardic tachypneic and hypothermic with a temperature of 91 and medical consult was requested for admission. mother is requesting to put the patient under IVC commitment. 11/01/[id number]-rtbx-old male with history of type 1 diabetes mellitus on insulin, IV heroin abuser admitted with the DKA bicarb at the time of admission is less than 5 and bicarb is improved to 18 in the lab this morning he was also admitted with hyponatremia hyperglycemia and metabolic acidosis hyperkalemia all those abnormalities are resolving. He is also admitted with hypertensive urgen cy/emergency blood pressure is improved to 129/84. Insulin drip was discontinued and he was started on a Jell-O diet today plan is to change the blood sugar monitoring to before meals and at bedtime restart his home insulin and downgrade him to medical floor today. 11/02/[id number]-abtk-old male with history of type 1 diabetes mellitus on insulin admitted with the DKA , DKA is resolved. No acute events in the last 24 hours patient was downgraded to IMCU yesterday. Serum potassium today is 3.2 potassium supplementations on board patient refused labs this morning when I went to talk to him he agreed to have labs at least one time. 11/[id number]-pzjo-old male with type 1 diabetes mellitus admitted with DKA resolved. Hyponatremia is resolving. Hypokalemia is resolving. He left the floor this morning and diagnosis I am getting that a car by the time security went to find him his back into the hospital. We are going to do the urine drug screen to see if he took anything outside. No acute events in the last 24 hours. Afebrile. We are going to also check his lab work today. Reason For Visit: DKA Physical Exam Vital Signs: Temp Pulse Resp BP Pulse Ox 98.2 F 69 18 125/63 100 11/03/18 00:00 11/03/18 00:00 11/03/18 00:00 11/03/18 00:00 11/03/18 00:00 Intake & Output 11/02/18 11/03/18 11/04/18 06:59 06:59 06:59 Intake Total 2052 730 Output Total 1000 6 Balance 1052 724 Weight 54.1 kg 58 kg General appearance: PRESENT: no acute distress Head exam: PRESENT: atraumatic Eye exam: PRESENT: PERRLA Mouth exam: PRESENT: dry mucosa Teeth exam: PRESENT: poor dentation Neck exam: ABSENT: carotid bruit, JVD, lymphadenopathy, thyromegaly Respiratory exam: PRESENT: clear to auscultation santhosh. ABSENT: rales, rhonchi, wheezes Cardiovascular exam: PRESENT: RRR. ABSENT: diastolic murmur, rubs, systolic murmur GI/Abdominal exam: PRESENT: normal bowel sounds, soft. ABSENT: distended, guarding, mass, organolmegaly, rebound, tenderness Rectal exam: PRESENT: deferred Extremities exam: PRESENT: full ROM. ABSENT: calf tenderness, clubbing, pedal edema Neurological exam: PRESENT: alert, awake, oriented to person, oriented to place, oriented to time, oriented to situation, CN II-XII grossly intact. ABSENT: motor sensory deficit Psychiatric exam: PRESENT: appropriate affect, normal mood. ABSENT: homicidal ideation, suicidal ideation Results Laboratory Results: 10/31/18 08:54 Clean Catch Midstream Urine Culture - Final NO GROWTH 2 DAYS 10/31/18 10/31/18 10/31/18 12:00 17:03 22:59 CK-MB (CK-2) 1.43 1.49 1.30 Troponin I < 0.012 < 0.012 < 0.012 Impressions: Chest X-Ray 11/01/18 06:00 IMPRESSION: NO ACUTE RADIOGRAPHIC FINDING IN THE CHEST. Assessment and Plan - Diagnosis (1) Diabetic ketoacidosis Qualifiers: Diabetes mellitus type: type 1 Diabetes mellitus complication detail: without coma Qualified Code(s): E10.10 - Type 1 diabetes mellitus with ketoacidosis without coma Is this a current diagnosis for this admission?: Yes Plan: 10/31/2018-patient is going to be admitted to ICU for DKA. He is going to be n.p.o. to start on IV fluids normal saline at 200 cc/h, insulin drip as per the protocol, IV sodium bicarb in sterile water, IV antibiotics cephapirin and IV vancomycin because of the history of IV drug user. GI prophylaxis DVT prophylaxis initiated. Blood cultures urine cultures sputum cultures are requested. Sepsis protocol is going to be implemented. Repeat lactic acid will be done. Psych consult was requested for possible IVC and surgical consult was requested for need for central line. Put the patient on nicotine patch. To start on IV hydralazine 10 mg every 4 hours PRN for systolic blood pressure more than 160. electroLight protocol is implemented. 11/01/2018-patient is stable DKA is resolved. Potassium is 3.3 electrode protocol was implemented he is getting potassium supplementation. Bicarb is improved to 18. Off the insulin drip the latest blood sugar is 274 to start him on insulin sliding scale before meals and at bedtime and restart his home insulin. Dietary consult will be requested hemoglobin A1c is more than 14. 11/02/2018-patient admitted with DKA which was resolved. At the time of admission bicarb was less than 5 this morning is 24. Latest blood sugar is 146. Serum potassium is 3.2 today is getting a 40 mg of p.o. potassium 3 times a day. Patient initially really refused the lab work this morning IV plan to check labs this evening. 11/03/[id number]-bnoa-old male admitted with the DKA which was resolving. Latest blood sugar is 234. Plan is to continue Lantus 30 units twice daily and a insulin sliding scale before meals and at bedtime (2) Heroin abuse Is this a current diagnosis for this admission?: No (3) Sepsis Qualifiers: Sepsis type: sepsis due to unspecified organism Is this a current diagnosis for this admission?: Yes Plan: 10/31/2018-patient came in with hypothermia, tachypnea, tachycardia and metabolic acidosis most likely he has a sepsis blood cultures urine cultures sputum cultures are requested patient was given IV cefepime in the ER plan is to continue IV cephapirin and IV vancomycin was added. 11/01/2018-patient came in with elevated WBC count and small lesions in the bilateral upper extremities secondary to IV drug abuse white cell count came down to 13,400 and echocardiogram was negative for endocarditis presently on IV vancomycin and Zosyn plan is to continue the antibiotics. 11/02/2018-patient came in with tachycardia, tachypnea, elevated WBC count he can fevers sepsis is resolved. Blood pressure is stable. 11/03/2018-patient came in with elevated WBC count history of IV drug abuse echocardiogram was done negative for endocarditis WBC came down to normal no fevers antibiotics are discontinued. (4) Hypothermia Qualifiers: Encounter type: initial encounter Qualified Code(s): T68.XXXA - Hypothermia, initial encounter Is this a current diagnosis for this admission?: Yes Plan: 10/31/2018-patient temperature is 91 in the emergency room max wu was applied hypothermia most likely secondary to sepsis. 11/01/2018-patient came in with hypothermia temperature was 91 in the emergency room today temperature is 98.4 and hyponatremia is resolved. (5) Hyponatremia Is this a current diagnosis for this admission?: Yes Plan: 10/31/2018-patient serum sodium is 132.5, blood sugar is 288 corrected sodium most likely around 135. Hyponatremia most likely secondary to DKA. 11/01/2018-serum sodium is 129.5 today hyponatremia most likely secondary to diabetic ketoacidosis which was resolving. Plan is to closely monitor his serum sodium levels. Sugar is 274 corrected serum sodium is around 132. 11/02/2018-patient serum sodium is 131 improving. Hyponatremia most likely secondary to severe dehydration caused by uncontrolled diabetes mellitus. 11/03/2018-latest serum sodium level is around 132 plan is to repeat the labs today. Patient is asymptomatic. (6) HTN (hypertension) Is this a current diagnosis for this admission?: Yes Plan: 10/31/2018-patient admitted with hypertensive urgency latest blood pressure is 169/102 start on IV hydralazine 10 mg every 4 PRN for systolic blood pressure more than 150. 11/01/2018-patient came in with hypertensive urgency with blood pressure of 169/102 today's blood pressure is 129/84. Plan is to continue the present management. 11/02/2018-patient blood pressure today is 111/57. Stable. Hypertensive urgency resolved. 11/03/2018-patient blood pressure today is 125/63 stable. Plan is to continue the present management. (7) Tobacco use Is this a current diagnosis for this admission?: No (8) Hypokalemia Is this a current diagnosis for this admission?: Yes Plan: 11/03/2018-patient serum potassium is 3.2 patient is receiving potassium 40 mg every 8 hours. Plan is to continue the present management. - Time Time Spent with patient: 15-24 minutes Medications reviewed and adjusted accordingly: Yes Anticipated discharge: Home
[2018-11-03 15:15] LABS: URINE AMPHETAMINES SCREEN NEGATIVE; URINE BARBITURATES SCREEN NEGATIVE; URINE COCAINE SCREEN NEGATIVE; URINE MARIJUANA (THC) SCREEN NEGATIVE; URINE METHADONE SCREEN NEGATIVE; URINE PHENCYCLIDINE SCREEN NEGATIVE
[2018-11-03 15:19] LABS: URINE BENZODIAZEPINES SCREEN NEGATIVE
[2018-11-03 16:35] VITALS: BP 102/34
--- NOTE | 2018-11-04 09:38 | Left Against Medical Advice ---
Against Medical Advice Admission Date/Time: 10/31/18 11:05 Primary Care Provider: Date of Patient Emigration: 11/04/18 - Diagnosis: (1) Diabetic ketoacidosis Is this a current diagnosis for this admission?: Yes (2) Heroin abuse Is this a current diagnosis for this admission?: Yes (3) Sepsis Is this a current diagnosis for this admission?: Yes (4) Hypothermia Is this a current diagnosis for this admission?: Yes (5) Hyponatremia Is this a current diagnosis for this admission?: Yes (6) HTN (hypertension) Is this a current diagnosis for this admission?: Yes (7) Tobacco use Is this a current diagnosis for this admission?: No (8) Hypokalemia Is this a current diagnosis for this admission?: Yes - Summary: Summary: Please see Admission and Progress Notes as well. FAITH RAVI is a 18 M, who LEFT AGAINST MEDICAL ADVICE. The Patient was admitted on 10/31/18 11:05. 18 year old male history of type 1 diabetes mellitus on insulin at home, IV drug abuser brought in by family with complaints of increasing shortness of breath. The family is not sure whether he is compliant with this medication or not. Patient is not giving much information. Mother states patient is also has a IV heroin user. The work-up was done in the emergency room shows patient is in DKA with ABG pH is around 6.8 serum bicarb is less than 5 WBC count of 20,400 latest blood sugar is 288 tachycardic tachypneic and hypothermic with a temperature of 91 and medical consult was requested for admission. mother is requesting to put the patient under IVC commitment. 11/01/[id number]-bize-old male with history of type 1 diabetes mellitus on insulin, IV heroin abuser admitted with the DKA bicarb at the time of admission is less than 5 and bicarb is improved to 18 in the lab this morning he was also admitted with hyponatremia hyperglycemia and metabolic acidosis hyperkalemia all those abnormalities are resolving. He is also admitted with hypertensive urgency/emergency blood pressure is improved to 129/84. Insulin drip was discontinued and he was started on a Jell-O diet today plan is to change the blood sugar monitoring to before meals and at bedtime restart his home insulin and downgrade him to medical floor today. 11/02/[id number]-alit-old male with history of type 1 diabetes mellitus on insulin admitted with the DKA , DKA is resolved. No acute events in the last 24 hours patient was downgraded to IMCU yesterday. Serum potassium today is 3.2 potassium supplementations on board patient refused labs this morning when I went to talk to him he agreed to have labs at least one time. 11/03/[id number]-tlrh-old male with type 1 diabetes mellitus admitted with DKA resolved. Hyponatremia is resolving. Hypokalemia is resolving. He left the floor this morning and diagnosis I am getting that a car by the time security went to find him his back into the hospital. We are going to do the urine drug screen to see if he took anything outside. No acute events in the last 24 hours. Afebrile. We are going to also check his lab work today. 11/04/18-fsmb-old with history of type 1 diabetes mellitus admitted with DKA. He was also found to have hyponatremic. Hypokalemic. Hypokalemia was resolved hyponatremia is improving. Yesterday morning he went out of the hospital and came back within 10 minutes urine drug screen is positive for opiates. Later on around 7 PM yesterday night he signed AMA and left the hospital. We tried our best to convince him to stay but he refused and he understood the risks involved in leaving the hospital AGAINST MEDICAL ADVICE and verbalized response.
== END 2018-11-03 19:01 | disposition left against medical advice (07) | DRG 638 ==
LOC: ER 06:44 → EH 11:05 → ICU 13:33 → 4S 11-01 17:13 → 5 11-03 18:06
PROVIDERS: ADMIT Internal Medicine; ATTEND Internal Medicine
DX: E10.10 Type 1 diabetes mellitus with ketoacidosis without coma (principal); L02.413 Cutaneous abscess of right upper limb; E87.1 Hypo-osmolality and hyponatremia; I10 Essential (primary) hypertension; E87.6 Hypokalemia; F11.10 Opioid abuse, uncomplicated; F17.210 Nicotine dependence, cigarettes, uncomplicated; T68.XXXA Hypothermia, initial encounter
CPT/HCPCS: 36415; 71045; 80048; 80053; 80061; 80202; 80307; 81001; 82150; 82553; 82803; 82962; 83036; 83605; 83690; 83735; 84443; 84484; 85025; 85027; 85610; 87040; 87070; 87075; 87077; 87086; 87186; 87205; 93306; 96361; 96365; 99285; J0692; J1650; J1815; J3370; J3480; J3490; J7030; J7042; J7060; S0164

== ENCOUNTER → 2019-01-08 | Outpatient (CLI) | payer MEDICAID ==
[2019-01-08 10:53] LABS: ABSOLUTE BASOPHILS # (AUTO) 0.1 10^3/uL (0.0-0.2); ABSOLUTE LYMPHOCYTES (AUTO) 1.5 10^3/uL (0.5-4.7); ABSOLUTE MONOCYTES (AUTO) 0.7 10^3/uL (0.1-1.4); ABSOLUTE NEUT (AUTO) 3.2 10^3/uL (1.7-8.2); BASOPHILS % (AUTO) 1.1 % (0-2); EOSINOPHILS % (AUTO) 0.7 % (0-6); HEMATOCRIT 32.7 % (37.9-51.0); HEMOGLOBIN 10.3 g/dL (13.5-17.0); LYMPHOCYTES % (AUTO) 27.4 % (13-45); MEAN CORPUSCULAR HEMOGLOBIN 25.1 pg (27.0-33.4); MEAN CORPUSCULAR HGB CONC 31.4 g/dL (32.0-36.0); MEAN CORPUSCULAR VOLUME 80 fl (80-97); PLATELET COUNT 239 10^3/uL (150-450); RED BLOOD COUNT 4.11 10^6/uL (4.35-5.55); RED CELL DISTRIBUTION WIDTH 17.5 % (11.5-14.0); SEGMENTED NEUTROPHILS % (AUTO) 57.8 % (42-78); TOTAL CELLS COUNTED % (AUTO) 100 %; WHITE BLOOD COUNT 5.5 10^3/uL (4.0-10.5)
[2019-01-08 11:22] LABS: ALBUMIN 3.5 g/dL (3.5-5.0); ALKALINE PHOSPHATASE 146 U/L (38-126); ANION GAP 11 (5-19); ASPARTATE AMINO TRANSFERASE 506 U/L (17-59); BILIRUBIN,DIRECT 0.2 mg/dL (0.0-0.4); BILIRUBIN,TOTAL 0.4 mg/dL (0.2-1.3); BLOOD UREA NITROGEN 8 mg/dL (7-20); CALCIUM 9.1 mg/dL (8.4-10.2); CARBON DIOXIDE 28 mmol/L (22-30); CHLORIDE 98 mmol/L (98-107); CHOLESTEROL 155.46 mg/dL (0-200); POTASSIUM 4.5 mmol/L (3.6-5.0); TOTAL PROTEIN 6.3 g/dL (6.3-8.2); TRIGLYCERIDES 116 mg/dL (<150)
[2019-01-08 11:35] LABS: DIRECT LDL 59 mg/dL (<100)
[2019-01-08 11:40] LABS: ERYTHROCYTE SEDIMENTATION RATE 31 mm/hr (0-15)
[2019-01-08 11:41] LABS: FREE T3 3.55 pg/mL (2.77-5.27); FREE T4 (FREE THYROXINE) 0.88 ng/dL (0.78-2.19)
[2019-01-08 11:46] LABS: GLUCOSE 450 mg/dL (75-110)
[2019-01-08 11:55] LABS: THYROID STIMULATING HORMONE 3.33 uIU/mL (0.47-4.68)
== END ==
LOC: OD 09:18
PROVIDERS: ATTEND Internal Medicine Geriatric Medicine
DX: E10.9 Type 1 diabetes mellitus without complications (principal); R63.4 Abnormal weight loss
CPT/HCPCS: 36415; 80053; 80061; 83036; 84439; 84443; 84481; 85025; 85652

== ENCOUNTER 2019-05-10 17:00 | Emergency (ER) | payer SELFPAY ==
[2019-05-10 17:38] VITALS: BP 131/56
--- NOTE | 2019-05-10 18:02 | ER Document Report ---
HPI - HPI Time Seen by Provider: 05/10/19 17:56 Notes: Patient is a 19-year-old male with a history of insulin-dependent diabetes and drug abuse who presents complaining of nasal congestion/discharge, semi- productive cough, low-grade temperature over the past week. He is able to eat and drink without difficulty. He is urinating normally and having normal bowel movements. He denies drug allergies. No other concerns or complaints at this time. Denies any headache, neck pain, sore throat, chest pain, palpitations, syncope, shortness of breath, wheeze, dyspnea, abdominal pain, nausea/vomiting/diarrhea, urinary retention, dysuria, hematuria, or rash. - ROS Systems Reviewed and Negative: Yes All other systems reviewed and negative - REPRODUCTIVE Reproductive: DENIES: : Past Medical History - Social History Smoking Status: Unknown if Ever Smoked Family History: Reviewed & Not Pertinent, Hypertension, Other - Lupus Pulmonary Medical History: Reports: Hx Asthma Endocrine Medical History: Reports: Hx Diabetes Mellitus Type 1 Renal/ Medical History: Denies: Hx Peritoneal Dialysis Past Surgical History: Reports: Hx Abdominal Surgery - Immunizations Immunizations up to date: Yes Hx Diphtheria, Pertussis, Tetanus Vaccination: Yes Vertical Provider Document - CONSTITUTIONAL Agree With Documented VS: Yes Notes: PHYSICAL EXAMINATION: GENERAL: Well-appearing, well-nourished and in no acute distress. A&Ox4. Answers questions appropriately. Moves comfortably w/o notable distress HEAD: Atraumatic, normocephalic. EYES: Pupils equal round and reactive to light, extraocular movements intact, sclera anicteric, conjunctiva are normal. ENT: Nares patent and with clear discharge. oropharynx no erythema without exudates. No tonsilar hypertrophy without erythema or exudate. No palatine shift. Uvula midline. No tongue protrusion. No drooling, hoarseness, or airway compromise. Moist mucous membranes. No sinus tenderness. NECK: Normal range of motion, supple without lymphadenopathy. No rigidity/meningismus. LUNGS: Breath sounds clear to auscultation bilaterally and equal. No wheezes rales or rhonchi. No retractions HEART: Regular rate and rhythm without murmurs, rubs, gallops. ABDOMEN: Soft, nontender, nondistended abdomen. No guarding, no rebound. Normal bowel sounds present. No CVA tenderness bilaterally. NEUROLOGICAL: Normal speech, normal gait. PSYCH: Normal mood, normal affect. SKIN: Warm, Dry, normal turgor, no rashes or lesions noted. - INFECTION CONTROL TRAVEL OUTSIDE OF THE [place] IN LAST 30 DAYS: No Course - Re-evaluation Re-evalutation: 05/10/19 Patient is an afebrile, well-hydrated, 19-year-old male who presents to the emergency department with a cough/URI, overall suspect viral. Pt has health factors in regards to drug abuse and IDDM. Vitals are acceptable without significant tachycardia, tachypnea, or hypoxia. PE is otherwise unremarkable. He is nontoxic-appearing and is tolerating p.o. without difficulty. Lungs are clear to auscultation bilaterally. CXR unremarkable. He is beyond treatment for flu. No further labs or imaging warranted at this time. Low suspicion for any meningitis, sepsis, peritonsillar/pharyngeal abscess, respiratory compromise, Jj's, or other emergent systemic condition at this time. Patient is aware this condition can change from initial presentation and he needs to monitor symptoms closely. I will be sending nydia with zithromax due to his health risk factors. Conservative measures otherwise for symptoms. Recheck with your PCM in 3-5 days. Return to the ED with any worsening/concerning symptoms otherwise as reviewed in discharge. Patient is in agreement. - Vital Signs Vital signs: Temp Pulse Resp BP Pulse Ox 98.8 F 86 20 131/56 H 100 05/10/19 17:37 05/10/19 17:37 05/10/19 17:37 05/10/19 17:37 05/10/19 17:37 Discharge - Discharge Clinical Impression: Cough Condition: Stable Disposition: HOME, SELF-CARE Instructions: Upper Respiratory Illness ([facility]) Additional Instructions: Maintain adequate fluid intake tylenol/ibuprofen as needed alternating every 3 hours for fever/body ache over the counter cold medication as needed for symptoms Humidified air may help Wash your hands regularly Wear a mask when coughing F/u: with your PCM in 3-5 days for a recheck Return to the ED with any fever, altered mental status/behavior, chest pain, palpitations, syncope, headache, neck pain/stiffness, shortness of breath, chest pains, wheezing, drooling, trouble swallowing/breathing, abdominal pain, n/v/d, rash, or worsening/concerning symptoms otherwise. Prescriptions: Azithromycin [Zithromax 250 mg Tablet] 250 mg PO ASDIR PRN #6 tablet PRN Reason: Forms: Elevated Blood Pressure Referrals: CHANNING PEACOCK MD [Primary Care Provider] - Follow up in 3-5 days
--- NOTE | 2019-05-10 18:56 | RADIOLOGY REPORT (SQ) ---
EXAM DESCRIPTION: CHEST 2 VIEWS COMPLETED DATE/TIME: 05/10/2019 6:29 pm REASON FOR STUDY: cough COMPARISON: 11/01/[address] 07/13/2018 EXAM PARAMETERS: NUMBER OF VIEWS: two views TECHNIQUE: Digital Frontal and Lateral radiographic views of the chest acquired. RADIATION DOSE: NA LIMITATIONS: none FINDINGS: LUNGS AND PLEURA: No opacities, masses or pneumothorax. No pleural effusion. MEDIASTINUM AND HILAR STRUCTURES: 80 rounded 4.5 cm mass is suggested in the lower mediastinum, etiol ogy uncertain. HEART AND VASCULAR STRUCTURES: Heart normal size. No evidence for failure. BONES: No acute findings. HARDWARE: None in the chest. OTHER: No other significant finding. IMPRESSION: There appears to be a rounded mass in the lower mediastinum. This is seen on the prior radiographs as far back as 05/27/2015, suggesting benign etiology. TECHNICAL DOCUMENTATION: JOB ID: [id number] 2010 [employer]- All Rights Reserved Reading location - IP/workstation name: [email or web address]
== END 2019-05-10 19:29 | disposition home or self-care (01) ==
LOC: ER 17:00
DX: R05 Cough (principal); R09.81 Nasal congestion; E10.9 Type 1 diabetes mellitus without complications; Z79.4 Long term (current) use of insulin
CPT/HCPCS: 71046; 99283

== ENCOUNTER 2019-07-25 23:11 | Inpatient (IN) | payer SELFPAY ==
--- NOTE | 2019-07-26 00:12 | ER Document Report ---
ED General - General Chief Complaint: Low Blood Sugar Stated Complaint: LOW BLOOD SUGAR Time Seen by Provider: 07/25/19 23:46 Primary Care Provider: CHANNING PEACOCK MD [Primary Care Provider] - Follow up as needed TRAVEL OUTSIDE OF THE [place] IN LAST 30 DAYS: No - HPI Notes: Chief complaint: Low blood sugar and altered mental status HPI: 19-year-old type I diabetic on insulin being treated by Dr. Peacock transported here from home via EMS after girlfriend called to report that he was unresponsive. Patient took Novolin insulin around noon today and says he did not eat because he was tired and "wanted to get some extra sleep". EMS found initial blood sugar of 45. He was given some oral glucose and the sugar did not rise substantially. They subsequently gave D50 and his sugar was still in the 60s. They started D10W for transport and upon arrival to the hospital blood sugar was 79 he was still somewhat sleepy although he was following basic commands and was easily arousable. Patient was eating a sandwich when I entered the room and reported that he still felt sleepy but otherwise was doing well. He denies fever chills or vomiting. He denies any skin rashes or sores. He denies any chest pain cough or shortness of breath. He denies dysuria. - Related Data Allergies/Adverse Reactions: No Known Allergies Allergy (Verified 05/10/19 17:51) Home Medications: 70/30 Novolin Past Medical History - General Information source: Patient - Social History Smoking Status: Current Some Day Smoker Family History: Reviewed & Not Pertinent, Hypertension, Other - Lupus Patient has homicidal ideation: No Pulmonary Medical History: Reports: Hx Asthma Endocrine Medical History: Reports: Hx Diabetes Mellitus Type 1 Renal/ Medical History: Denies: Hx Peritoneal Dialysis Past Surgical History: Reports: Hx Abdominal Surgery - Immunizations Immunizations up to date: Yes Hx Diphtheria, Pertussis, Tetanus Vaccination: Yes Review of Systems - Review of Systems Notes: Constitutional: Negative for fever. HENT: Negative for sore throat. Eyes: Negative for visual changes. Cardiovascular: Negative for chest pain. Respiratory: Negative for shortness of breath. Gastrointestinal: Negative for abdominal pain, vomiting or diarrhea. Genitourinary: Negative for dysuria. Musculoskeletal: Negative for back pain. Skin: Negative for rash. Neurological: Negative for headaches, weakness or numbness. 10 point ROS negative except as marked above and in HPI. Physical Exam - Vital signs Vitals: Resp 20 07/25/19 23:21 - Notes Notes: GENERAL: Slender male appearing approximately stated age slightly sleepy but otherwise in no acute distress. SKIN: Good turgor no rashes. HEAD: Normocephalic atraumatic. EYES: PERRLA. EOMI. Conjunctivae and sclerae clear. EARS: CANALS AND TMS CLEAR. NOSE: CLEAR. MOUTH: Moist mucosa. Good dentition. No stridor or edema. No drooling. NECK: Supple. No masses or thyromegaly. No adenopathy. Carotids 2+ without bruits. No JVD. BACK: Symmetrical without tenderness. CHEST: Respirations unlabored. Breath sounds clear and symmetrical. HEART: Regular rhythm. No murmur gallop or rub. ABDOMEN: Soft nontender without masses, organomegaly or rebound. Bowel sounds normally active. No bruits. GENITALIA: Deferred. EXTREMITIES: No edema. No calf tenderness. Cap refill less than 1.5 seconds. Dorsalis pedis and posterior tibial pulses 3+ and symmetrical. NEUROLOGICAL: GCS 15. Alert and oriented x3. Fluent speech. Cranial nerves II through XII intact. Sensorimotor and cerebellar normal. Normal tone. PSYCHIATRIC: Appropriate affect. Course - Re-evaluation Re-evalutation: 07/26/19 02:48 Patient received additional D50 W push after arrival here. He is awake and alert now but still sleepy and he is not really willing to eat. Blood sugar dipped back down below 70. I placed him on a continuous infusion of 10% dextrose. Follow-up blood glucose is now 168. Case was discussed with his private attending Dr. Peacock who will admit to telemetry. - Vital Signs Vital signs: Temp Pulse Resp BP Pulse Ox 98.5 F 27 H 111/61 100 07/26/19 00:01 07/26/19 02:01 07/26/19 02:01 07/26/19 02:01 - Laboratory Result Diagrams: 07/26/19 01:23 07/26/19 01:23 Laboratory results interpreted by me: 07/26/19 07/26/19 07/26/19 01:23 01:23 01:37 WBC 10.9 H RBC 6.43 H MCV 72 L MCH 24.3 L Lymph % (Auto) 8.3 L Absolute Neuts (auto) 9.1 H Seg Neutrophils % 83.8 H Potassium 3.1 L Carbon Dioxide 19 L Creatinine 0.40 L POC Glucose 162 H Calcium 10.4 H 07/26/19 02:32 WBC RBC MCV MCH Lymph % (Auto) Absolute Neuts (auto) Seg Neutrophils % Potassium Carbon Dioxide Creatinine POC Glucose 114 H Calcium Discharge - Discharge Clinical Impression: Hypoglycemia associated with diabetes Diabetes mellitus type 1 Qualifiers: Diabetes mellitus complication status: with hypoglycemia Diabetes mellitus complication detail: with coma Qualified Code(s): E10.641 - Type 1 diabetes mellitus with hypoglycemia with coma Condition: Fair Disposition: ADMITTED INPATIENT Admitting Provider: [facility] Admitted: Telemetry Referrals: CHANNING PEACOCK MD [Primary Care Provider] - Follow up as needed
[2019-07-26] MEDS ORDERED: DEXTROSE 50%-WATER 25 GM/50 ML DISP.SYRIN IV ONE (01:14)
[2019-07-26 01:31] LABS: ABSOLUTE LYMPHOCYTES (AUTO) 0.9 10^3/uL (0.5-4.7); ABSOLUTE MONOCYTES (AUTO) 0.8 10^3/uL (0.1-1.4); ABSOLUTE NEUT (AUTO) 9.1 10^3/uL (1.7-8.2); BASOPHILS % (AUTO) 0.4 % (0-2); EOSINOPHILS % (AUTO) 0.1 % (0-6); HEMOGLOBIN 15.7 g/dL (13.5-17.0); LYMPHOCYTES % (AUTO) 8.3 % (13-45); MEAN CORPUSCULAR HEMOGLOBIN 24.3 pg (27.0-33.4); MEAN CORPUSCULAR VOLUME 72 fl (80-97); MONOCYTES % (AUTO) 7.4 % (3-13); PLATELET COUNT 323 10^3/uL (150-450); RED BLOOD COUNT 6.43 10^6/uL (4.35-5.55); RED CELL DISTRIBUTION WIDTH 13.6 % (11.5-14.0); SEGMENTED NEUTROPHILS % (AUTO) 83.8 % (42-78); TOTAL CELLS COUNTED % (AUTO) 100 %; WHITE BLOOD COUNT 10.9 10^3/uL (4.0-10.5)
[2019-07-26] MEDS ORDERED: DEXTROSE 10%-WATER 1,000 ML IV ONE (01:57)
[2019-07-26 02:43] LABS: ALBUMIN 4.5 g/dL (3.5-5.0); ALKALINE PHOSPHATASE 82 U/L (38-126); ANION GAP 13 (5-19); ASPARTATE AMINO TRANSFERASE 31 U/L (17-59); BILIRUBIN,DIRECT 0.1 mg/dL (0.0-0.4); BILIRUBIN,TOTAL 0.6 mg/dL (0.2-1.3); BLOOD UREA NITROGEN 11 mg/dL (7-20); CALCIUM 10.4 mg/dL (8.4-10.2); CARBON DIOXIDE 19 mmol/L (22-30); CHLORIDE 105 mmol/L (98-107); GLUCOSE 88 mg/dL (75-110); POTASSIUM 3.1 mmol/L (3.6-5.0); TOTAL PROTEIN 7.8 g/dL (6.3-8.2)
[2019-07-26 02:44] LABS: ALCOHOL < 10 mg/dL (NONE DETECTED)
[2019-07-26] MEDS ORDERED: POTASSIUM CHLORIDE 20 MEQ PACKET PO ONE (02:51)
[2019-07-26] MEDS ORDERED: POTASSI CL 20 MEQ/50 ML RIDER 20 MEQ/50 ML RTUPB IV ONE (02:51)
[2019-07-26 03:31] LABS: APPEARANCE,URINE CLEAR; BILIRUBIN,URINE NEGATIVE (NEGATIVE); COLOR,URINE STRAW; GLUCOSE, URINE 150 mg/dL (NEGATIVE); KETONES,URINE NEGATIVE (NEGATIVE); PROTEIN,URINE NEGATIVE (NEGATIVE); URINE SPECIFIC GRAVITY 1.004; UROBILINOGEN,URINE NEGATIVE mg/dL (<2.0)
[2019-07-26 03:47] LABS: URINE BARBITURATES SCREEN NEGATIVE; URINE BENZODIAZEPINES SCREEN NEGATIVE; URINE COCAINE SCREEN NEGATIVE; URINE MARIJUANA (THC) SCREEN NEGATIVE; URINE METHADONE SCREEN NEGATIVE; URINE PHENCYCLIDINE SCREEN NEGATIVE
[2019-07-26 03:54] LABS: URINE AMPHETAMINES SCREEN UNCONFIRMED POSITIVE
[2019-07-26] MEDS ORDERED: DEXTROSE 10%-WATER 1,000 ML IV PRN (05:07)
[2019-07-26 09:23] LABS: ANION GAP 12 (5-19); BLOOD UREA NITROGEN 9 mg/dL (7-20); CALCIUM 10.1 mg/dL (8.4-10.2); CARBON DIOXIDE 21 mmol/L (22-30); CHLORIDE 105 mmol/L (98-107)
[2019-07-26 09:29] LABS: GLUCOSE 51 mg/dL (75-110); POTASSIUM 2.9 mmol/L (3.6-5.0)
[2019-07-26] MEDS: POTASSIUM CHLORIDE 20 MEQ/50 ML RTU IV SCH ×2 (10:33→14:12)
[2019-07-26] MEDS ORDERED: GLUCAGON,HUMAN RECOMB 1 MG INJ IM PRN (12:00)
[2019-07-26] MEDS ORDERED: DEXTROSE 40% GEL 15 GM TUBE X 2 PO PRN (12:00)
[2019-07-26] MEDS ORDERED: DEXTROSE 50%-WATER SYRINGE 25 GM/50 ML DOSE IV PRN (12:00)
[2019-07-26] MEDS ORDERED: DEXTROSE 40% GEL 15 GM TUBE PO PRN (12:00)
[2019-07-26] MEDS ORDERED: DEXTROSE 50%-WATER SYRINGE 12.5 GM/25 ML DOSE IV PRN (12:00)
[2019-07-26] MEDS: ONDANSETRON HCL INJ/PF 4 MG/2 ML SDV IV PRN ×2 (12:03→16:24)
[2019-07-26] MEDS ORDERED: GLUCAGON,HUMAN RECOMB 1 MG INJ IM ONE (12:30)
--- NOTE | 2019-07-26 15:30 | PDOC H&P ---
History of Present Illness Admission Date/PCP: 07/26/19 02:55 CHANNING MADONNA Patient complains of: Low blood sugar History of Present Illness: FAITH RAVI is a 19 year old male patient known to my practice who presented to the ED via EMS due to been found unresponsive at home by his girlfriend. On site his blood glucose was reported at 45 mg/dl. He was treated with oral hypoglycemic resuscitation protocol without significant improvement necessitating initiation of IV 10% Dextrose fluid infusion.Upon arrival in the ED his initial accuchek was reported at 79 mg/dl and he was found arousable. Despite initial sign of improvement the patient continue to demonstrate recurrent hypoglycemic attacks. He denied any fever, chills, coughing, sinus congestion, headache, dizziness, dysuria, flank pain, hematuria, or urinary frequency. He denied any chest pain or difficulty with breathing. He admitted to taking his Novolin insulin but his food intake have been limited due to reported nausea. He was advised hospitalization for further evaluation and management. Past Medical History Pulmonary Medical History: Reports: Asthma Endocrine Medical History: Reports: Diabetes Mellitus Type 1 Psychiatric Medical History: Denies: Depression Social History Smoking Status: Current Some Day Smoker Frequency of Alcohol Use: None Hx Recreational Drug Use: Yes Drugs: Heroin Hx Prescription Drug Abuse: No - Advance Directive Resuscitation Status: Full Code Family History Family History: Reviewed & Not Pertinent, Hypertension, Other - Lupus Parental Family History Reviewed: Yes Children Family History Reviewed: Yes Sibling(s) Family History Reviewed.: Yes Medication/Allergy Home Medications: Insulin Lispro [Humalog Kwikpen] 0 unit SQ .PER SLIDING SCALE 07/26/19 Insulin NPH Hum/Reg Insulin Hm [Novolin 70-30 Flexpen] 60 unit SQ BID 07/26/19 Allergies/Adverse Reactions: No Known Allergies Allergy (Verified 05/10/19 17:51) Review of Systems Constitutional: ABSENT: chills, fever(s), headache(s), weight gain, weight loss Eyes: ABSENT: visual disturbances Ears: ABSENT: hearing changes Nose, Mouth, and Throat: ABSENT: headache(s), sore throat, vertigo Cardiovascular: ABSENT: chest pain, dyspnea on exertion, edema, orthropnea, palpitations Respiratory: ABSENT: cough, hemoptysis Gastrointestinal: PRESENT: nausea. ABSENT: abdominal pain, constipation, diarrhea, hematemesis, hematochezia, vomiting Genitourinary: ABSENT: difficulty urinating, dysuria, hematuria Musculoskeletal: ABSENT: joint swelling Integumentary: ABSENT: rash, wounds Neurological: ABSENT: abnormal gait, abnormal speech, confusion, dizziness, focal weakness, syncope Psychiatric: ABSENT: anxiety, depression, homidical ideation, suicidal ideation Endocrine: ABSENT: cold intolerance, heat intolerance, polydipsia, polyuria Hematologic/Lymphatic: ABSENT: easy bleeding, easy bruising, lymphadenopathy Physical Exam Vital Signs: Temp Pulse Resp BP Pulse Ox 98.4 F 78 14 145/82 H 100 07/26/19 11:05 07/26/19 11:05 07/26/19 11:05 07/26/19 11:05 07/26/19 11:05 Intake & Output 07/25/19 07/26/19 07/27/19 06:59 06:59 06:59 Intake Total 170 290 Balance 170 290 Weight 74.5 kg General appearance: PRESENT: no acute distress, well-developed, well-nourished Head exam: PRESENT: atraumatic, normocephalic Eye exam: PRESENT: conjunctiva pink, EOMI, PERRLA. ABSENT: scleral icterus Ear exam: PRESENT: normal external ear exam Mouth exam: PRESENT: moist, tongue midline Neck exam: PRESENT: full ROM. ABSENT: carotid bruit, JVD, lymphadenopathy, thyromegaly Respiratory exam: PRESENT: clear to auscultation santhosh Cardiovascular exam: PRESENT: RRR. ABSENT: diastolic murmur, rubs, systolic murmur Vascular exam: ABSENT: pallor GI/Abdominal exam: PRESENT: normal bowel sounds, soft. ABSENT: distended, guarding, mass, organolmegaly, rebound, tenderness Rectal exam: PRESENT: deferred Extremities exam: PRESENT: pedal edema Neurological exam: PRESENT: alert, awake, oriented to person, oriented to place, oriented to time, oriented to situation, CN II-XII grossly intact. ABSENT: motor sensory deficit Psychiatric exam: PRESENT: appropriate affect, normal mood. ABSENT: homicidal ideation, suicidal ideation Skin exam: PRESENT: dry, intact, warm. ABSENT: cyanosis, rash Results Laboratory Results: 07/26/19 01:23 07/26/19 08:39 07/26/19 07/26/19 07/26/19 01:23 01:23 01:23 WBC 10.9 H RBC 6.43 H Hgb 15.7 Hct 46.0 MCV 72 L MCH 24.3 L MCHC 34.0 RDW 13.6 Plt Count 323 Seg Neutrophils % 83.8 H Sodium 137.3 Potassium 3.1 L Chloride 105 Carbon Dioxide 19 L Anion Gap 13 BUN 11 Creatinine 0.40 L Est GFR ( Amer) > 60 Glucose 88 Calcium 10.4 H Magnesium 1.9 Total Bilirubin 0.6 AST 31 Alkaline Phosphatase 82 Total Protein 7.8 Albumin 4.5 Urine Color Urine Appearance Urine pH Ur Specific [place] Urine Protein Urine Glucose (UA) Urine Ketones Urine Blood Urine RBC (Auto) 07/26/19 07/26/19 07/26/19 03:12 04:37 08:39 WBC RBC Hgb Hct MCV MCH MCHC RDW Plt Count Seg Neutrophils % Sodium 137.9 Potassium 2.9 L* Chloride 105 Carbon Dioxide 21 L Anion Gap 12 BUN 9 Creatinine 0.46 L Est GFR ( Amer) > 60 Glucose 51 L Calcium 10.1 Magnesium 1.6 Total Bilirubin AST Alkaline Phosphatase Total Protein Albumin Urine Color STRAW Urine Appearance CLEAR Urine pH 6.0 Ur Specific [place] 1.004 Urine Protein NEGATIVE Urine Glucose (UA) 150 H Urine Ketones NEGATIVE Urine Blood NEGATIVE Urine RBC (Auto) 0 07/26/19 08:39 WBC RBC Hgb Hct MCV MCH MCHC RDW Plt Count Seg Neutrophils % Sodium Potassium Chloride Carbon Dioxide Anion Gap BUN Creatinine Est GFR ( Amer) Glucose Calcium Magnesium 1.7 Total Bilirubin AST Alkaline Phosphatase Total Protein Albumin Urine Color Urine Appearance Urine pH Ur Specific [place] Urine Protein Urine Glucose (UA) Urine Ketones Urine Blood Urine RBC (Auto) Assessment & Plan - Diagnosis (1) Hypoglycemia associated with diabetes Is this a current diagnosis for this admission?: Yes Plan: See admitting attending physician orders for details about care plan. (2) Diabetes mellitus type 1 Qualifiers: Diabetes mellitus complication status: with hypoglycemia Diabetes mellitus complication detail: with coma Qualified Code(s): E10.641 - Type 1 diabetes mellitus with hypoglycemia with coma Is this a current diagnosis for this admission?: Yes Plan: See admitting attending physician orders for details about care plan. (3) Hypokalemia Is this a current diagnosis for this admission?: Yes Plan: See admitting attending physician orders for details about care plan. (4) HTN (hypertension) Qualifiers: Hypertension type: essential hypertension Qualified Code(s): I10 - Essential (primary) hypertension Is this a current diagnosis for this admission?: Yes Plan: See admitting attending physician orders for details about care plan. - Time Time Spent: 50 to 70 Minutes Medications reviewed and adjusted accordingly: Yes Anticipated discharge: Home Within: Other - Inpatient Certification Based on my medical assessment, after consideration of the patient's comorbidities, presenting symptoms, or acuity I expect that the services needed warrant INPATIENT care.: Yes I certify that my determination is in accordance with my understanding of Medicare's requirements for reasonable and necessary INPATIENT services [42 CFR 412.3e].: Yes Medical Necessity: Significant Comorbidiites Make Outpatient Treatment Too Risky, Need Close Monitoring Due to Risk of Patient Decompensation, Need For IV Fluids, Need For Continuous Telemetry Monitoring, Risk of Complication if Not Cared For in Hospital, Risk of Diagnosis Which Will Require Inpatient Eval/Care/Monitoring Post Hospital Care: D/C Recreational Director Documentation - Plan Summary Plan Summary: See admitting attending physician orders for details about care plan.
[2019-07-26 16:31] VITALS: BP 113/69
--- NOTE | 2019-07-26 16:48 | RADIOLOGY REPORT (SQ) ---
EXAM DESCRIPTION: CHEST 2 VIEWS IMAGES COMPLETED DATE/TIME: 07/26/2019 4:18 pm REASON FOR STUDY: Hypoglycemia, Altered mental status COMPARISON: 05/10/2019, 07/13/2018 EXAM PARAMETERS: NUMBER OF VIEWS: two views TECHNIQUE: Digital Frontal and Lateral radiographic views of the chest acquired. RADIATION DOSE: NA LIMITATIONS: none FINDINGS: LUNGS AND PLEURA: No opacities, masses or pneumothorax. No pleural effusion. MEDIASTINUM AND HILAR STRUCTURES: None there is ovoid mass in the lower mediastinum. HEART AND VASCULAR STRUCTURES: Heart normal size. No evidence for failure. BONES: No acute findings. HARDWARE: None in the chest. OTHER: No other significant finding. IMPRESSION: 1. No evidence of a intrathoracic abnormality. 2. 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 TECHNICAL DOCUMENTATION: JOB ID: [id number] 2010 [employer]- All Rights Reserved Reading location - IP/workstation name: [email or web address]
--- NOTE | 2019-07-26 17:22 | Left Against Medical Advice ---
Against Medical Advice Admission Date/Time: 07/26/19 02:55 Primary Care Provider: CHANNING PEACOCK Date of Patient Emigration: 07/26/19 - Diagnosis: (1) Hypoglycemia associated with diabetes Is this a current diagnosis for this admission?: Yes (2) Diabetes mellitus type 1 Is this a current diagnosis for this admission?: Yes (3) Hypokalemia Is this a current diagnosis for this admission?: Yes (4) HTN (hypertension) Is this a current diagnosis for this admission?: Yes - Summary: Summary: Please see Admission and Progress Notes as well. FAITH RAVI is a 19 M, who LEFT AGAINST MEDICAL ADVICE. The Patient was admitted on 07/26/19 02:55. patient was admitted for severe hypoglycemia. While in the hospital he had recurrent episodes of same that was and continue to be treated at the time he signed out against medical advise. Also, there was concern about his associated hypokalemia.. Patient signed out against medical advise with full understanding of the risk associated with his condition including recurrent hypoglycemic attacks and electrolyte derangement. In view of his action, I am dissociating from this patient. I will provide medical service need for the next 30 days for him to establish with another doctor. If he needs any hospitalization during t his period he will be admitted to the hospitalist program. If he needs no hospital service, I will provide office visit evaluation during this period. I will send him a registered mail to this effect on 07/29/2019. It is may hope that he will seek medical care for his morbidities, he is a high risk of poor outcomes.
[2019-07-29 09:24] LABS: AMPHETAMINE CONFIRMATION UR Positive (.)
== END 2019-07-26 17:28 | disposition left against medical advice (07) | DRG 639 ==
LOC: ER 23:11 → EH 07-26 02:55 → 4N 07-26 03:51
PROVIDERS: ADMIT Internal Medicine Geriatric Medicine; ATTEND Internal Medicine Geriatric Medicine
DX: E10.641 Type 1 diabetes mellitus with hypoglycemia with coma (principal); E87.6 Hypokalemia; I10 Essential (primary) hypertension; F17.210 Nicotine dependence, cigarettes, uncomplicated
CPT/HCPCS: 36415; 71046; 80053; 80307; 80361; 81001; 82962; 83036; 83735; 85025; 96361; 96374; 99285; G0480; J1610; J2405; J3480; J3490

== ENCOUNTER 2019-08-04 02:19 | Emergency (ER) | payer SELFPAY ==
[2019-08-04 03:25] LABS: ABSOLUTE BASOPHILS # (AUTO) 0.1 10^3/uL (0.0-0.2); ABSOLUTE LYMPHOCYTES (AUTO) 1.3 10^3/uL (0.5-4.7); ABSOLUTE MONOCYTES (AUTO) 0.5 10^3/uL (0.1-1.4); ABSOLUTE NEUT (AUTO) 12.6 10^3/uL (1.7-8.2); BASOPHILS % (AUTO) 0.5 % (0-2); HEMATOCRIT 49.3 % (37.9-51.0); HEMOGLOBIN 16.4 g/dL (13.5-17.0); LYMPHOCYTES % (AUTO) 9.2 % (13-45); MEAN CORPUSCULAR HEMOGLOBIN 24.2 pg (27.0-33.4); MEAN CORPUSCULAR HGB CONC 33.3 g/dL (32.0-36.0); MEAN CORPUSCULAR VOLUME 73 fl (80-97); MONOCYTES % (AUTO) 3.8 % (3-13); PLATELET COUNT 462 10^3/uL (150-450); RED BLOOD COUNT 6.78 10^6/uL (4.35-5.55); RED CELL DISTRIBUTION WIDTH 13.6 % (11.5-14.0); SEGMENTED NEUTROPHILS % (AUTO) 86.5 % (42-78); TOTAL CELLS COUNTED % (AUTO) 100 %; WHITE BLOOD COUNT 14.5 10^3/uL (4.0-10.5)
[2019-08-04 03:45] LABS: ALBUMIN 5.3 g/dL (3.5-5.0); ALKALINE PHOSPHATASE 128 U/L (38-126); ASPARTATE AMINO TRANSFERASE 37 U/L (17-59); BILIRUBIN,TOTAL 0.9 mg/dL (0.2-1.3); BLOOD UREA NITROGEN 23 mg/dL (7-20); CALCIUM 11.2 mg/dL (8.4-10.2); GLUCOSE 94 mg/dL (75-110); POTASSIUM 4.3 mmol/L (3.6-5.0); TOTAL PROTEIN 9.1 g/dL (6.3-8.2)
[2019-08-04 03:50] LABS: CARBON DIOXIDE 18 mmol/L (22-30); CHLORIDE 102 mmol/L (98-107)
[2019-08-04 03:54] LABS: ANION GAP 21 (5-19)
[2019-08-04] MEDS ORDERED: RINGERS SOLUTION,LACTATED 1,000 ML IV ONE ×2 (04:07→06:43)
[2019-08-04] MEDS ORDERED: ONDANSETRON HCL INJ/PF 4 MG/2 ML SDV IV ONE (04:08)
--- NOTE | 2019-08-04 04:10 | ER Document Report ---
ED General - General Mode of Arrival: Medic Information source: Patient, Transfer Record TRAVEL OUTSIDE OF THE [place] IN LAST 30 DAYS: No - HPI Onset: This morning Onset/Duration: Gradual Quality of pain: No pain Associated symptoms: Nausea, Vomiting. denies: Nonproductive cough, Productive cough, Fever Exacerbated by: Denies Relieved by: Denies Similar symptoms previously: Yes Recently seen / treated by doctor: No <SHANTI WINN - Last Filed: 08/04/19 08:40> <ELODIA HENRY - Last Filed: 08/04/19 12:50> - General Chief Complaint: Nausea/Vomiting Stated Complaint: LOW SUGAR Time Seen by Provider: 08/04/19 03:49 Primary Care Provider: CHANNING PEACOCK MD [Primary Care Provider] - Follow up as needed Notes: Patient presents with complaints of nausea and vomiting. Patient states he vomited 4 times at home. Patient denies any fever chest pain or abdominal pain. Patient denies any urinary symptoms. Patient states that his blood sugar was low which prompted him to come in. Patient's Accu-Chek per EMS was 78 and they gave him some dextrose. Patient is an insulin-dependent diabetic and has been compliant with his medications. Patient drowsy but is able to answer questions appropriately. Patient denies any substance abuse. (SHANTI WINN) - Related Data Allergies/Adverse Reactions: No Known Allergies Allergy (Verified 05/10/19 17:51) Past Medical History - General Information source: Patient - Social History Smoking Status: Current Some Day Smoker Frequency of alcohol use: None Drug Abuse: Heroin, Methamphetamine Lives with: Family Family History: Reviewed & Not Pertinent, Hypertension, Other - Lupus Patient has homicidal ideation: No Pulmonary Medical History: Reports: Hx Asthma Endocrine Medical History: Reports: Hx Diabetes Mellitus Type 1 Renal/ Medical History: Denies: Hx Peritoneal Dialysis Psychiatric Medical History: Denies: Hx Depression Past Surgical History: Reports: Hx Abdominal Surgery - Immunizations Immunizations up to date: Yes Hx Diphtheria, Pertussis, Tetanus Vaccination: Yes <SHANTI WINN - Last Filed: 08/04/19 08:40> Review of Systems - Review of Systems Constitutional: No symptoms reported. denies: Fever EENT: No symptoms reported Cardiovascular: No symptoms reported. denies: Chest pain Respiratory: No symptoms reported. denies: Cough, Short of breath Gastrointestinal: Nausea, Vomiting. denies: Abdominal pain, Diarrhea Genitourinary: No symptoms reported. denies: Dysuria Male Genitourinary: No symptoms reported Musculoskeletal: No symptoms reported Skin: No symptoms reported Hematologic/Lymphatic: No symptoms reported Neurological/Psychological: No symptoms reported <SHANTI WINN - Last Filed: 08/04/19 08:40> Physical Exam - General General appearance: Alert In distress: None - HEENT Head: Normocephalic, Atraumatic Eyes: Normal Conjunctiva: Normal Nasal: Normal Mouth/Lips: Normal Mucous membranes: Normal Neck: Normal, Supple. No: Lymphadenopathy - Respiratory Respiratory status: No respiratory distress Chest status: Nontender Breath sounds: Normal. No: Rales, Rhonchi, Stridor, Wheezing Chest palpation: Normal - Cardiovascular Rhythm: Regular, Tachycardia Heart sounds: S1 appreciated, S2 appreciated - Abdominal Inspection: Normal Distension: No distension Bowel sounds: Normal Tenderness: Nontender Organomegaly: No organomegaly - Back Back: Normal, Nontender - Extremities General upper extremity: Normal inspection, Normal ROM General lower extremity: Normal inspection, Normal ROM - Neurological Neuro grossly intact: Yes [place] Coma Scale Eye Opening: Spontaneous [place] Coma Scale Verbal: Oriented [place] Coma Scale Motor: Obeys Commands [place] Coma Scale Total: 15 - Psychological Associated symptoms: Normal affect, Normal mood - Skin Skin Temperature: Warm Skin Moisture: Dry Skin Color: Normal <SHANTI WINN - Last Filed: 08/04/19 08:40> - Vital signs Vitals: Temp 98 F 08/04/19 02:19 Course - Laboratory Result Diagrams: 08/04/19 03:04 08/04/19 03:04 <PACHEYENNERAULKASHMIR - Last Filed: 08/04/19 08:40> - Laboratory Result Diagrams: 08/04/19 03:04 08/04/19 03:04 <ELODIA HENRY - Last Filed: 08/04/19 12:50> - Re-evaluation Re-evalutation: 08/04/19 05:19 Patient sleeping, arouses to voice. Vital signs stable. Patient denies nausea at this time. Patient states that he did keep oral fluids down. 08/04/19 07:00 Patient's UDS positive for opiates and amphetamines. Patient does have a previous history of IV drug use and methamphetamine abuse. Patient continues to deny any use of drugs. Patient's vital signs stable. Patient continues drowsy although does arouse with voice and tactile stimulation. 08/04/19 08:40 Report and handoff given to Elodia Henry NP (SHANTI WINN) 08/04/19 12:50 Patient much more awake and alert. He is sitting up eating lunch. His Accu- Cheks have been within normal limits. Patient will be discharged home at this time. (ELODIA HENRY) - Vital Signs Vital signs: Temp Pulse Resp BP Pulse Ox 99.2 F 109 H 20 145/70 H 100 08/04/19 11:03 08/04/19 02:51 08/04/19 12:00 08/04/19 12:00 08/04/19 12:00 - Laboratory Laboratory results interpreted by me: 08/04/19 08/04/19 08/04/19 03:04 03:04 04:12 WBC 14.5 H RBC 6.78 H MCV 73 L MCH 24.2 L Plt Count 462 H Lymph % (Auto) 9.2 L Absolute Neuts (auto) 12.6 H Seg Neutrophils % 86.5 H VBG pH 7.43 H VBG pCO2 25.5 L VBG HCO3 16.4 L Carbon Dioxide 18 L Anion Gap 21 H BUN 23 H POC Glucose Calcium 11.2 H Alkaline Phosphatase 128 H Total Protein 9.1 H Albumin 5.3 H Urine Protein Urine Glucose (UA) Urine Ketones Urine Blood Urine Bilirubin Urine Urobilinogen 08/04/19 08/04/19 06:00 10:59 WBC RBC MCV MCH Plt Count Lymph % (Auto) Absolute Neuts (auto) Seg Neutrophils % VBG pH VBG pCO2 VBG HCO3 Carbon Dioxide Anion Gap BUN POC Glucose 131 H Calcium Alkaline Phosphatase Total Protein Albumin Urine Protein >=500 H Urine Glucose (UA) >=500 H Urine Ketones 80 H Urine Blood SMALL H Urine Bilirubin MODERATE H Urine Urobilinogen 4.0 H 08/04/19 07:38 Labs- Entire Visit 08/04/19 08/04/19 08/04/19 02:25 03:04 03:04 WBC 14.5 H RBC 6.78 H Hgb 16.4 Hct 49.3 MCV 73 L MCH 24.2 L MCHC 33.3 RDW 13.6 Plt Count 462 H Lymph % (Auto) 9.2 L [place] % (Auto) 3.8 Eos % (Auto) 0.0 Baso % (Auto) 0.5 Absolute Neuts (auto) 12.6 H Absolute Lymphs (auto) 1.3 Absolute Monos (auto) 0.5 Absolute Eos (auto) 0.0 Absolute Basos (auto) 0.1 Seg Neutrophils % 86.5 H VBG pH VBG pCO2 VBG HCO3 VBG Base Excess Sodium 140.6 Potassium 4.3 Chloride 102 Carbon Dioxide 18 L Anion Gap 21 H BUN 23 H Creatinine 0.79 Est GFR ( Amer) > 60 Est GFR (MDRD) Non-Af > 60 Glucose 94 POC Glucose 96 Lactic Acid Calcium 11.2 H Total Bilirubin 0.9 Direct Bilirubin 0.0 Neonat Total Bilirubin Not Reportable Neonat Direct Bilirubin Not Reportable Neonat Indirect Bili Not Reportable AST 37 ALT 36 Alkaline Phosphatase 128 H Total Protein 9.1 H Albumin 5.3 H Urine Color Urine Appearance Urine pH Ur Specific [place] Urine Protein Urine Glucose (UA) Urine Ketones Urine Blood Urine Nitrite Urine Bilirubin Urine Urobilinogen Ur Leukocyte Esterase Urine WBC (Auto) Urine RBC (Auto) U Hyaline Cast (Auto) Squamous Epi Cells Auto Urine Mucus (Auto) Urine Ascorbic Acid Urine Opiates Screen Urine Methadone Screen Ur Barbiturates Screen Ur Phencyclidine Scrn Ur Amphetamines Screen U Benzodiazepines Scrn Urine Cocaine Screen U Marijuana (THC) Screen 08/04/19 08/04/19 08/04/19 03:04 04:12 05:51 WBC RBC Hgb Hct MCV MCH MCHC RDW Plt Count Lymph % (Auto) [place] % (Auto) Eos % (Auto) Baso % (Auto) Absolute Neuts (auto) Absolute Lymphs (auto) Absolute Monos (auto) Absolute Eos (auto) Absolute Basos (auto) Seg Neutrophils % VBG pH 7.43 H VBG pCO2 25.5 L VBG HCO3 16.4 L VBG Base Excess -5.7 Sodium Potassium Chloride Carbon Dioxide Anion Gap BUN Creatinine Est GFR ( Amer) Est GFR (MDRD) Non-Af Glucose POC Glucose 89 Lactic Acid 1.2 Calcium Total Bilirubin Direct Bilirubin Neonat Total Bilirubin Neonat Direct Bilirubin Neonat Indirect Bili AST ALT Alkaline Phosphatase Total Protein Albumin Urine Color Urine Appearance Urine pH Ur Specific [place] Urine Protein Urine Glucose (UA) Urine Ketones Urine Blood Urine Nitrite Urine Bilirubin Urine Urobilinogen Ur Leukocyte Esterase Urine WBC (Auto) Urine RBC (Auto) U Hyaline Cast (Auto) Squamous Epi Cells Auto Urine Mucus (Auto) Urine Ascorbic Acid Urine Opiates Screen Urine Methadone Screen Ur Barbiturates Screen Ur Phencyclidine Scrn Ur Amphetamines Screen U Benzodiazepines Scrn Urine Cocaine Screen U Marijuana (THC) Screen 08/04/19 08/04/19 06:00 06:00 WBC RBC Hgb Hct MCV MCH MCHC RDW Plt Count Lymph % (Auto) [place] % (Auto) Eos % (Auto) Baso % (Auto) Absolute Neuts (auto) Absolute Lymphs (auto) Absolute Monos (auto) Absolute Eos (auto) Absolute Basos (auto) Seg Neutrophils % VBG pH VBG pCO2 VBG HCO3 VBG Base Excess Sodium Potassium Chloride Carbon Dioxide Anion Gap BUN Creatinine Est GFR ( Amer) Est GFR (MDRD) Non-Af Glucose POC Glucose Lactic Acid Calcium Total Bilirubin Direct Bilirubin Neonat Total Bilirubin Neonat Direct Bilirubin Neonat Indirect Bili AST ALT Alkaline Phosphatase Total Protein Albumin Urine Color DARK YELLOW Urine Appearance SLIGHTLY-CLOUDY Urine pH 6.0 Ur Specific [place] 1.027 Urine Protein >=500 H Urine Glucose (UA) >=500 H Urine Ketones 80 H Urine Blood SMALL H Urine Nitrite NEGATIVE Urine Bilirubin MODERATE H Urine Urobilinogen 4.0 H Ur Leukocyte Esterase NEGATIVE Urine WBC (Auto) 2 Urine RBC (Auto) 1 U Hyaline Cast (Auto) 90 Squamous Epi Cells Auto 1 Urine Mucus (Auto) MANY Urine Ascorbic Acid NEGATIVE Urine Opiates Screen UNCONFIRMED POSITIVE Urine Methadone Screen NEGATIVE Ur Barbiturates Screen NEGATIVE Ur Phencyclidine Scrn NEGATIVE Ur Amphetamines Screen U Benzodiazepines Scrn NEGATIVE Urine Cocaine Screen NEGATIVE U Marijuana (THC) Screen NEGATIVE (SHANTI WINN) Discharge <SHANTI WINN - Last Filed: 08/04/19 08:40> <ELODIA HENRY - Last Filed: 08/04/19 12:50> - Discharge Clinical Impression: Substance abuse Nausea and vomiting Qualifiers: Vomiting type: unspecified Vomiting Intractability: unspecified Qualified Code(s): R11.2 - Nausea with vomiting, unspecified Condition: Stable Disposition: HOME, SELF-CARE Additional Instructions: You were seen in the emergency department after an episode of hypoglycemia. Please follow-up with your primary care provider. Please continue to take any and all medications as prescribed by your primary care. Return to the emergency department with any new or life-threatening concerns. Referrals: CHANNING PEACOCK MD [Primary Care Provider] - Follow up as needed
[2019-08-04 04:27] LABS: VENOUS BLOOD BASE EXCESS -5.7 mmol/L; VENOUS BLOOD HCO3 16.4 mmol/L (20-32); VENOUS BLOOD PCO2 25.5 mmHg (35-63); VENOUS BLOOD PH 7.43 (7.30-7.42)
[2019-08-04 06:20] LABS: APPEARANCE,URINE SLIGHTLY-CLOUDY; BILIRUBIN,URINE MODERATE (NEGATIVE); COLOR,URINE DARK YELLOW; GLUCOSE, URINE >=500 mg/dL (NEGATIVE); KETONES,URINE 80 mg/dL (NEGATIVE); LEUKOCYTE ESTERASE,URINE NEGATIVE (NEGATIVE); NITRITE,URINE NEGATIVE (NEGATIVE); PROTEIN,URINE >=500 mg/dL (NEGATIVE); URINE SPECIFIC GRAVITY 1.027
[2019-08-04 06:35] LABS: URINE BARBITURATES SCREEN NEGATIVE; URINE BENZODIAZEPINES SCREEN NEGATIVE; URINE COCAINE SCREEN NEGATIVE; URINE MARIJUANA (THC) SCREEN NEGATIVE; URINE METHADONE SCREEN NEGATIVE; URINE PHENCYCLIDINE SCREEN NEGATIVE
[2019-08-04] MEDS ORDERED: DEXTROSE 5%-NORMAL SALINE 1,000 ML IV ONE (06:44)
--- NOTE | 2019-08-04 09:58 | EKG REPORT ---
SEVERITY:- ABNORMAL ECG - SINUS TACHYCARDIA RIGHT ATRIAL ABNORMALITY ABNORMAL T, CONSIDER ISCHEMIA, ANTERIOR LEADS : Confirmed by: Marco Forrester MD 04-Aug-2019 09:57:27
[2019-08-04 12:59] VITALS: BP 143/69
== END 2019-08-04 12:59 | disposition home or self-care (01) ==
LOC: ER 02:19
DX: F19.10 Other psychoactive substance abuse, uncomplicated (principal); R11.2 Nausea with vomiting, unspecified; F17.200 Nicotine dependence, unspecified, uncomplicated; E10.9 Type 1 diabetes mellitus without complications; Z79.4 Long term (current) use of insulin
CPT/HCPCS: 93005; 99285; 96361; 96374; 36415; 87040; 82962; 83605; 85025; 87077; 80053; 81001; 80307; 82803; 87150 ×26; 93010; J2405; J7042; J7120

== ENCOUNTER 2019-09-25 03:23 | Inpatient (IN) | payer SELFPAY ==
[2019-09-25] MEDS ORDERED: NORMAL SALINE 1000 ML 1,000 ML IV ONE ×2 (03:44→05:13)
--- NOTE | 2019-09-25 04:09 | ER Document Report ---
ED General - General Chief Complaint: High Blood Sugar Stated Complaint: BLOOD SUGAR ISSUE,DIFFICULTY BREATHING Time Seen by Provider: 09/25/19 04:06 Primary Care Provider: CHANNING PEACOCK MD [Primary Care Provider] - Follow up as needed Mode of Arrival: Ambulatory Information source: Patient TRAVEL OUTSIDE OF THE [place] IN LAST 30 DAYS: No - HPI Onset: Other - over the last 12-24 hours Onset/Duration: Gradual Quality of pain: Achy, Cramping Severity: Moderate Pain Level: 4 Associated symptoms: Nausea, Vomiting, Other - Abdomina pain Exacerbated by: Denies Relieved by: Denies Similar symptoms previously: Yes - when he has been in DKA Recently seen / treated by doctor: Yes - patient was seen in this ER in July for Hypoglycemia Notes: 19 year old male smoker with a history of Type 1 DM and Asthma here for abdominal pains, nausea, vomiting, and high blood sugars in the setting of being without his insulin for the past 3 days. The patient says he went to his brothers and forgot his insulin. The patient denies fevers, chills, sweats, diarrhea, cough, congestion, sore throat, urinary symptoms. - Related Data Allergies/Adverse Reactions: No Known Allergies Allergy (Verified 09/25/19 03:38) Past Medical History - General Information source: Patient - Social History Smoking Status: Current Every Day Smoker Frequency of alcohol use: None Drug Abuse: None Family History: Reviewed & Not Pertinent, Hypertension, Other - Lupus Patient has homicidal ideation: No Pulmonary Medical History: Reports: Hx Asthma Endocrine Medical History: Reports: Hx Diabetes Mellitus Type 1 Renal/ Medical History: Denies: Hx Peritoneal Dialysis Psychiatric Medical History: Denies: Hx Depression Past Surgical History: Reports: Hx Abdominal Surgery - Immunizations Immunizations up to date: Yes Hx Diphtheria, Pertussis, Tetanus Vaccination: Yes Review of Systems - Review of Systems Constitutional: Other - high blood sugars EENT: No symptoms reported Cardiovascular: No symptoms reported Respiratory: No symptoms reported Gastrointestinal: Abdominal pain, Nausea, Vomiting Genitourinary: No symptoms reported Male Genitourinary: No symptoms reported Musculoskeletal: No symptoms reported Skin: No symptoms reported Hematologic/Lymphatic: No symptoms reported Neurological/Psychological: No symptoms reported -: Yes All other systems reviewed and negative Physical Exam - Vital signs Vitals: Pulse Resp BP Pulse Ox 83 21 H 152/53 H 100 09/25/19 03:33 09/25/19 03:33 09/25/19 03:33 09/25/19 03:33 - Notes Notes: GENERAL: Well-appearing, well-nourished and in no acute distress. HEAD: Atraumatic, normocephalic. EYES: Pupils equal round and reactive to light, extraocular movements intact, sclera anicteric, conjunctiva are normal. ENT: External ears normal, nares patent, oropharynx clear without exudates. Moist mucous membranes. NECK: Normal range of motion, supple without lymphadenopathy or JVD. LUNGS: Breath sounds clear to auscultation bilaterally and equal. No wheezes rales or rhonchi. HEART: Regular rate and rhythm without murmurs, rubs or gallops. ABDOMEN: Soft, mild diffuse abdominal tenderness, normoactive bowel sounds. No guarding, no rebound. No masses appreciated. EXTREMITIES: Normal range of motion, no pitting or edema. No clubbing or cyanosis. NEUROLOGICAL: Cranial nerves II through XII grossly intact. Normal speech, normal gait. PSYCH: Normal mood, normal affect. SKIN: Warm, Dry, normal turgor, no rashes or lesions noted. Course - Re-evaluation Re-evalutation: 09/25/19 05:00 The patient has not been taking insulin for several days and he is now in DKA. Patient was given IV fluids and an insulin drip was started. The patient used to see Dr. Barahona for primary care but Dr. Peacock informed me that he has fired the patient from his practice. The Hospitalist service was therefore called and they admitted him to [facility]. The patient has an elevated K on his chemistry but he has no peaked T waves on his EKG. This level will come down with fluids and insulin. 09/25/19 05:13 Critical care time was spent evaluating the patient, speaking with his former PCP, speaking with the hospitalist, and reassessing the patient. 09/25/19 05:15 - Vital Signs Vital signs: Temp Pulse Resp BP Pulse Ox 98.2 F 83 26 H 125/38 L 100 09/25/19 04:10 09/25/19 03:33 09/25/19 04:10 09/25/19 04:10 09/25/19 04:10 - Laboratory Result Diagrams: 09/25/19 03:56 09/25/19 03:56 Laboratory results interpreted by me: 09/25/19 09/25/19 03:56 03:56 WBC 15.3 H Hgb 13.4 L MCH 24.6 L MCHC 30.2 L RDW 16.0 H Seg Neuts % (Manual) 91 H Band Neutrophils % 2 L Lymphocytes % (Manual) 5 L Monocytes % (Manual) 2 L Abs Neuts (Manual) 14.2 H Sodium 132.4 L Potassium 6.5 H* Carbon Dioxide < 5 L* Glucose 522 H* ALT 52 H Alkaline Phosphatase 140 H - EKG Interpretation by Me EKG shows normal: Sinus rhythm, [place], Intervals, QRS Complexes, ST-T Waves Rate: Normal Rhythm: NSR Critical Care Note - Critical Care Note Total time excluding time spent on procedures (mins): 31 Discharge - Discharge Clinical Impression: Diabetic ketoacidosis Qualifiers: Diabetes mellitus type: type 1 Diabetes mellitus complication detail: without coma Qualified Code(s): E10.10 - Type 1 diabetes mellitus with ketoacidosis without coma Condition: Serious Disposition: ADMITTED INPATIENT Admitting Provider: Leia (Hospitalist) Unit Admitted: IMCU Referrals: CHANNING PEACOCK MD [Primary Care Provider] - Follow up as needed
[2019-09-25 04:16] LABS: HEMATOCRIT 44.5 % (37.9-51.0); HEMOGLOBIN 13.4 g/dL (13.5-17.0); MEAN CORPUSCULAR HEMOGLOBIN 24.6 pg (27.0-33.4); MEAN CORPUSCULAR HGB CONC 30.2 g/dL (32.0-36.0); MEAN CORPUSCULAR VOLUME 81 fl (80-97); PLATELET COUNT 349 10^3/uL (150-450); RED BLOOD COUNT 5.46 10^6/uL (4.35-5.55); WHITE BLOOD COUNT 15.3 10^3/uL (4.0-10.5)
[2019-09-25] MEDS ORDERED: ONDANSETRON HCL INJ/PF 4 MG/2 ML SDV IV ONE (04:18)
[2019-09-25 04:23] LABS: ALBUMIN 4.2 g/dL (3.5-5.0); ALKALINE PHOSPHATASE 140 U/L (38-126); ASPARTATE AMINO TRANSFERASE 45 U/L (17-59); BILIRUBIN,DIRECT 0.1 mg/dL (0.0-0.4); BILIRUBIN,TOTAL 0.5 mg/dL (0.2-1.3); BLOOD UREA NITROGEN 11 mg/dL (7-20); CALCIUM 8.5 mg/dL (8.4-10.2); CHLORIDE 104 mmol/L (98-107); TOTAL PROTEIN 7.2 g/dL (6.3-8.2)
[2019-09-25 04:34] LABS: GLUCOSE 522 mg/dL (75-110); POTASSIUM 6.5 mmol/L (3.6-5.0)
[2019-09-25 04:35] LABS: CARBON DIOXIDE < 5 mmol/L (22-30)
[2019-09-25] MEDS ORDERED: DEXTROSE 40% GEL 15 GM TUBE PO PRN ×2 (04:44)
[2019-09-25] MEDS ORDERED: NORMAL SALINE 100 ML with INSULIN REGULAR, HUMAN 100 UNIT IV PRN ×2 (04:44)
[2019-09-25] MEDS ORDERED: GLUCAGON,HUMAN RECOMB 1 MG INJ IM PRN (04:44)
[2019-09-25] MEDS ORDERED: DEXTROSE 50%-WATER 25 GM/50 ML DISP.SYRIN IV PRN ×2 (04:44)
[2019-09-25 04:47] LABS: ABSOLUTE LYMPHOCYTES# (MANUAL) 0.8 10^3/uL (0.5-4.7); ABSOLUTE MONOCYTES # (MANUAL) 0.3 10^3/uL (0.1-1.4); BAND NEUTROPHILS % (MANUAL) 2 % (3-5); BASOPHILS % (MANUAL) 0 % (0-2); EOSINOPHILS % (MANUAL) 0 % (0-6); LYMPHOCYTES % (MANUAL) 5 % (13-45); MONOCYTES % (MANUAL) 2 % (3-13); SEGMENTED NEUTROPHILS % (MAN) 91 % (42-78); TOTAL CELLS COUNTED 100
[2019-09-25 04:48] LABS: ANISOCYTOSIS 1+; TOXIC VACUOLATION PRESENT
[2019-09-25 04:50] LABS: TEAR DROP CELLS SLIGHT; TOXIC GRANULATION SLIGHT
[2019-09-25 04:51] LABS: PLATELET COMMENT ADEQUATE
[2019-09-25] MEDS ORDERED: NORMAL SALINE 1000 ML 1,000 ML IV PRN ×2 (05:09→09:26)
[2019-09-25] MEDS ORDERED: ONDANSETRON HCL INJ/PF 4 MG/2 ML SDV IV PRN (05:10)
[2019-09-25] MEDS ORDERED: OXYCODONE-ACETAMINOPHEN 5-325 MG TABLET PO PRN (05:10)
[2019-09-25] MEDS ORDERED: PROMETHAZINE HCL INJ 25 MG/1 ML VIAL IV PRN (05:10)
[2019-09-25] MEDS ORDERED: IPRATROPIUM/ALBUTEROL 0.5-2.5 MG/3 ML AMPUL NEB PRN (05:10)
[2019-09-25] MEDS ORDERED: ACETAMINOPHEN 325 MG TABLET PO PRN (05:10)
[2019-09-25] MEDS ORDERED: MAGNESIUM HYDROXIDE SUSP 30 ML UDCUP PO PRN (05:10)
[2019-09-25] MEDS ORDERED: HYDRALAZINE HCL INJ/PF 20 MG/1 ML SDV IV PRN (05:14)
[2019-09-25] MEDS ORDERED: METOPROLOL TARTRATE PF/INJ 5 MG/5 ML SDV IV PRN (05:14)
[2019-09-25] MEDS ORDERED: INSULIN REG, HUMAN 100 UNIT/ML 3 ML VIAL (PYX) ONE (05:25)
--- NOTE | 2019-09-25 05:34 | PDOC H&P ---
History of Present Illness Admission Date/PCP: 09/25/19 05:11 CHANNING PEACOCK History of Present Illness: FAITH RAVI is a 19 year old male past medical history of type 1 diabetes will recurrent DKA due to noncompliance, heroin abuse, endocarditis, asthma, hypertension, presenting to ED complaining of shortness of breath, abdominal pain, nausea, nonbloody non-bilious vomiting and polyuria in the setting of not taking his insulin due to to the fact that he was staying at his brothers and forgot to take his supplies with him. Denies any fever, chills, cough, chest pain, sore throat, diarrhea, constipation, dysuria or hematuria. In ED he was noted to be in DKA and hospital was consulted for admission. Past Medical History Pulmonary Medical History: Reports: Asthma Endocrine Medical History: Reports: Diabetes Mellitus Type 1 Psychiatric Medical History: Denies: Depression Social History Smoking Status: Current Every Day Smoker Frequency of Alcohol Use: None Hx Recreational Drug Use: Yes Drugs: Heroin Hx Prescription Drug Abuse: No Family History Family History: Reviewed & Not Pertinent, Hypertension, Other - Lupus Parental Family History Reviewed: Yes Children Family History Reviewed: Yes Sibling(s) Family History Reviewed.: Yes Medication/Allergy Home Medications: Insulin Lispro [Humalog Kwikpen] 0 unit SQ .PER SLIDING SCALE 07/26/19 Insulin NPH Hum/Reg Insulin Hm [Novolin 70-30 Flexpen] 60 unit SQ BID 07/26/19 Allergies/Adverse Reactions: No Known Allergies Allergy (Verified 09/25/19 03:38) Review of Systems Review of Systems: as per hpi Physical Exam Vital Signs: Temp Pulse Resp BP Pulse Ox 98.2 F 83 26 H 125/38 L 100 09/25/19 04:10 09/25/19 03:33 09/25/19 04:10 09/25/19 04:10 09/25/19 04:10 Intake & Output 09/23/19 09/24/19 09/25/19 06:59 06:59 06:59 Weight 55.6 kg General appearance: PRESENT: mild distress, thin Head exam: PRESENT: atraumatic, normocephalic Respiratory exam: PRESENT: clear to auscultation santhosh, tachypnea. ABSENT: rales, rhonchi, wheezes Cardiovascular exam: PRESENT: RRR, systolic murmur. ABSENT: diastolic murmur, rubs GI/Abdominal exam: PRESENT: normal bowel sounds, soft. ABSENT: distended, guarding, mass, organolmegaly, rebound, tenderness Neurological exam: PRESENT: alert, awake, oriented to person, oriented to place, oriented to time, oriented to situation, CN II-XII grossly intact. ABSENT: mo tor sensory deficit Skin exam: PRESENT: dry, intact, warm. ABSENT: cyanosis, rash Results Laboratory Results: 09/25/19 03:56 09/25/19 03:56 09/25/19 09/25/19 09/25/19 03:56 03:56 03:56 WBC 15.3 H RBC 5.46 Hgb 13.4 L Hct 44.5 MCV 81 MCH 24.6 L MCHC 30.2 L RDW 16.0 H Plt Count 349 Seg Neutrophils % Not Reportable Sodium 132.4 L Potassium 6.5 H* Chloride 104 Carbon Dioxide < 5 L* Anion Gap Not Reportable BUN 11 Creatinine 0.86 Est GFR ( Amer) > 60 Glucose 522 H* Calcium 8.5 Magnesium 2.2 Total Bilirubin 0.5 AST 45 Alkaline Phosphatase 140 H Total Protein 7.2 Albumin 4.2 Assessment and Plan - Diagnosis (1) Diabetic ketoacidosis Qualifiers: Diabetes mellitus type: type 1 Diabetes mellitus complication detail: without coma Qualified Code(s): E10.10 - Type 1 diabetes mellitus with ketoacidosis without coma Is this a current diagnosis for this admission?: Yes Plan: History of recurrent DKA due to noncompliance. Admit to IMCU, insulin drip, volume resuscitation guided by volume status, every 6 BMP to monitor electrolytes, switch to subcutaneous insulin once anion gap closes. Consult case hardener for possible help him to insulin supplies. Diabetic education. (2) Hyperkalemia Is this a current diagnosis for this admission?: Yes Plan: Due to DKA. EKG no acute changes. Telemetry, every 6 BMP, treat underlying DKA. (3) Hyponatremia Is this a current diagnosis for this admission?: Yes Plan: Most likely pseudohyponatremia due to underlying hyperglycemia. Every 6 BMP. Monitor for seizures. (4) Diabetes mellitus type 1 Qualifiers: Diabetes mellitus complication status: with hyperglycemia Qualified Code(s): E10.65 - Type 1 diabetes mellitus with hyperglycemia Is this a current diagnosis for this admission?: Yes Plan: History of type 1 diabetes with recurrent admissions for DKA due to noncompliance. Diabetic diet. Switch to basal, correctional and prandial insulin once DKA has resolved. Accu-Chek, hypoglycemia protocol. Diabetic education. (5) Leukocytosis Qualifiers: Leukocytosis type: bandemia Qualified Code(s): D72.825 - Bandemia Is this a current diagnosis for this admission?: Yes Plan: Likely due to underlying DKA. Denies any fever. No sign of infection. We will obtain blood cultures if any sign infection will start on broad-spectrum empiric IV antibiotics. Follow-up blood culture.
[2019-09-25 05:39] LABS: APPEARANCE,URINE CLEAR; BILIRUBIN,URINE NEGATIVE (NEGATIVE); COLOR,URINE STRAW; GLUCOSE, URINE >=500 mg/dL (NEGATIVE); KETONES,URINE 80 mg/dL (NEGATIVE); LEUKOCYTE ESTERASE,URINE NEGATIVE (NEGATIVE); NITRITE,URINE NEGATIVE (NEGATIVE); PROTEIN,URINE 30 mg/dL (NEGATIVE); URINE SPECIFIC GRAVITY 1.017; UROBILINOGEN,URINE NEGATIVE mg/dL (<2.0)
[2019-09-25 05:54] LABS: BLOOD UREA NITROGEN 11 mg/dL (7-20); CALCIUM 8.1 mg/dL (8.4-10.2)
[2019-09-25 06:04] LABS: CHLORIDE 106 mmol/L (98-107)
[2019-09-25 06:08] LABS: VENOUS BLOOD HCO3 2.7 mmol/L (20-32); VENOUS BLOOD PCO2 21.5 mmHg (35-63)
[2019-09-25 06:12] LABS: VENOUS BLOOD PH 6.72 (7.30-7.42)
[2019-09-25 06:19] LABS: POTASSIUM 5.5 mmol/L (3.6-5.0)
[2019-09-25 06:21] LABS: GLUCOSE 492 mg/dL (75-110)
[2019-09-25] MEDS: NORMAL SALINE 100 ML with INSULIN REGULAR, HUMAN 100 UNIT IV PRN ×4 (06:34→19:08)
[2019-09-25] MEDS ORDERED: DEXTROSE 5%-WATER 1000 ML 1,000 ML with SODIUM BICARBONATE 150 MEQ IV PRN ×4 (06:58→07:01)
[2019-09-25] MEDS ORDERED: SODIUM BICARBONATE 8.4% INJ 50 MEQ/50 ML DISP.SYRIN ONE ×2 (06:59→07:04)
[2019-09-25] MEDS ORDERED: INSULIN REG, HUMAN 100 UNIT/ML 3 ML VIAL (PYX) IV ONE (08:10)
[2019-09-25 08:35] LABS: ARTERIAL BLOOD FIO2 ROOM AIR; ARTERIAL BLOOD H2CO3 0.27 mmol/L (1.05-1.35); ARTERIAL BLOOD HCO3 1.4 mmol/L (20-24); ARTERIAL BLOOD O2 SATURATION 97.4 % (94-98); ARTERIAL BLOOD PO2 168.6 mmHg (80-100); ARTERIAL BLOOD TOTAL CO2 1.7 mmol/L (23-27)
[2019-09-25 08:36] LABS: ARTERIAL BLOOD PCO2 8.9 mmHg (35-45); ARTERIAL BLOOD PH 6.81 (7.35-7.45)
[2019-09-25] MEDS: ENOXAPARIN SODIUM INJ 40 MG/0.4 ML DISP.SYRIN SUBCUT SCH (10:35)
[2019-09-25] MEDS: FAMOTIDINE 20 MG TABLET PO SCH ×2 (10:36→21:16)
--- NOTE | 2019-09-25 10:46 | RADIOLOGY REPORT (SQ) ---
EXAM DESCRIPTION: CHEST SINGLE VIEW IMAGES COMPLETED DATE/TIME: 09/25/2019 10:36 am REASON FOR STUDY: sob COMPARISON: 07/26/2019 EXAM PARAMETERS: NUMBER OF VIEWS: One view. TECHNIQUE: Single frontal radiographic view of the chest acquired. RADIATION DOSE: NA LIMITATIONS: None. FINDINGS: LUNGS AND PLEURA: No opacities, masses or pneumothorax. No pleural effusion. MEDIASTINUM AND HILAR STRUCTURES: No masses. Contour normal. HEART AND VASCULAR STRUCTURES: Heart normal in size. Normal vasculature. BONES: No acute findings. HARDWARE: None in the chest. OTHER: No other significant finding. IMPRESSION: NO ACUTE RADIOGRAPHIC FINDING IN THE CHEST. TECHNICAL DOCUMENTATION: JOB ID: [id number] 2010 [employer]- All Rights Reserved Reading location - IP/workstation name: [email or web address]
--- NOTE | 2019-09-25 11:13 | EKG REPORT ---
SEVERITY:- BORDERLINE ECG - SINUS RHYTHM BORDERLINE PROLONGED QT INTERVAL : Confirmed by: Ese Cyr MD 25-Sep-2019 11:13:21
[2019-09-25 12:40] LABS: ARTERIAL BLOOD BASE EXCESS -24.9 mmol/L; ARTERIAL BLOOD H2CO3 0.35 mmol/L (1.05-1.35); ARTERIAL BLOOD HCO3 3.3 mmol/L (20-24); ARTERIAL BLOOD O2 SATURATION 97.7 % (94-98); ARTERIAL BLOOD PO2 139.2 mmHg (80-100); ARTERIAL BLOOD TOTAL CO2 3.6 mmol/L (23-27)
[2019-09-25 12:41] LABS: ARTERIAL BLOOD PCO2 11.7 mmHg (35-45); ARTERIAL BLOOD PH 7.06 (7.35-7.45)
[2019-09-25 12:42] LABS: ARTERIAL BLOOD FIO2 ROOM AIR
[2019-09-25 13:01] LABS: BLOOD UREA NITROGEN 12 mg/dL (7-20); CALCIUM 7.9 mg/dL (8.4-10.2); CHLORIDE 112 mmol/L (98-107); GLUCOSE 311 mg/dL (75-110)
[2019-09-25 14:02] LABS: POTASSIUM 4.3 mmol/L (3.6-5.0)
[2019-09-25 14:03] LABS: CARBON DIOXIDE < 5 mmol/L (22-30)
[2019-09-25] MEDS ORDERED: DEXTROSE 5%-NORMAL SALINE 1,000 ML IV PRN (14:03)
[2019-09-25] MEDS ORDERED: ALBUTEROL SULFATE 0.083% NEB 2.5 MG/3 ML AMPUL NEB PRN (15:03)
[2019-09-25 15:27] LABS: ARTERIAL BLOOD BASE EXCESS -17.6 mmol/L; ARTERIAL BLOOD FIO2 ROOM AIR; ARTERIAL BLOOD H2CO3 0.65 mmol/L (1.05-1.35); ARTERIAL BLOOD HCO3 8.4 mmol/L (20-24); ARTERIAL BLOOD PCO2 21.7 mmHg (35-45); ARTERIAL BLOOD PH 7.21 (7.35-7.45); ARTERIAL BLOOD PO2 127.4 mmHg (80-100); ARTERIAL BLOOD TOTAL CO2 9.1 mmol/L (23-27)
[2019-09-25] MEDS: POTASSI CL 20 MEQ/D5-1/2NS 1L 1,000 ML IV PRN ×2 (15:39→21:17)
--- NOTE | 2019-09-25 16:09 | CRITICAL CARE ADMISSION REPORT ---
HPI Date:: 09/25/19 Time:: 10:43 Reason for ICU Reason:: diabetic ketoacidosis Admission Date/Time & PCP: Admission Date/Time: 09/25/19 05:11 Primary Care Provider: CHANNING PEACOCK HPI: FAITH RAVI is a 19 year old male past medical history of type 1 diabetes will recurrent DKA due to noncompliance, heroin abuse, endocarditis, asthma, hypertension, presenting to ED complaining of shortness of breath, abdominal pain, nausea, nonbloody non-bilious vomiting and polyuria in the setting of not taking his insulin due to to the fact that he was staying at his brothers and forgot to take his supplies with him. Denies any fever, chills, cough, chest pain, sore throat, diarrhea, constipation, dysuria or hematuria. In ED he was noted to be in DKA. History obtained from:: patient - Diagnosis/Plan (1) Diabetic ketoacidosis Qualifiers: Diabetes mellitus type: type 1 Diabetes mellitus complication detail: without coma Qualified Code(s): E10.10 - Type 1 diabetes mellitus with ketoacidosis without coma Is this a current diagnosis for this admission?: Yes Plan: IV fluids: NS @ 250 mL/hr. Insulin gtt. Agree with sodium bicarbonate gtt for now. EKG. Blood cultures. UDS. (2) Hyperkalemia Is this a current diagnosis for this admission?: Yes (3) Leukocytosis Qualifiers: Leukocytosis type: bandemia Qualified Code(s): D72.825 - Bandemia Is this a current diagnosis for this admission?: Yes Plan: Blood cultures pending. (4) Diabetes mellitus type 1 Qualifiers: Diabetes mellitus complication status: with hyperglycemia Qualified Code(s): E10.65 - Type 1 diabetes mellitus with hyperglycemia Is this a current diagnosis for this admission?: Yes (5) HTN (hypertension) Qualifiers: Hypertension type: essential hypertension Qualified Code(s): I10 - Essential (primary) hypertension Is this a current diagnosis for this admission?: Yes (6) Asthma Qualifiers: Asthma severity: mild Asthma persistence: intermittent Asthma complication type: uncomplicated Qualified Code(s): J45.20 - Mild intermittent asthma, uncomplicated Is this a current diagnosis for this admission?: Yes Plan: albuterol PRN. Plan Summary: ADMIT to ICU. Past Medical History Pulmonary Medical History: Reports: Asthma Endocrine Medical History: Reports: Diabetes Mellitus Type 1 Psychiatric Medical History: Denies: Depression Social/Family History - Social History Smoking Status: Current Every Day Smoker Frequency of Alcohol Use: None Hx Recreational Drug Use: Yes Drugs: Heroin Hx Prescription Drug Abuse: No - Medication/Allergies Home Medications: Insulin Lispro [Humalog Kwikpen] 0 unit SQ .PER SLIDING SCALE 07/26/19 Insulin NPH Hum/Reg Insulin Hm [Novolin 70-30 Flexpen] 30 unit SQ BID 07/26/19 Allergies/Adverse Reactions: No Known Allergies Allergy (Verified 09/25/19 03:38) Review of Systems Constitutional: ABSENT: chills, fever(s), headache(s), weight gain, weight loss Eyes: ABSENT: visual disturbances Ears: ABSENT: hearing changes Cardiovascular: ABSENT: chest pain, dyspnea on exertion, edema, orthropnea, palpitations Respiratory: ABSENT: cough, hemoptysis Gastrointestinal: PRESENT: abdominal pain, nausea, vomiting Genitourinary: PRESENT: other - polyuria Musculoskeletal: ABSENT: joint swelling Integumentary: ABSENT: rash, wounds Neurological: ABSENT: abnormal gait, abnormal speech, confusion, dizziness, focal weakness, syncope Psychiatric: ABSENT: anxiety, depression, homidical ideation, suicidal ideation Endocrine: PRESENT: polyuria Hematologic/Lymphatic: ABSENT: easy bleeding, easy bruising Physical Exam Vital Signs: Temp Pulse Resp BP Pulse Ox 98.2 F 83 24 H 123/55 L 100 09/25/19 04:11 09/25/19 03:33 09/25/19 10:00 09/25/19 09:32 09/25/19 10:00 Intake & Output 09/24/19 09/25/19 09/26/19 06:59 06:59 06:59 Intake Total 1000 1011 Output Total 1875 Balance 1000 -864 Weight 55.6 kg Weight/Height Weight 55.6 kg Height 1.83 m General appearance: PRESENT: no acute distress, well-developed, well-nourished Head exam: PRESENT: atraumatic, normocephalic Eye exam: PRESENT: conjunctiva pink, EOMI, PERRLA. ABSENT: scleral icterus Mouth exam: PRESENT: dry mucosa, tongue midline Neck exam: ABSENT: carotid bruit, JVD, lymphadenopathy, thyromegaly Respiratory exam: PRESENT: clear to auscultation santhosh. ABSENT: rales, rhonchi, wheezes Cardiovascular exam: PRESENT: RRR, tachycardia. ABSENT: diastolic murmur, rubs, systolic murmur GI/Abdominal exam: PRESENT: normal bowel sounds, soft. ABSENT: distended, guarding, mass, organolmegaly, rebound, tenderness Extremities exam: PRESENT: full ROM. ABSENT: calf tenderness, clubbing, pedal edema Neurological exam: PRESENT: alert, awake, oriented to person, oriented to place, oriented to time, oriented to situation, CN II-XII grossly intact. ABSENT: motor sensory deficit Psychiatric exam: PRESENT: agitated Skin exam: PRESENT: dry, intact, warm. ABSENT: cyanosis, rash Laboratory/Radiographs Laboratory Results: 09/25/19 03:56 09/25/19 05:15 09/25/19 09/25/19 09/25/19 03:56 03:56 03:56 WBC 15.3 H RBC 5.46 Hgb 13.4 L Hct 44.5 MCV 81 MCH 24.6 L MCHC 30.2 L RDW 16.0 H Plt Count 349 Seg Neutrophils % Not Reportable Carbonic Acid HCO3/H2CO3 Ratio ABG pH ABG pCO2 ABG pO2 ABG HCO3 ABG O2 Saturation ABG Base Excess VBG pH VBG pCO2 VBG HCO3 VBG Base Excess FiO2 Sodium 132.4 L Potassium 6.5 H* Chloride 104 Carbon Dioxide < 5 L* Anion Gap Not Reportable BUN 11 Creatinine 0.86 Est GFR ( Amer) > 60 Glucose 522 H* Calcium 8.5 Magnesium 2.2 Total Bilirubin 0.5 AST 45 Alkaline Phosphatase 140 H Total Protein 7.2 Albumin 4.2 Urine Color Urine Appearance Urine pH Ur Specific [place] Urine Protein Urine Glucose (UA) Urine Ketones Urine Blood Urine Nitrite Ur Leukocyte Esterase Urine RBC (Auto) 09/25/19 09/25/19 09/25/19 05:15 05:15 05:15 WBC RBC Hgb Hct MCV MCH MCHC RDW Plt Count Seg Neutrophils % Carbonic Acid HCO3/H2CO3 Ratio ABG pH ABG pCO2 ABG pO2 ABG HCO3 ABG O2 Saturation ABG Base Excess VBG pH 6.72 L* VBG pCO2 21.5 L VBG HCO3 2.7 L VBG Base Excess -33.0 FiO2 Sodium 133.6 L Potassium 5.5 H D Chloride 106 Carbon Dioxide < 5 L* Anion Gap Not Reportable BUN 11 Creatinine 0.71 Est GFR ( Amer) > 60 Glucose 492 H* Calcium 8.1 L Magnesium Total Bilirubin AST Alkaline Phosphatase Total Protein Albumin Urine Color STRAW Urine Appearance CLEAR Urine pH 5.0 Ur Specific [place] 1.017 Urine Protein 30 H Urine Glucose (UA) >=500 H Urine Ketones 80 H Urine Blood SMALL H Urine Nitrite NEGATIVE Ur Leukocyte Esterase NEGATIVE Urine RBC (Auto) 0 09/25/19 08:22 WBC RBC Hgb Hct MCV MCH MCHC RDW Plt Count Seg Neutrophils % Carbonic Acid 0.27 L HCO3/H2CO3 Ratio 5:1 ABG pH 6.81 L* ABG pCO2 8.9 L* ABG pO2 168.6 H ABG HCO3 1.4 L ABG O2 Saturation 97.4 ABG Base Excess -32.0 VBG pH VBG pCO2 VBG HCO3 VBG Base Excess FiO2 ROOM AIR Sodium Potassium Chloride Carbon Dioxide Anion Gap BUN Creatinine Est GFR ( Amer) Glucose Calcium Magnesium Total Bilirubin AST Alkaline Phosphatase Total Protein Albumin Urine Color Urine Appearance Urine pH Ur Specific [place] Urine Protein Urine Glucose (UA) Urine Ketones Urine Blood Urine Nitrite Ur Leukocyte Esterase Urine RBC (Auto) All labs, radiographs, diagnostic studies and EKGs were personally reviewed: Yes In addition, reports of radiographic and diagnostic studies were read: Yes Critical Time Critical Time (minutes): 60 -: The care of a critically ill patient is dynamic. This note represents a static moment in the admission process. Orders and treatments may be given simultaneously and urgently, and time is not sales representative church furniture of the treatment process. This patient requires Critical Care secondary to life threatening organ or limb dysfunction. Without Critical Care services, the patient is at risk for increased mortality and morbidity.
[2019-09-25 19:19] LABS: BLOOD UREA NITROGEN 8 mg/dL (7-20); CALCIUM 7.6 mg/dL (8.4-10.2); CHLORIDE 114 mmol/L (98-107); GLUCOSE 206 mg/dL (75-110); POTASSIUM 3.5 mmol/L (3.6-5.0)
[2019-09-25 19:25] LABS: ANION GAP 10 (5-19)
[2019-09-25 19:28] LABS: CARBON DIOXIDE 9 mmol/L (22-30)
[2019-09-25 19:50] LABS: URINE AMPHETAMINES SCREEN NEGATIVE; URINE BARBITURATES SCREEN NEGATIVE; URINE BENZODIAZEPINES SCREEN NEGATIVE; URINE COCAINE SCREEN NEGATIVE; URINE MARIJUANA (THC) SCREEN NEGATIVE; URINE METHADONE SCREEN NEGATIVE; URINE PHENCYCLIDINE SCREEN NEGATIVE
[2019-09-25] MEDS ORDERED: POTASSIUM CHLORIDE 10 MEQ TABLET.ER PO ONE (21:00)
[2019-09-25 23:23] LABS: ANION GAP 5 (5-19); BLOOD UREA NITROGEN 7 mg/dL (7-20); CALCIUM 7.9 mg/dL (8.4-10.2); CARBON DIOXIDE 15 mmol/L (22-30); CHLORIDE 112 mmol/L (98-107); GLUCOSE 134 mg/dL (75-110); PHOSPHORUS 0.7 mg/dL (2.5-4.5)
[2019-09-25] MEDS ORDERED: POTASSI CL 20 MEQ/50 ML RIDER 20 MEQ/50 ML RTUPB IV ONE (23:31)
[2019-09-25] MEDS: PHOSPHORUS #1 250 MG TABLET PO SCH (23:56)
[2019-09-25] MEDS: MAGNESIUM SULFATE/D5W 1 GM/100 ML RTUPB IV SCH (23:58)
[2019-09-25] MEDS: POTASSI CL 20 MEQ/50 ML RIDER 20 MEQ/50 ML RTUPB IV SCH (23:59)
[2019-09-26] MEDS: POTASSI CL 20 MEQ/D5-1/2NS 1L 1,000 ML IV PRN ×2 (00:06→04:06)
[2019-09-26] MEDS: POTASSI CL 20 MEQ/50 ML RIDER 20 MEQ/50 ML RTUPB IV SCH (00:57)
[2019-09-26] MEDS: MAGNESIUM SULFATE/D5W 1 GM/100 ML RTUPB IV SCH ×3 (00:57→02:58)
[2019-09-26] MEDS: PHOSPHORUS #1 250 MG TABLET PO SCH ×4 (03:01→15:51)
[2019-09-26 04:10] LABS: ABSOLUTE BASOPHILS # (AUTO) 0.1 10^3/uL (0.0-0.2); ABSOLUTE LYMPHOCYTES (AUTO) 0.8 10^3/uL (0.5-4.7); ABSOLUTE NEUT (AUTO) 8.7 10^3/uL (1.7-8.2); BASOPHILS % (AUTO) 0.5 % (0-2); EOSINOPHILS % (AUTO) 0.1 % (0-6); HEMATOCRIT 34.7 % (37.9-51.0); LYMPHOCYTES % (AUTO) 7.9 % (13-45); MEAN CORPUSCULAR HEMOGLOBIN 23.8 pg (27.0-33.4); MEAN CORPUSCULAR HGB CONC 32.5 g/dL (32.0-36.0); MONOCYTES % (AUTO) 9.3 % (3-13); PLATELET COUNT 201 10^3/uL (150-450); RED BLOOD COUNT 4.74 10^6/uL (4.35-5.55); SEGMENTED NEUTROPHILS % (AUTO) 82.2 % (42-78); TOTAL CELLS COUNTED % (AUTO) 100 %; WHITE BLOOD COUNT 10.6 10^3/uL (4.0-10.5)
[2019-09-26 04:12] LABS: HEMOGLOBIN 11.3 g/dL (13.5-17.0)
[2019-09-26 04:13] LABS: MEAN CORPUSCULAR VOLUME 73 fl (80-97)
[2019-09-26 04:24] LABS: ANION GAP 7 (5-19); BLOOD UREA NITROGEN 4 mg/dL (7-20); CALCIUM 7.4 mg/dL (8.4-10.2); CARBON DIOXIDE 15 mmol/L (22-30); CHLORIDE 108 mmol/L (98-107); GLUCOSE 283 mg/dL (75-110); PHOSPHORUS 0.7 mg/dL (2.5-4.5); POTASSIUM 3.4 mmol/L (3.6-5.0)
[2019-09-26] MEDS ORDERED: POTASSIUM CHLORIDE 20 MEQ PACKET PO ONE (06:24)
[2019-09-26] MEDS ORDERED: POTASSI CL 20 MEQ/50 ML RIDER 20 MEQ/50 ML RTUPB IV ONE ×2 (06:27→06:36)
[2019-09-26] MEDS ORDERED: CEFAZOLIN INJ 1 GM VIAL ONE (06:37)
[2019-09-26] MEDS ORDERED: CEFAZOLIN SODIUM 2 GM in DEXTROSE 5%-WATER 100 ML IV SCH (07:00)
[2019-09-26] MEDS ORDERED: INSULIN GLARGINE,HUM.REC.ANLOG 1,000 UNIT/10 ML VIAL (PYX) SUBCUT ONE (10:00)
[2019-09-26] MEDS: FAMOTIDINE 20 MG TABLET PO SCH (10:02)
[2019-09-26] MEDS: ENOXAPARIN SODIUM INJ 40 MG/0.4 ML DISP.SYRIN SUBCUT SCH (10:02)
[2019-09-26] MEDS: NAFCILLIN SODIUM 2 GM in DEXTROSE 5%-WATER 100 ML IV SCH ×2 (11:11→15:49)
[2019-09-26] MEDS ORDERED: INSULIN REG, HUMAN 100 UNIT/ML 3 ML VIAL (PYX) ONE (13:45)
[2019-09-26] MEDS ORDERED: INSULIN LISPRO 100 UNIT/ML 3 ML VIAL ONE (13:47)
[2019-09-26 14:01] LABS: ANION GAP 9 (5-19); BLOOD UREA NITROGEN 4 mg/dL (7-20); CALCIUM 7.7 mg/dL (8.4-10.2); CARBON DIOXIDE 14 mmol/L (22-30); CHLORIDE 110 mmol/L (98-107); GLUCOSE 323 mg/dL (75-110); POTASSIUM 3.4 mmol/L (3.6-5.0)
[2019-09-26 14:05] VITALS: BP 148/76
--- NOTE | 2019-09-26 15:42 | PDOC CRITICAL CARE PROG REPORT ---
General Date:: 09/26/19 ICU Day:: 2 Hospital Day:: 2 Resuscitation Status: Full Code Events in the past 12 to 24 Hours:: 09/25: Admitted yesterday with diabetic ketoacidosis. Remains on insulin drip. Anion gap is closed. Tolerating p.o. diet. No nausea. No vomiting. No fever. Urine drug screen was positive for opiates. Admits to IV heroin abuse. Blood cultures were positive for MSSA. Review of systems relevant to events:: Endocrine: Diabetic ketoacidosis Reason for ICU Addmission:: diabetic ketoacidosis - Medications: Medications reviewed and adjusted accordingly: Yes Physical Exam Vital Signs: Temp Pulse Resp BP Pulse Ox 98.1 F 87 20 132/74 H 100 09/26/19 08:00 09/25/19 20:44 09/26/19 06:00 09/26/19 05:01 09/26/19 06:00 Intake & Output 09/25/19 09/26/19 09/27/19 06:59 06:59 06:59 Intake Total 1000 4202 Output Total 5225 1500 Balance 1000 -1023 -1500 Weight 55.6 kg 62.3 kg Weight/Height Weight 62.3 kg Height 1.83 m General appearance: PRESENT: no acute distress, well-developed, well-nourished Head exam: PRESENT: atraumatic, normocephalic Mouth exam: PRESENT: moist, tongue midline Neck exam: ABSENT: carotid bruit, JVD, lymphadenopathy, thyromegaly Respiratory exam: PRESENT: clear to auscultation santhosh. ABSENT: rales, rhonchi, wheezes Cardiovascular exam: PRESENT: RRR. ABSENT: diastolic murmur, rubs, systolic murmur Pulses: PRESENT: normal dorsalis pedis pul Vascular exam: PRESENT: normal capillary refill GI/Abdominal exam: PRESENT: normal bowel sounds, soft. ABSENT: distended, guarding, mass, organolmegaly, rebound, tenderness Extremities exam: PRESENT: full ROM. ABSENT: calf tenderness, clubbing, pedal edema Neurological exam: PRESENT: alert, awake, oriented to person, oriented to place, oriented to time, oriented to situation, CN II-XII grossly intact. ABSENT: motor sensory deficit Skin exam: PRESENT: dry, intact, warm. ABSENT: cyanosis, rash Laboratory/Radiographs Laboratory Results: 09/26/19 03:58 07/02/20 03:58 09/25/19 09/25/19 09/25/19 12:15 12:19 15:00 WBC RBC Hgb Hct MCV MCH MCHC RDW Plt Count Seg Neutrophils % Carbonic Acid 0.35 L 0.65 L HCO3/H2CO3 Ratio 9:1 12:1 ABG pH 7.06 L* 7.21 L ABG pCO2 11.7 L* 21.7 L ABG pO2 139.2 H 127.4 H ABG HCO3 3.3 L 8.4 L ABG O2 Saturation 97.7 98.0 ABG Base Excess -24.9 -17.6 FiO2 ROOM AIR ROOM AIR Sodium 137.1 Potassium 4.3 D Chloride 112 H Carbon Dioxide < 5 L* Anion Gap Not Reportable BUN 12 Creatinine 0.60 Est GFR ( Amer) > 60 Glucose 311 H Calcium 7.9 L Phosphorus Magnesium 09/25/19 09/25/19 09/26/19 18:44 22:59 03:58 WBC RBC Hgb Hct MCV MCH MCHC RDW Plt Count Seg Neutrophils % Carbonic Acid HCO3/H2CO3 Ratio ABG pH ABG pCO2 ABG pO2 ABG HCO3 ABG O2 Saturation ABG Base Excess FiO2 Sodium 133.0 L 132.3 L 129.6 L Potassium 3.5 L 3.0 L* 3.4 L Chloride 114 H 112 H 108 H Carbon Dioxide 9 L* 15 L 15 L Anion Gap 10 5 7 BUN 8 7 4 L Creatinine 0.39 L 0.39 L 0.35 L Est GFR ( Amer) > 60 > 60 > 60 Glucose 206 H 134 H 283 H Calcium 7.6 L 7.9 L 7.4 L Phosphorus 0.7 L 0.7 L Magnesium 1.5 L 7.5 H* D 09/26/19 03:58 WBC 10.6 H RBC 4.74 Hgb 11.3 L D Hct 34.7 L MCV 73 L D MCH 23.8 L MCHC 32.5 RDW 15.0 H Plt Count 201 Seg Neutrophils % 82.2 H Carbonic Acid HCO3/H2CO3 Ratio ABG pH ABG pCO2 ABG pO2 ABG HCO3 ABG O2 Saturation ABG Base Excess FiO2 Sodium Potassium Chloride Carbon Dioxide Anion Gap BUN Creatinine Est GFR ( Amer) Glucose Calcium Phosphorus Magnesium 07/01/20 07:19 Blood Blood Culture (PCR) - Final Staphylococcus Aureus Impressions: Chest X-Ray 09/25/19 00:00 IMPRESSION: NO ACUTE RADIOGRAPHIC FINDING IN THE CHEST. All labs, radiographs, diagnostic studies and EKGs were personally reviewed: Yes In addition, reports of radiographic and diagnostic studies were read: Yes Assessment and Plan - Diagnosis (1) Diabetic ketoacidosis Qualifiers: Diabetes mellitus type: type 1 Diabetes mellitus complication detail: without coma Qualified Code(s): E10.10 - Type 1 diabetes mellitus with ketoacidosis without coma Is this a current diagnosis for this admission?: Yes Plan: Resolved. Start Lantus 20 units subcutaneously daily. I will defer subsequent diabetes management to the hospitalist service. Consult senior case manager for possible help him to insulin supplies. Diabetic education. (2) Bacteremia due to methicillin susceptible Staphylococcus aureus (MSSA) Is this a current diagnosis for this admission?: Yes Plan: Started on cefazolin in the interim. Changed to nafcillin. Repeat blood cultures on 09/27. No stigmata of endocarditis on physical examination. (3) Diabetes mellitus type 1 Qualifiers: Diabetes mellitus complication status: with hyperglycemia Qualified Code(s): E10.65 - Type 1 diabetes mellitus with hyperglycemia Is this a current diagnosis for this admission?: Yes Plan: History of type 1 diabetes with recurrent admissions for DKA due to noncompliance. Diabetic diet. Switch to basal, correctional and prandial insulin once DKA has resolved. Accu-Chek, hypoglycemia protocol. Diabetic education. (4) Hyperkalemia Is this a current diagnosis for this admission?: Yes (5) Leukocytosis Qualifiers: Leukocytosis type: bandemia Qualified Code(s): D72.825 - Bandemia Is this a current diagnosis for this admission?: Yes Plan: Cultures were positive for MSSA (x2 sets), unknown source. (6) HTN (hypertension) Qualifiers: Hypertension type: essential hypertension Qualified Code(s): I10 - Essential (primary) hypertension Is this a current diagnosis for this admission?: Yes (7) Asthma Qualifiers: Asthma severity: mild Asthma persistence: intermittent Asthma complication type: uncomplicated Qualified Code(s): J45.20 - Mild intermittent asthma, uncomplicated Is this a current diagnosis for this admission?: Yes Plan Summary: OK for the floor from pulmonary standpoint. Needs follow up blood cultures on 7/4. Critical Time Critical Time (minutes): 60 Level of Care: ICU -: 1. The care of a critical patient is a dynamic process. This note is a malt liquors sales representative synopsis but static in nature. The timeframe for treatments given in order is not necessarily the actual time these treatments may have been done. 2. This patient requires critical care secondary to ongoing requirements for therapy not offered or safe outside the critical care environment. Transfer to a lower level of care will result in altered life or limb morbidity and mortality. 3. Multidisciplinary rounds completed. 4. ABCDE bundle addressed.
[2019-09-26] MEDS ORDERED: INSULIN LISPRO 100 UNIT/ML 3 ML VIAL SUBCUT SCH (16:00)
--- NOTE | 2019-09-26 16:55 | Progress Note ---
Provider Note Provider Note: The patient is insisting on leaving AGAINST MEDICAL ADVICE. He states that he is responsible for taking care of his 6 month old child while his is at work. No other family members available to help with this emergent situation. I explained that he is not medically ready to be discharged, as he has just completed his continuous insulin infusion for diabetic ketoacidosis earlier today (and transitioning to long-acting insulin for basal-bolus treatment). Furthermore, he has MSSA bacteremia (with a history of IV drug abuse) for which he has been started on IV antibiotic therapy, which cannot be arranged for him as an outpatient at this time. I explained that he would be putting himself at risk of clinical deterioration and even by leaving against medical advice, as he would be unable to continue antibiotic therapy and admits nonadherence to his prescribed insulin regimen. He voiced understanding. He understands that all IV access must be removed prior to his departure.
[2019-09-26 23:25] LABS: CARBON DIOXIDE < 5 mmol/L (22-30)
[2019-09-27] MEDS ORDERED: INSULIN GLARGINE,HUM.REC.ANLOG 1,000 UNIT/10 ML VIAL SUBCUT SCH (10:00)
== END 2019-09-26 17:01 | disposition left against medical advice (07) | DRG 638 ==
LOC: ER 03:23 → EH 05:11 → ICU 12:00
PROVIDERS: ADMIT Internal Medicine Critical Care Medicine; ATTEND Internal Medicine Critical Care Medicine
DX: E10.10 Type 1 diabetes mellitus with ketoacidosis without coma (principal); E87.1 Hypo-osmolality and hyponatremia; R78.81 Bacteremia; E87.5 Hyperkalemia; J45.20 Mild intermittent asthma, uncomplicated; D72.825 Bandemia; F11.10 Opioid abuse, uncomplicated; F17.210 Nicotine dependence, cigarettes, uncomplicated; B95.61 Methicillin susceptible Staphylococcus aureus infection as the cause of diseases classified elsewhere
CPT/HCPCS: 36415; 36600; 71045; 80048; 80053; 80307; 81001; 82803; 82962; 83036; 83735; 84100; 85025; 87040; 87077; 87150; 87186; 93005; 93010; 96361; 96374; 99291; J0690; J1650; J1815; J2405; J3475; J3480; J3490; J7030; J7042; J7050; J7060; S0032

== ENCOUNTER 2019-10-20 13:46 | Inpatient (IN) | payer SELFPAY ==
[2019-10-20] MEDS ORDERED: NORMAL SALINE 1000 ML 1,000 ML IV ONE ×3 (13:59→16:14)
--- NOTE | 2019-10-20 14:34 | ER Document Report ---
ED General - General Chief Complaint: Altered Mental Status Stated Complaint: ALTERED MENTAL STATUS Time Seen by Provider: 10/20/19 13:58 Mode of Arrival: Medic Information source: Emergency Med Personnel Notes: 19-year-old male who came home at approximately midnight last night. Sister states that she thought that he was intoxicated and hung over, however this morning he was poorly responsive and unable to be his normal self. He has a history of diabetic ketoacidosis. It is unclear when he took his last doses of medications. Presently he is poorly responsive to verbal stimuli and moaning and groaning. He appears to be dry, tachycardic and kussmal breathing. TRAVEL OUTSIDE OF THE [place] IN LAST 30 DAYS: No - Related Data Allergies/Adverse Reactions: No Known Allergies Allergy (Verified 09/25/19 03:38) Past Medical History - Social History Smoking Status: Current Every Day Smoker Family History: Reviewed & Not Pertinent, Hypertension, Other - Lupus Pulmonary Medical History: Reports: Hx Asthma Endocrine Medical History: Reports: Hx Diabetes Mellitus Type 1 Renal/ Medical History: Denies: Hx Peritoneal Dialysis Psychiatric Medical History: Denies: Hx Depression Past Surgical History: Reports: Hx Abdominal Surgery - Immunizations Immunizations up to date: Yes Hx Diphtheria, Pertussis, Tetanus Vaccination: Yes Review of Systems - Review of Systems -: Yes ROS unobtainable due to patient's medical condition - Due to his presents status. Physical Exam - Vital signs Vitals: Pulse Resp BP Pulse Ox 83 32 H 147/78 H 100 10/20/19 13:47 10/20/19 13:47 10/20/19 13:47 10/20/19 13:47 - Notes Notes: PHYSICAL EXAMINATION: Physical Exam: General: Ill appearing 19-year-old male and moderate distress HEENT: NC/AT, eyes are sunken, mucous membranes are dry, pupils equal round and reactive to light, oropharynx clear, airway patent Neck: supple, no adenopathy, no masses. Good range of motion Lungs: clear, no wheezing, no rales no rhonchi CVS: Regular rate and rhythm no murmur gallop or rub Abdomen: Soft, active, nontender, no masses, no hepatosplenomegaly Ext: No edema, clubbing or cyanosis. Neuro: Responsive, moving all 4 extremities on command, cranial nerves intact, no focal findings Skin: Intact no open lesions, no rash PSYCH: Normal mood, normal affect. Course - Re-evaluation Re-evalutation: 10/20/19 15:30 19-year-old with diabetic ketoacidosis, pH 6.7, CO2 less than 5 patient has a blood sugar of 619. Is unclear when he took his last doses of medications. IV fluids bolusing 3 L, regular insulin 10 units IV, insulin drip at 5 units/h, he is also noted to be hypothermic temperature of 91 degrees rectal, is put on a heating blanket and blood cultures, lactate, WBC 28,000, and Zosyn started. It is unlikely that the patient is septic, however, hypothermia, WBC of 28,000 and DKA will treated empirically. I discussed the patient with the plant maintenance technician, Dr. Levine, states he will see the patient in the emergency department. He is asked that we do not give sodium bicarb as it is his opinion that it will make things difficult manage. - Vital Signs Vital signs: Temp Pulse Resp BP Pulse Ox 92.2 F L 86 30 H 159/79 H 100 10/20/19 14:56 10/20/19 14:56 10/20/19 18:01 10/20/19 18:01 10/20/19 18:01 - Laboratory Result Diagrams: 10/20/19 13:59 10/20/19 16:00 Laboratory results interpreted by me: 10/20/19 10/20/19 10/20/19 13:59 14:15 14:24 WBC 28.5 H Hgb 12.9 L MCH 24.7 L MCHC 27.7 L RDW 18.0 H Seg Neuts % (Manual) 83 H Lymphocytes % (Manual) 10 L Abs Neuts (Manual) 23.7 H Abs Monocytes (Manual) 2.0 H PT Carbonic Acid 0.31 L ABG pH 6.77 L* ABG pCO2 10.4 L* ABG pO2 145.7 H ABG HCO3 1.5 L ABG Total CO2 1.8 L Sodium 136.6 L Potassium 7.4 H* Chloride Carbon Dioxide < 5 L* BUN Creatinine 1.41 H Glucose 619 H* POC Glucose Calcium Magnesium 2.8 H ALT 51 H Alkaline Phosphatase 186 H Urine Protein Urine Glucose (UA) Urine Ketones Urine Blood 10/20/19 10/20/19 10/20/19 14:44 15:54 16:00 WBC Hgb MCH MCHC RDW Seg Neuts % (Manual) Lymphocytes % (Manual) Abs Neuts (Manual) Abs Monocytes (Manual) PT 17.5 H Carbonic Acid ABG pH ABG pCO2 ABG pO2 ABG HCO3 ABG Total CO2 Sodium Potassium Chloride Carbon Dioxide BUN Creatinine Glucose POC Glucose > 550 H* Calcium Magnesium ALT Alkaline Phosphatase Urine Protein 100 H Urine Glucose (UA) >=500 H Urine Ketones 80 H Urine Blood SMALL H 10/20/19 16:00 WBC Hgb MCH MCHC RDW Seg Neuts % (Manual) Lymphocytes % (Manual) Abs Neuts (Manual) Abs Monocytes (Manual) PT Carbonic Acid ABG pH ABG pCO2 ABG pO2 ABG HCO3 ABG Total CO2 Sodium Potassium 5.9 H D Chloride 111 H Carbon Dioxide < 5 L* BUN 22 H Creatinine 1.26 H Glucose 558 H* POC Glucose Calcium 8.0 L Magnesium ALT Alkaline Phosphatase Urine Protein Urine Glucose (UA) Urine Ketones Urine Blood - Diagnostic Test Radiology reviewed: Image reviewed, Reports reviewed Radiology results interpreted by me: 10/20/19 15:34 X-ray 1 view: No acute cardiopulmonary findings CT head noncontrast: No acute intracranial pathology. Critical Care Note - Critical Care Note Total time excluding time spent on procedures (mins): 60 - Critical care time spent obtaining history from patient or surrogate, discussions with consultants, development of treatment plan with patient or surrogate, evaluation of patient's response to treatment, examination of patient, ordering and performing treatments and interventions, ordering and review of laboratory studies, re- evaluation of patient's condition, ordering and review of radiographic studies and review of old charts Discharge - Discharge Clinical Impression: Tobacco use, Hyperkalemia Diabetic ketoacidosis Qualifiers: Diabetes mellitus type: type 1 Diabetes mellitus complication detail: without coma Qualified Code(s): E10.10 - Type 1 diabetes mellitus with ketoacidosis without coma Hypothermia Qualifiers: Encounter type: initial encounter Qualified Code(s): T68.XXXA - Hypothermia, initial encounter Leukocytosis Qualifiers: Leukocytosis type: unspecified Qualified Code(s): D72.829 - Elevated white blood cell count, unspecified Condition: Fair Disposition: ADMITTED INPATIENT Admitting Provider: Abner (Cardroom Worker) Unit Admitted: ICU
[2019-10-20 14:42] LABS: HEMATOCRIT 46.5 % (37.9-51.0); HEMOGLOBIN 12.9 g/dL (13.5-17.0); MEAN CORPUSCULAR HEMOGLOBIN 24.7 pg (27.0-33.4); MEAN CORPUSCULAR HGB CONC 27.7 g/dL (32.0-36.0); PLATELET COUNT 428 10^3/uL (150-450); RED BLOOD COUNT 5.22 10^6/uL (4.35-5.55); WHITE BLOOD COUNT 28.5 10^3/uL (4.0-10.5)
[2019-10-20 14:47] LABS: ALBUMIN 4.5 g/dL (3.5-5.0); ALKALINE PHOSPHATASE 186 U/L (38-126); ASPARTATE AMINO TRANSFERASE 32 U/L (17-59); BILIRUBIN,DIRECT 0.2 mg/dL (0.0-0.4); BILIRUBIN,TOTAL 0.6 mg/dL (0.2-1.3); BLOOD UREA NITROGEN 20 mg/dL (7-20); CALCIUM 9.6 mg/dL (8.4-10.2); CHLORIDE 104 mmol/L (98-107); CREATINE KINASE 71 U/L (55-170); TOTAL PROTEIN 7.8 g/dL (6.3-8.2)
[2019-10-20 14:48] LABS: ARTERIAL BLOOD BASE EXCESS -32.6 mmol/L; ARTERIAL BLOOD H2CO3 0.31 mmol/L (1.05-1.35); ARTERIAL BLOOD HCO3 1.5 mmol/L (20-24); ARTERIAL BLOOD O2 SATURATION 95.9 % (94-98); ARTERIAL BLOOD PO2 145.7 mmHg (80-100); ARTERIAL BLOOD TOTAL CO2 1.8 mmol/L (23-27)
[2019-10-20 14:51] LABS: ALCOHOL < 10 mg/dL (NONE DETECTED)
[2019-10-20 14:53] LABS: ARTERIAL BLOOD FIO2 ROOM AIR
[2019-10-20 14:54] LABS: ARTERIAL BLOOD PCO2 10.4 mmHg (35-45); ARTERIAL BLOOD PH 6.77 (7.35-7.45)
--- NOTE | 2019-10-20 14:57 | RADIOLOGY REPORT (SQ) ---
EXAM DESCRIPTION: CHEST SINGLE VIEW IMAGES COMPLETED DATE/TIME: 10/20/2019 2:42 pm REASON FOR STUDY: AMS COMPARISON: 09/25/2019 and 05/10/2019 TECHNIQUE: Single frontal radiographic view of the chest acquired. NUMBER OF VIEWS: One view. LIMITATIONS: None. FINDINGS: LUNGS AND PLEURA: No pneumothorax. No consolidation or pleural effusion. MEDIASTINUM AND HILAR STRUCTURES: Stable. Similar double density over the lower right paraspinal reg ion consistent with posterior mediastinal soft tissue fullness. HEART AND VASCULAR STRUCTURES: Stable. BONES: No acute findings. HARDWARE: None in the chest. OTHER: No other significant finding. IMPRESSION: NO ACUTE FINDINGS. TECHNICAL DOCUMENTATION: JOB ID: [id number] [id number] 2010 [employer]- All Rights Reserved Reading location - IP/workstation name: [email or web address]
[2019-10-20 15:00] LABS: CARBON DIOXIDE < 5 mmol/L (22-30); GLUCOSE 619 mg/dL (75-110); POTASSIUM 7.4 mmol/L (3.6-5.0)
[2019-10-20 15:07] LABS: APPEARANCE,URINE SLIGHTLY-CLOUDY; BILIRUBIN,URINE NEGATIVE (NEGATIVE); COLOR,URINE YELLOW; GLUCOSE, URINE >=500 mg/dL (NEGATIVE); KETONES,URINE 80 mg/dL (NEGATIVE); LEUKOCYTE ESTERASE,URINE NEGATIVE (NEGATIVE); NITRITE,URINE NEGATIVE (NEGATIVE); PROTEIN,URINE 100 mg/dL (NEGATIVE); URINE SPECIFIC GRAVITY 1.018; UROBILINOGEN,URINE NEGATIVE mg/dL (<2.0)
[2019-10-20] MEDS ORDERED: INSULIN REG, HUMAN 100 UNIT/ML 3 ML VIAL (PYX) IV ONE (15:10)
[2019-10-20] MEDS ORDERED: PIPERACILLIN/TAZOBACTAM 3.375 GM VIAL IV ONE (15:10)
[2019-10-20] MEDS ORDERED: NORMAL SALINE 100 ML with INSULIN REGULAR, HUMAN 100 UNIT IV PRN ×2 (15:11)
[2019-10-20 15:14] LABS: MEAN CORPUSCULAR VOLUME 89 fl (80-97)
--- NOTE | 2019-10-20 15:14 | RADIOLOGY REPORT (SQ) ---
EXAM DESCRIPTION: CT HEAD WITHOUT IMAGES COMPLETED DATE/TIME: 10/20/2019 2:56 pm REASON FOR STUDY: ams COMPARISON: 06/19/2016 TECHNIQUE: Axial images acquired through the brain without intravenous contrast. Images reviewed wit h bone, brain and subdural windows. Images stored on PACS. All CT scanners at this facility use dose modulation, iterative reconstruction, and/or weight based d osing when appropriate to reduce radiation dose to as low as reasonably achievable (ALARA). [facility]: Dose Right [facility]: CareDose [facility]: Dose Right [facility]: Teradose 4D [facility]: Smart ArthaYantra RADIATION DOSE: CT Rad equipment meets quality standard of care and radiation dose reduction techniq ues were employed. CTDIvol: 53.2 mGy. DLP: 937 mGy-cm.. LIMITATIONS: None. FINDINGS: VENTRICLES: Normal size and contour. CEREBRUM: No masses. No hemorrhage. No midline shift. Age appropriate white matter. No evidence for a cute infarction. CEREBELLUM: No masses. No hemorrhage. No alteration of density. No evidence for acute infarction. EXTRA-AXIAL SPACES: No fluid collections. ORBITS AND GLOBE: No intra- or extraconal masses. Normal contour of globe without masses. CALVARIUM: No fracture. PARANASAL SINUSES: No fluid or mucosal thickening. SOFT TISSUES: No mass or hematoma. OTHER: No other significant finding. IMPRESSION: NO ACUTE INTRACRANIAL FINDINGS. EVIDENCE OF ACUTE STROKE: NO. TECHNICAL DOCUMENTATION: JOB ID: [id number] [place]-[id number] Quality ID # [id number]: Final reports with documentation of one or more dose reduction techniques (e.g., Au tomated exposure control, adjustment of the mA and/or kV according to patient size, use of iterative reconstruction technique) 2010 [employer]- All Rights Reserved Reading location - IP/workstation name: [email or web address]
[2019-10-20 15:19] LABS: ABSOLUTE LYMPHOCYTES# (MANUAL) 2.9 10^3/uL (0.5-4.7); BASOPHILS % (MANUAL) 0 % (0-2); EOSINOPHILS % (MANUAL) 0 % (0-6); LYMPHOCYTES % (MANUAL) 10 % (13-45); MONOCYTES % (MANUAL) 7 % (3-13); SEGMENTED NEUTROPHILS % (MAN) 83 % (42-78); TOTAL CELLS COUNTED 100
[2019-10-20 15:21] LABS: ANISOCYTOSIS 3+; PLATELET COMMENT ADEQUATE; TOXIC VACUOLATION PRESENT
[2019-10-20] MEDS ORDERED: SODIUM BICARBONATE 8.4% INJ 50 MEQ/50 ML DISP.SYRIN IV ONE ×2 (15:23)
[2019-10-20 15:27] LABS: URINE AMPHETAMINES SCREEN NEGATIVE; URINE BARBITURATES SCREEN NEGATIVE; URINE BENZODIAZEPINES SCREEN NEGATIVE; URINE COCAINE SCREEN NEGATIVE; URINE MARIJUANA (THC) SCREEN NEGATIVE; URINE METHADONE SCREEN NEGATIVE; URINE PHENCYCLIDINE SCREEN NEGATIVE
[2019-10-20] MEDS ORDERED: INSULIN REG, HUMAN 100 UNIT/ML 3 ML VIAL (PYX) ONE (15:33)
[2019-10-20] MEDS ORDERED: ONDANSETRON HCL INJ/PF 4 MG/2 ML SDV IV PRN (15:47)
[2019-10-20] MEDS ORDERED: NORMAL SALINE 1000 ML 1,000 ML IV PRN (15:47)
[2019-10-20] MEDS ORDERED: ACETAMINOPHEN 650 MG SUPP.RECT PR PRN (15:47)
[2019-10-20] MEDS ORDERED: GLUCAGON,HUMAN RECOMB 1 MG INJ IM PRN (15:54)
[2019-10-20] MEDS ORDERED: DEXTROSE 40% GEL 15 GM TUBE PO PRN ×2 (15:54)
[2019-10-20] MEDS ORDERED: DEXTROSE 50%-WATER 25 GM/50 ML DISP.SYRIN IV PRN ×2 (15:54)
[2019-10-20 16:24] LABS: INTERNATIONAL RATION (INR) 1.42; PROTHROMBIN TIME 17.5 SEC (11.4-15.4)
[2019-10-20 16:25] LABS: PARTIAL THROMBOPLASTIN TIME 29.2 SEC (23.5-35.8)
[2019-10-20 16:39] LABS: BLOOD UREA NITROGEN 22 mg/dL (7-20); CHLORIDE 111 mmol/L (98-107)
[2019-10-20 16:50] LABS: GLUCOSE 558 mg/dL (75-110); POTASSIUM 5.9 mmol/L (3.6-5.0)
[2019-10-20 16:51] LABS: CARBON DIOXIDE < 5 mmol/L (22-30)
--- NOTE | 2019-10-20 17:22 | CRITICAL CARE ADMISSION REPORT ---
HPI Date:: 10/20/19 Time:: 16:00 Reason for ICU Reason:: Severe DKA Admission Date/Time & PCP: Admission Date/Time: 10/20/19 16:11 Primary Care Provider: CHANNING PEACOCK HPI: This patient is a 19 yo man with DM-I and multiple admissions for DKA, last September 25, 2019.He was found by his sister today moaning and not responding appropriately. He was brought to the ED where he was found in DKA with a bicarb < 5, pH 6.8 and BG 619. He is on his 3rd Liter of fluid. Insulin drip on after a 10 U bolus. K is down to 5.4, was at 7.4. He is protecting airway but Kussmal breathing. He has done this several times, last 3 weeks ago and signed himself out. He went out with friends last night may have drank, a hx of heroin but his tox screen was clear of both alcohol and opiates. History obtained from:: Old records and Dr Tinajero in ED - Diagnosis/Plan (1) Diabetic ketoacidosis Qualifiers: Diabetes mellitus type: type 1 Diabetes mellitus complication detail: without coma Qualified Code(s): E10.10 - Type 1 diabetes mellitus with ketoacidosis without coma Is this a current diagnosis for this admission?: Yes Plan: Keep insulin drip until gap is closed. NPO until then. Continue IVF. He needs the ICU for severe acodosis. (2) Hyperkalemia Is this a current diagnosis for this admission?: Yes Plan: Initially 7.4 now 5.4, resolving. He will likely need potassium replacement (3) Hypothermia Qualifiers: Encounter type: initial encounter Qualified Code(s): T68.XXXA - Hypothermia, initial encounter Is this a current diagnosis for this admission?: Yes Plan: His temperature was 92 on arrival. Stop Imer hugger when he is 95-96 degrees. Plan Summary: Continue routine DKA treatment Past Medical History Pulmonary Medical History: Reports: Asthma Endocrine Medical History: Reports: Diabetes Mellitus Type 1 Psychiatric Medical History: Denies: Depression Social/Family History - Social History Smoking Status: Unknown if Ever Smoked Frequency of Alcohol Use: None Hx Recreational Drug Use: Yes Drugs: Heroin Hx Prescription Drug Abuse: No - Medication/Allergies Home Medications: Insulin NPH Hum/Reg Insulin Hm [Novolin 70-30 Flexpen] 0 unit SQ .SLIDING SCALE 07/26/19 Allergies/Adverse Reactions: No Known Allergies Allergy (Verified 09/25/19 03:38) Review of Systems ROS unobtainable: Due to mental status Physical Exam Vital Signs: Temp Pulse Resp BP Pulse Ox 92.2 F L 86 22 H 153/78 H 100 10/20/19 14:56 10/20/19 14:56 10/20/19 16:01 10/20/19 16:01 10/20/19 16:01 Intake & Output 10/19/19 10/20/19 10/21/19 06:59 06:59 06:59 Intake Total 2000 Output Total 700 Balance 1300 Weight 44.543 kg Weight/Height Weight 44.543 kg General appearance: PRESENT: mild distress, thin Head exam: PRESENT: atraumatic, normocephalic Eye exam: PRESENT: conjunctiva pink, EOMI, PERRLA. ABSENT: scleral icterus Ear exam: PRESENT: normal external ear exam Mouth exam: PRESENT: dry mucosa Respiratory exam: PRESENT: clear to auscultation santhosh, other - Tachypnea improved. ABSENT: rales, rhonchi, wheezes Cardiovascular exam: PRESENT: RRR. ABSENT: diastolic murmur, rubs, systolic murmur GI/Abdominal exam: PRESENT: normal bowel sounds, soft. ABSENT: distended, guarding, mass, organolmegaly, rebound, tenderness Rectal exam: PRESENT: deferred Gentrourinary exam: PRESENT: indwelling catheter Extremities exam: PRESENT: full ROM. ABSENT: calf tenderness, clubbing, pedal edema Musculoskeletal exam: PRESENT: normal inspection Neurological exam: PRESENT: altered, CN II-XII grossly intact Skin exam: PRESENT: dry Laboratory/Radiographs Laboratory Results: 10/20/19 13:59 10/20/19 16:00 10/20/19 10/20/19 10/20/19 13:59 14:15 14:15 WBC 28.5 H RBC 5.22 Hgb 12.9 L Hct 46.5 MCV 89 D MCH 24.7 L MCHC 27.7 L RDW 18.0 H Plt Count 428 Seg Neutrophils % Not Reportable Carbonic Acid HCO3/H2CO3 Ratio ABG pH ABG pCO2 ABG pO2 ABG HCO3 ABG O2 Saturation ABG Base Excess FiO2 Sodium 136.6 L Potassium 7.4 H* Chloride 104 Carbon Dioxide < 5 L* Anion Gap Not Reportable BUN 20 Creatinine 1.41 H Est GFR ( Amer) > 60 Glucose 619 H* Lactic Acid 1.8 Calcium 9.6 Magnesium 2.8 H Total Bilirubin 0.6 AST 32 Alkaline Phosphatase 186 H Total Protein 7.8 Albumin 4.5 Urine Color Urine Appearance Urine pH Ur Specific [place] Urine Protein Urine Glucose (UA) Urine Ketones Urine Blood Urine Nitrite Ur Leukocyte Esterase Urine WBC (Auto) Urine RBC (Auto) 10/20/19 10/20/19 10/20/19 14:24 14:44 16:00 WBC RBC Hgb Hct MCV MCH MCHC RDW Plt Count Seg Neutrophils % Carbonic Acid 0.31 L HCO3/H2CO3 Ratio 4:1 ABG pH 6.77 L* ABG pCO2 10.4 L* ABG pO2 145.7 H ABG HCO3 1.5 L ABG O2 Saturation 95.9 ABG Base Excess -32.6 FiO2 ROOM AIR Sodium 138.5 Potassium 5.9 H D Chloride 111 H Carbon Dioxide < 5 L* Anion Gap Not Reportable BUN 22 H Creatinine 1.26 H Est GFR ( Amer) > 60 Glucose 558 H* Lactic Acid Calcium 8.0 L Magnesium Total Bilirubin AST Alkaline Phosphatase Total Protein Albumin Urine Color YELLOW Urine Appearance SLIGHTLY-CLOUDY Urine pH 5.0 Ur Specific [place] 1.018 Urine Protein 100 H Urine Glucose (UA) >=500 H Urine Ketones 80 H Urine Blood SMALL H Urine Nitrite NEGATIVE Ur Leukocyte Esterase NEGATIVE Urine WBC (Auto) 2 Urine RBC (Auto) 1 10/20/19 10/20/19 14:15 14:15 Creatine Kinase 71 Troponin I < 0.012 Impressions: Head CT 10/20/19 00:00 IMPRESSION: NO ACUTE INTRACRANIAL FINDINGS. EVIDENCE OF ACUTE STROKE: NO. Chest X-Ray 10/20/19 14:00 IMPRESSION: NO ACUTE FINDINGS. EKG: NSR without ischemia All labs, radiographs, diagnostic studies and EKGs were personally reviewed: Yes In addition, reports of radiographic and diagnostic studies were read: Yes Critical Time Critical Time (minutes): 40 -: The care of a critically ill patient is dynamic. This note represents a static moment in the admission process. Orders and treatments may be given simultaneously and urgently, and time is not community representative of the treatment pr ocess. This patient requires Critical Care secondary to life threatening organ or limb dysfunction. Without Critical Care services, the patient is at risk for increased mortality and morbidity.
[2019-10-20] MEDS ORDERED: FAMOTIDINE INJ/PF 20 MG/2 ML SDV IV ONE ×2 (18:30→19:30)
[2019-10-20] MEDS: FAMOTIDINE INJ/PF 20 MG/2 ML SDV IV SCH ×2 (18:35→21:02)
[2019-10-20] MEDS: ENOXAPARIN SODIUM INJ 40 MG/0.4 ML DISP.SYRIN SUBCUT SCH (18:35)
[2019-10-20 18:57] LABS: BLOOD UREA NITROGEN 22 mg/dL (7-20); CALCIUM 8.5 mg/dL (8.4-10.2); CHLORIDE 113 mmol/L (98-107); POTASSIUM 5.8 mmol/L (3.6-5.0)
[2019-10-20 19:13] LABS: CARBON DIOXIDE < 5 mmol/L (22-30); GLUCOSE 422 mg/dL (75-110)
--- NOTE | 2019-10-20 19:21 | EKG REPORT ---
SEVERITY:- ABNORMAL ECG - SINUS RHYTHM NONSPECIFIC INTRAVENTRICULAR CONDUCTION DELAY : Confirmed by: Kip Dobbins 20-Oct-2019 19:20:29
[2019-10-20] MEDS ORDERED: ENOXAPARIN SODIUM INJ 40 MG/0.4 ML DISP.SYRIN SUBCUT ONE (19:30)
[2019-10-20 22:49] LABS: BLOOD UREA NITROGEN 24 mg/dL (7-20); CALCIUM 9.2 mg/dL (8.4-10.2); CHLORIDE 120 mmol/L (98-107); GLUCOSE 314 mg/dL (75-110); POTASSIUM 5.4 mmol/L (3.6-5.0)
[2019-10-20 22:50] LABS: CARBON DIOXIDE < 5 mmol/L (22-30)
[2019-10-21] MEDS: DEXTROSE 5%-NORMAL SALINE 1,000 ML IV PRN ×2 (00:12→05:20)
[2019-10-21] MEDS: NORMAL SALINE 100 ML with INSULIN REGULAR, HUMAN 100 UNIT IV PRN ×4 (00:44→08:55)
[2019-10-21 01:04] LABS: ANION GAP 19 (5-19); BLOOD UREA NITROGEN 24 mg/dL (7-20); CHLORIDE 116 mmol/L (98-107); GLUCOSE 137 mg/dL (75-110); POTASSIUM 4.6 mmol/L (3.6-5.0)
[2019-10-21 01:08] LABS: CALCIUM 9.2 mg/dL (8.4-10.2); CARBON DIOXIDE 6 mmol/L (22-30)
[2019-10-21 04:24] LABS: HEMOGLOBIN 12.3 g/dL (13.5-17.0); MEAN CORPUSCULAR HEMOGLOBIN 24.2 pg (27.0-33.4); MEAN CORPUSCULAR HGB CONC 31.5 g/dL (32.0-36.0); PLATELET COUNT 270 10^3/uL (150-450); RED BLOOD COUNT 5.07 10^6/uL (4.35-5.55); RED CELL DISTRIBUTION WIDTH 17.4 % (11.5-14.0); WHITE BLOOD COUNT 19.9 10^3/uL (4.0-10.5)
[2019-10-21 04:40] LABS: ANION GAP 14 (5-19); BLOOD UREA NITROGEN 23 mg/dL (7-20); CALCIUM 9.4 mg/dL (8.4-10.2); CARBON DIOXIDE 12 mmol/L (22-30); CHLORIDE 116 mmol/L (98-107); GLUCOSE 102 mg/dL (75-110); POTASSIUM 4.1 mmol/L (3.6-5.0)
[2019-10-21 04:51] LABS: ABSOLUTE LYMPHOCYTES# (MANUAL) 0.8 10^3/uL (0.5-4.7); ABSOLUTE MONOCYTES # (MANUAL) 0.4 10^3/uL (0.1-1.4); BASOPHILS % (MANUAL) 0 % (0-2); EOSINOPHILS % (MANUAL) 0 % (0-6); LYMPHOCYTES % (MANUAL) 4 % (13-45); MONOCYTES % (MANUAL) 2 % (3-13); SEGMENTED NEUTROPHILS % (MAN) 94 % (42-78); TOTAL CELLS COUNTED 100
[2019-10-21 04:53] LABS: ANISOCYTOSIS 1+; OVALOCYTES SLIGHT; PLATELET COMMENT ADEQUATE; POIKILOCYTOSIS 1+; TEAR DROP CELLS 1+; TOXIC GRANULATION 1+
[2019-10-21 04:54] LABS: MEAN CORPUSCULAR VOLUME 77 fl (80-97)
[2019-10-21] MEDS ORDERED: POTASSI CL 20 MEQ/50 ML RIDER 0 MEQ/0 ML RTUPB IV ONE (05:51)
[2019-10-21] MEDS ORDERED: DEXTROSE 5%-NORMAL SALINE 1,000 ML IV PRN (06:44)
[2019-10-21 09:08] LABS: ANION GAP 12 (5-19); BLOOD UREA NITROGEN 22 mg/dL (7-20); CALCIUM 8.9 mg/dL (8.4-10.2); CARBON DIOXIDE 11 mmol/L (22-30); CHLORIDE 118 mmol/L (98-107); GLUCOSE 219 mg/dL (75-110); POTASSIUM 4.4 mmol/L (3.6-5.0)
[2019-10-21] MEDS: INSULIN LISPRO 100 UNIT/ML 3 ML VIAL SUBCUT SCH ×4 (09:47→21:35)
[2019-10-21] MEDS: ENOXAPARIN SODIUM INJ 40 MG/0.4 ML DISP.SYRIN SUBCUT SCH (09:48)
[2019-10-21] MEDS ORDERED: INSULIN GLARGINE,HUM.REC.ANLOG 1,000 UNIT/10 ML VIAL SUBCUT SCH (10:00)
[2019-10-21 13:15] LABS: ABSOLUTE RETICS # 0.111 10^6/uL (0.028-0.122); RETICULOCYTE COUNT (AUTO) 2.34 % (0.66-2.85)
[2019-10-21 13:34] LABS: BLOOD UREA NITROGEN 20 mg/dL (7-20); CALCIUM 8.9 mg/dL (8.4-10.2); CHLORIDE 114 mmol/L (98-107); GLUCOSE 191 mg/dL (75-110); IRON(TIBC) 79.2 ug/dL (49-181); POTASSIUM 3.7 mmol/L (3.6-5.0)
[2019-10-21 15:07] LABS: ANION GAP 15 (5-19)
[2019-10-21] MEDS ORDERED: INSULIN LISPRO 100 UNIT/ML 3 ML VIAL SUBCUT ONE (15:20)
[2019-10-21 15:23] LABS: CARBON DIOXIDE 9 mmol/L (22-30)
[2019-10-21 16:37] LABS: ANION GAP 12 (5-19); BLOOD UREA NITROGEN 20 mg/dL (7-20); CALCIUM 9.5 mg/dL (8.4-10.2); CARBON DIOXIDE 12 mmol/L (22-30); CHLORIDE 113 mmol/L (98-107); GLUCOSE 242 mg/dL (75-110); POTASSIUM 3.2 mmol/L (3.6-5.0)
[2019-10-21] MEDS ORDERED: POTASSIUM CHLORIDE 20 MEQ PACKET PO ONE (17:30)
[2019-10-21] MEDS: POTASSI CL 20 MEQ/50 ML RIDER 20 MEQ/50 ML RTUPB IV SCH ×2 (18:17→20:02)
--- NOTE | 2019-10-21 19:16 | PDOC CRITICAL CARE PROG REPORT ---
General Date:: 10/21/19 ICU Day:: 2 Hospital Day:: 2 Resuscitation Status: Full Code Events in the past 12 to 24 Hours:: Patient admitted for DKA. His gap is now closed and he has been transitioned to Lantus Review of systems relevant to events:: Patient has a 1 year history of type 1 diabetes. He has significant n oncompliance and takes a combination insulin regimen of 70/30--62 units He has not used heroin recently according to his endorsement. Reason for ICU Addmission:: Severe DKA - Medications: Medications reviewed and adjusted accordingly: Yes Physical Exam Vital Signs: Temp Pulse Resp BP Pulse Ox 98.7 F 85 26 H 142/95 H 100 10/21/19 16:00 10/21/19 18:00 10/21/19 18:00 10/21/19 18:00 10/21/19 18:00 Intake & Output 10/20/19 10/21/19 10/22/19 06:59 06:59 06:59 Intake Total 3900 1676 Output Total 2765 885 Balance 1135 791 Weight 52.5 kg Weight/Height Weight 52.5 kg Height 5 ft 9 in General appearance: PRESENT: no acute distress, thin Exam: Not intubated, ill-appearing 19-year-old black male no acute distress Head exam: PRESENT: atraumatic, normocephalic Eye exam: PRESENT: EOMI, PERRLA. ABSENT: conjunctival injection, nystagmus, scleral icterus Ear exam: PRESENT: normal external ear exam Mouth exam: PRESENT: dry mucosa Teeth exam: PRESENT: poor dentation Neck exam: PRESENT: full ROM. ABSENT: JVD, lymphadenopathy, meningismus, tenderness, thyromegaly, tracheal deviation Respiratory exam: PRESENT: accessory muscle use, clear to auscultation santhosh, unlabored. ABSENT: rales, rhonchi, tachypnea, wheezes Cardiovascular exam: PRESENT: RRR, +S1, +S2. ABSENT: systolic murmur Pulses: PRESENT: normal dorsalis pedis pul Vascular exam: PRESENT: normal capillary refill. ABSENT: pallor GI/Abdominal exam: PRESENT: normal bowel sounds, soft, tenderness - Generalized, inconsistent.. ABSENT: ascites, distended, guarding, mass, organolmegaly, rebound Rectal exam: PRESENT: deferred Gentrourinary exam: PRESENT: indwelling catheter Extremities exam: ABSENT: pedal edema Musculoskeletal exam: ABSENT: deformity, dislocation Neurological exam: PRESENT: oriented to person, oriented to place, oriented to time, oriented to situation, CN II-XII grossly intact. ABSENT: motor sensory deficit Psychiatric exam: PRESENT: flat affect Skin exam: PRESENT: dry, intact, warm. ABSENT: cyanosis, rash Tubes/Lines: PRESENT: Other - Heath type urinary catheter Laboratory/Radiographs Laboratory Results: 10/21/19 03:55 10/21/19 16:00 10/20/19 10/20/19 10/20/19 18:30 20:25 20:25 WBC RBC Hgb Hct MCV MCH MCHC RDW Plt Count Seg Neutrophils % Retic Count (auto) Sodium 141.0 145.5 H Potassium 5.8 H 5.4 H Chloride 113 H 120 H Carbon Dioxide < 5 L* < 5 L* Anion Gap Not Reportable BUN 22 H 24 H Creatinine 1.13 1.11 Est GFR ( Amer) > 60 > 60 Glucose 422 H* 314 H Lactic Acid 0.8 Calcium 8.5 9.2 Iron TIBC % Saturation Ferritin Ammonia Vitamin B12 Folate [facility] 10/21/19 10/21/19 10/21/19 00:34 03:55 03:55 WBC 19.9 H RBC 5.07 Hgb 12.3 L Hct 39.0 MCV 77 L D MCH 24.2 L MCHC 31.5 L RDW 17.4 H Plt Count 270 Seg Neutrophils % Not Reportable Retic Count (auto) Sodium 140.6 142.3 Potassium 4.6 4.1 Chloride 116 H 116 H Carbon Dioxide 6 L* 12 L Anion Gap 19 14 BUN 24 H 23 H Creatinine 0.85 0.79 Est GFR ( Amer) > 60 > 60 Glucose 137 H 102 Lactic Acid Calcium 9.2 9.4 Iron TIBC % Saturation Ferritin Ammonia Vitamin B12 Folate [facility] 10/21/19 10/21/19 10/21/19 08:36 12:58 12:58 WBC RBC Hgb Hct MCV MCH MCHC RDW Plt Count Seg Neutrophils % Retic Count (auto) Sodium 140.7 137.7 Potassium 4.4 3.7 Chloride 118 H 114 H Carbon Dioxide 11 L 9 L* Anion Gap 12 15 BUN 22 H 20 Creatinine 0.72 0.69 Est GFR ( Amer) > 60 > 60 Glucose 219 H 191 H Lactic Acid Calcium 8.9 8.9 Iron 79.2 TIBC 223 L % Saturation 36 Ferritin Ammonia < 8.7 L Vitamin B12 932.0 H Folate 11.20 TSH 10/21/19 10/21/19 10/21/19 12:58 12:58 12:58 WBC RBC Hgb Hct MCV MCH MCHC RDW Plt Count Seg Neutrophils % Retic Count (auto) 2.34 Sodium Potassium Chloride Carbon Dioxide Anion Gap BUN Creatinine Est GFR ( Amer) Glucose Lactic Acid Calcium Iron TIBC % Saturation Ferritin 1000.00 H Ammonia Vitamin B12 Folate TSH 0.49 10/21/19 16:00 WBC RBC Hgb Hct MCV MCH MCHC RDW Plt Count Seg Neutrophils % Retic Count (auto) Sodium 137.3 Potassium 3.2 L Chloride 113 H Carbon Dioxide 12 L Anion Gap 12 BUN 20 Creatinine 0.76 Est GFR ( Amer) > 60 Glucose 242 H Lactic Acid Calcium 9.5 Iron TIBC % Saturation Ferritin Ammonia Vitamin B12 Folate TSH 10/20/19 10/20/19 14:15 14:15 Creatine Kinase 71 Troponin I < 0.012 Impressions: Head CT 10/20/19 00:00 IMPRESSION: NO ACUTE INTRACRANIAL FINDINGS. EVIDENCE OF ACUTE STROKE: NO. Chest X-Ray 10/20/19 14:00 IMPRESSION: NO ACUTE FINDINGS. All labs, radiographs, diagnostic studies and EKGs were personally reviewed: Yes In addition, reports of radiographic and diagnostic studies were read: Yes Assessment and Plan - Diagnosis (1) DKA, type 1, not at goal Is this a current diagnosis for this admission?: Yes (2) Medical non-compliance Is this a current diagnosis for this admission?: Yes (3) Metabolic acidosis with normal anion gap and bicarbonate losses Is this a current diagnosis for this admission?: Yes Plan Summary: Patient's anion gap has closed and he now has a non-anion gap metabolic acidosis most likely from sodium chloride. We will start long-acting insulin. He will need extensive training and would recommend repeat moving 70/30 insulin dosing. Will follow subcutaneous insulin and replace electrolytes as needed. Patient has a history of leaving AGAINST MEDICAL ADVICE and will be attempting to help him gain better control of his diabetes. Continue supportive care and observation of his metabolic status Critical Time Critical Time (minutes): 40 Level of Care: ICU -: 1. The care of a critical patient is a dynamic process. This note is a chemical sales representative synopsis but static in nature. The timeframe for treatments given in order is not necessarily the actual time these treatments may have been done. 2. This patient requires critical care secondary to ongoing requirements for therapy not offered or safe outside the critical care environment. Transfer to a lower level of care will result in altered life or limb morbidity and mort ality. 3. Multidisciplinary rounds completed. 4. ABCDE bundle addressed.
[2019-10-21 20:20] LABS: ANION GAP 5 (5-19); BLOOD UREA NITROGEN 18 mg/dL (7-20); CALCIUM 8.9 mg/dL (8.4-10.2); CARBON DIOXIDE 15 mmol/L (22-30); CHLORIDE 115 mmol/L (98-107); GLUCOSE 180 mg/dL (75-110)
[2019-10-21 20:45] LABS: POTASSIUM 4.3 mmol/L (3.6-5.0)
[2019-10-22 01:15] LABS: ANION GAP 8 (5-19); BLOOD UREA NITROGEN 15 mg/dL (7-20); CALCIUM 9.4 mg/dL (8.4-10.2); CARBON DIOXIDE 14 mmol/L (22-30); CHLORIDE 116 mmol/L (98-107); GLUCOSE 181 mg/dL (75-110); POTASSIUM 3.9 mmol/L (3.6-5.0)
[2019-10-22] MEDS: INSULIN LISPRO 100 UNIT/ML 3 ML VIAL SUBCUT SCH ×4 (02:00→17:35)
[2019-10-22] MEDS ORDERED: KETOROLAC TROMETHAMINE INJ/PF 30 MG/1 ML SDV IV ONE ×2 (03:00→08:45)
[2019-10-22 04:26] LABS: ABSOLUTE MONOCYTES (AUTO) 0.7 10^3/uL (0.1-1.4); ABSOLUTE NEUT (AUTO) 7.9 10^3/uL (1.7-8.2); BASOPHILS % (AUTO) 0.3 % (0-2); EOSINOPHILS % (AUTO) 0.1 % (0-6); HEMATOCRIT 35.2 % (37.9-51.0); HEMOGLOBIN 11.5 g/dL (13.5-17.0); LYMPHOCYTES % (AUTO) 10.1 % (13-45); MEAN CORPUSCULAR HEMOGLOBIN 24.4 pg (27.0-33.4); MEAN CORPUSCULAR HGB CONC 32.7 g/dL (32.0-36.0); MEAN CORPUSCULAR VOLUME 75 fl (80-97); MONOCYTES % (AUTO) 6.8 % (3-13); PLATELET COUNT 246 10^3/uL (150-450); RED BLOOD COUNT 4.72 10^6/uL (4.35-5.55); RED CELL DISTRIBUTION WIDTH 17.1 % (11.5-14.0); SEGMENTED NEUTROPHILS % (AUTO) 82.7 % (42-78); TOTAL CELLS COUNTED % (AUTO) 100 %; WHITE BLOOD COUNT 9.6 10^3/uL (4.0-10.5)
[2019-10-22 04:41] LABS: INTERNATIONAL RATION (INR) 1.01; PARTIAL THROMBOPLASTIN TIME 25.2 SEC (23.5-35.8); PHOSPHORUS 1.9 mg/dL (2.5-4.5); PROTHROMBIN TIME 13.3 SEC (11.4-15.4)
[2019-10-22 04:42] LABS: ANION GAP 7 (5-19); BLOOD UREA NITROGEN 16 mg/dL (7-20); CALCIUM 9.6 mg/dL (8.4-10.2); CARBON DIOXIDE 16 mmol/L (22-30); CHLORIDE 115 mmol/L (98-107); GLUCOSE 202 mg/dL (75-110); POTASSIUM 3.7 mmol/L (3.6-5.0)
--- NOTE | 2019-10-22 07:57 | PDOC CRITICAL CARE PROG REPORT ---
General Date:: 10/22/19 ICU Day:: 3 Hospital Day:: 3 Resuscitation Status: Full Code Events in the past 12 to 24 Hours:: 10.22.2019: Patient has had an uneventful ICU course. Started on long-acting insulin but mental coverage. His anion gap is closed and non-anion gap metabolic acidosis has improved. 10.21.2019:Patient admitted for DKA. His gap is now closed and he has been transitioned to Lantus Review of systems relevant to events:: 10.22.2019: Patient's only complaint is food slight discomfort in the right lower extremity from the insertion of an interosseous cannula/needle. He no longer endorses abdominal discomfort or pain 10.21.2019: Patient has a 1 year history of type 1 diabetes. He has significant noncompliance and takes a combination insulin regimen of 70/30--62 units He has not used heroin recently according to his endorsement. Reason for ICU Addmission:: Severe DKA - Medications: Medications reviewed and adjusted accordingly: Yes Physical Exam Vital Signs: Temp Pulse Resp BP Pulse Ox 98.1 F 85 26 H 142/95 H 100 10/22/19 04:00 10/21/19 19:00 10/21/19 18:00 10/21/19 18:00 10/21/19 18:00 Intake & Output 10/21/19 10/22/19 10/23/19 06:59 06:59 06:59 Intake Total 3900 1770 Output Total 2765 1735 Balance 1135 35 Weight 52.5 kg 52.9 kg Weight/Height Weight 52.9 kg Height 5 ft 9 in General appearance: PRESENT: no acute distress, disheveled, thin Head exam: PRESENT: atraumatic, normocephalic Eye exam: PRESENT: conjunctiva pink, PERRLA. ABSENT: conjunctival injection, nystagmus, scleral icterus Mouth exam: PRESENT: moist, neck supple, tongue midline Neck exam: ABSENT: carotid bruit, JVD, lymphadenopathy, meningismus, tenderness, thyromegaly, tracheal deviation Respiratory exam: PRESENT: clear to auscultation santhosh, unlabored. ABSENT: accessory muscle use, rales, rhonchi, tachypnea, wheezes Cardiovascular exam: PRESENT: RRR, +S1, +S2. ABSENT: rubs Pulses: PRESENT: +1 pedal pulses bilateral Vascular exam: PRESENT: normal capillary refill. ABSENT: pallor GI/Abdominal exam: PRESENT: normal bowel sounds, soft. ABSENT: ascites, distended, guarding, mass, organolmegaly, rebound, tenderness Rectal exam: PRESENT: deferred Gentrourinary exam: ABSENT: indwelling catheter Extremities exam: PRESENT: tenderness - Right medial tibial. Slightly tender with no erythema. ABSENT: pedal edema Neurological exam: PRESENT: awake, oriented to person, oriented to place, oriented to time, oriented to situation, CN II-XII grossly intact. ABSENT: motor sensory deficit Psychiatric exam: PRESENT: flat affect Focused psych exam: ABSENT: pressured speech, psychomotor agitation, restlessness Skin exam: PRESENT: dry, intact, warm. ABSENT: cyanosis, petechiae, rash Laboratory/Radiographs Laboratory Results: 10/22/19 04:02 10/22/19 04:02 10/21/19 10/21/19 10/21/19 08:36 12:58 12:58 WBC RBC Hgb Hct MCV MCH MCHC RDW Plt Count Seg Neutrophils % Retic Count (auto) Sodium 140.7 137.7 Potassium 4.4 3.7 Chloride 118 H 114 H Carbon Dioxide 11 L 9 L* Anion Gap 12 15 BUN 22 H 20 Creatinine 0.72 0.69 Est GFR ( Amer) > 60 > 60 Glucose 219 H 191 H Calcium 8.9 8.9 Phosphorus Magnesium Iron 79.2 TIBC 223 L % Saturation 36 Ferritin Ammonia < 8.7 L Vitamin B12 932.0 H Folate 11.20 TSH 10/21/19 10/21/19 10/21/19 12:58 12:58 12:58 WBC RBC Hgb Hct MCV MCH MCHC RDW Plt Count Seg Neutrophils % Retic Count (auto) 2.34 Sodium Potassium Chloride Carbon Dioxide Anion Gap BUN Creatinine Est GFR ( Amer) Glucose Calcium Phosphorus Magnesium Iron TIBC % Saturation Ferritin 1000.00 H Ammonia Vitamin B12 Folate TSH 0.49 10/21/19 10/21/19 10/22/19 16:00 19:50 00:38 WBC RBC Hgb Hct MCV MCH MCHC RDW Plt Count Seg Neutrophils % Retic Count (auto) Sodium 137.3 135.4 L 137.8 Potassium 3.2 L 4.3 D 3.9 Chloride 113 H 115 H 116 H Carbon Dioxide 12 L 15 L 14 L Anion Gap 12 5 8 BUN 20 18 15 Creatinine 0.76 0.65 0.61 Est GFR ( Amer) > 60 > 60 > 60 Glucose 242 H 180 H 181 H Calcium 9.5 8.9 9.4 Phosphorus Magnesium Iron TIBC % Saturation Ferritin Ammonia Vitamin B12 Folate TSH 10/22/19 10/22/19 10/22/19 04:02 04:02 04:02 WBC 9.6 RBC 4.72 Hgb 11.5 L Hct 35.2 L MCV 75 L MCH 24.4 L MCHC 32.7 RDW 17.1 H Plt Count 246 Seg Neutrophils % 82.7 H Retic Count (auto) Sodium 138.0 Potassium 3.7 Chloride 115 H Carbon Dioxide 16 L Anion Gap 7 BUN 16 Creatinine 0.68 Est GFR ( Amer) > 60 Glucose 202 H Calcium 9.6 Phosphorus 1.9 L Magnesium 1.9 Iron TIBC % Saturation Ferritin Ammonia Vitamin B12 Folate TSH 10/20/19 10/20/19 14:15 14:15 Creatine Kinase 71 Troponin I < 0.012 Impressions: Head CT 10/20/19 00:00 IMPRESSION: NO ACUTE INTRACRANIAL FINDINGS. EVIDENCE OF ACUTE STROKE: NO. Chest X-Ray 10/20/19 14:00 IMPRESSION: NO ACUTE FINDINGS. All labs, radiographs, diagnostic studies and EKGs were personally reviewed: Yes In addition, reports of radiographic and diagnostic studies were read: Yes Assessment and Plan - Diagnosis (1) DKA, type 1, not at goal Is this a current diagnosis for this admission?: Yes (2) Medical non-compliance Is this a current diagnosis for this admission?: Yes (3) Metabolic acidosis with normal anion gap and bicarbonate losses Is this a current diagnosis for this admission?: Yes Plan Summary: 10.22.2019: Patient has had significant improvement in his overall clinical prese ntation. Both his high anion gap and non-anion gap acidosis have improved. He will need diabetic education. Have increased his Lantus to 24 units/day. He will need instruction on supplemental insulin therapy. I am concerned about his previous history of noncompliance and leaving AGAINST MEDICAL ADVICE. My hope is that with proper education further admissions. At this point is cleared for exertion out of the ICU. He will need at least 24 hours to assure appropriate social and medical circumstances are addressed 10.21.2019: Patient's anion gap has closed and he now has a non-anion gap metabolic acidosis most likely from sodium chloride. We will start long-acting insulin. He will need extensive training and would recommend repeat moving 70/30 insulin dosing. Will follow subcutaneous insulin and replace electrolytes as needed. Patient has a history of leaving AGAINST MEDICAL ADVICE and will be attempting to help him gain better control of his diabetes. Continue supportive care and observation of his metabolic status Critical Time Critical Time (minutes): 0 - [id number] Level of Care: MEDICAL Anticipated discharge: Home Anticipated DC Timeframe: within 36 hours -: 1. The care of a critical patient is a dynamic process. This note is a treasury representative synopsis but static in nature. The timeframe for treatments given in order is not necessarily the actual time these treatments may have been done. 2. This patient requires critical care secondary to ongoing requirements for therapy not offered or safe outside the critical care environment. Transfer to a lower level of care will result in altered life or limb morbidity and mortality. 3. Multidisciplinary rounds completed. 4. ABCDE bundle addressed.
[2019-10-22] MEDS: MAGNESIUM SULFATE/D5W 1 GM/100 ML RTUPB IV SCH ×3 (08:44→12:18)
[2019-10-22] MEDS ORDERED: NORMAL SALINE IV ONE (09:30)
[2019-10-22] MEDS ORDERED: POTASSIUM PHOS M BASIC D BASIC IV ONE (09:30)
[2019-10-22 09:36] LABS: ANION GAP 6 (5-19); BLOOD UREA NITROGEN 18 mg/dL (7-20); CALCIUM 9.6 mg/dL (8.4-10.2); CARBON DIOXIDE 17 mmol/L (22-30); CHLORIDE 113 mmol/L (98-107); GLUCOSE 183 mg/dL (75-110); POTASSIUM 3.6 mmol/L (3.6-5.0)
[2019-10-22] MEDS ORDERED: INSULIN GLARGINE,HUM.REC.ANLOG 1,000 UNIT/10 ML VIAL SUBCUT SCH (10:00)
--- NOTE | 2019-10-22 10:12 | EKG REPORT ---
SEVERITY:- ABNORMAL ECG - SINUS RHYTHM ST ELEVATION SUGGESTS PERICARDITIS VERSUS EARLY REPLOARISATION CHANGES.CORELATE CLINICALLY : Confirmed by: Ese Cyr MD 22-Oct-2019 10:11:37
[2019-10-22] MEDS: ENOXAPARIN SODIUM INJ 40 MG/0.4 ML DISP.SYRIN SUBCUT SCH (11:10)
[2019-10-22] MEDS ORDERED: INSULIN LISPRO 100 UNIT/ML 3 ML VIAL SUBCUT ONE (14:01)
[2019-10-22] MEDS ORDERED: ACETAMINOPHEN 325 MG TABLET ONE (15:26)
[2019-10-22] MEDS ORDERED: ACETAMINOPHEN 325 MG TABLET PO ONE (15:30)
[2019-10-22] MEDS ORDERED: IBUPROFEN 600 MG TABLET PO PRN (17:19)
--- NOTE | 2019-10-22 19:24 | RADIOLOGY REPORT (SQ) ---
EXAM DESCRIPTION: KNEE RIGHT 2 VIEWS IMAGES COMPLETED DATE/TIME: 10/22/2019 6:52 pm REASON FOR STUDY: pain at IO site COMPARISON: None. NUMBER OF VIEWS: Two views. TECHNIQUE: AP and lateral radiographic images acquired of the right knee. LIMITATIONS: None. FINDINGS: MINERALIZATION: Normal. BONES: No acute fracture or dislocation. No worrisome bone lesions. JOINT: No effusion. SOFT TISSUES: No soft tissue swelling. No radio-opaque foreign body. OTHER: No other significant finding. IMPRESSION: NEGATIVE STUDY OF THE RIGHT KNEE. NO RADIOGRAPHIC EVIDENCE OF ACUTE INJURY. TECHNICAL DOCUMENTATION: JOB ID: [id number] 2010 [employer]- All Rights Reserved Reading location - IP/workstation name: [email or web address]
[2019-10-22 20:46] LABS: ANION GAP 9 (5-19); BLOOD UREA NITROGEN 19 mg/dL (7-20); CALCIUM 8.4 mg/dL (8.4-10.2); CARBON DIOXIDE 15 mmol/L (22-30); CHLORIDE 109 mmol/L (98-107); GLUCOSE 327 mg/dL (75-110); POTASSIUM 3.7 mmol/L (3.6-5.0)
[2019-10-22 20:48] VITALS: BP 149/79
[2019-10-22] MEDS ORDERED: GLUCAGON,HUMAN RECOMB 1 MG INJ IM PRN (22:38)
[2019-10-22] MEDS ORDERED: DEXTROSE 50%-WATER 25 GM/50 ML DISP.SYRIN IV PRN ×2 (22:38)
[2019-10-22] MEDS ORDERED: DEXTROSE 40% GEL 15 GM TUBE PO PRN ×2 (22:38)
--- NOTE | 2019-10-22 22:46 | Progress Note ---
Provider Note Provider Note: Patient is downgraded to the telemetry floor after admission to the telemarketer team for altered mental status related to DKA. The patient's DKA has subsequently resolved and he is now orientated x 4. Per nursing, complaining of persistent lower leg pain to the I/O site. H&P, progress notes, nursing notes, Vital Signs, lab results, imagining, EKG, and orders reviewed. Agree with plan of care as established by the previous provider. In addition, Rt knee XRAY was obtained; no acute findings to suggest sequela r/t I/O placement. Continue prn tylenol. Add prn Motrin; reportedly had excellent relief of discomfort with IV Toradol earlier today. May use ice or heat per patient preference. Change DM monitoring to accu-cheks ACHS with Humalog for sliding scale coverage. Continue Lantus 25 units daily. Consult screening unit registered nurse and patient educator for diabetic teaching. Start Lisinopril for HTN. Anticipate d/c home within 24-48 hrs.
[2019-10-23] MEDS ORDERED: INSULIN LISPRO 100 UNIT/ML 3 ML VIAL SUBCUT SCH (08:00)
[2019-10-23] MEDS ORDERED: INSULIN GLARGINE,HUM.REC.ANLOG 1,000 UNIT/10 ML VIAL SUBCUT SCH (10:00)
[2019-10-23] MEDS ORDERED: LISINOPRIL 10 MG TABLET PO SCH (10:00)
== END 2019-10-22 22:38 | disposition left against medical advice (07) | DRG 639 ==
LOC: ER 13:46 → EH 16:11 → ICU 18:45 → 4N 10-22 16:08
PROVIDERS: ADMIT Anesthesiology; ATTEND Internal Medicine
DX: E10.10 Type 1 diabetes mellitus with ketoacidosis without coma (principal); E87.5 Hyperkalemia; R68.0 Hypothermia, not associated with low environmental temperature; F17.200 Nicotine dependence, unspecified, uncomplicated; Z79.4 Long term (current) use of insulin; Z91.14 Patient's other noncompliance with medication regimen; Z82.49 Family history of ischemic heart disease and other diseases of the circulatory system
CPT/HCPCS: 36415; 51701; 70450; 71045; 80048; 80053; 80307; 81001; 82140; 82550; 82607; 82728; 82746; 82803; 82962; 83540; 83550; 83605; 83735; 84100; 84443; 84484; 85025; 85045; 85610; 85730; 87040; 87086; 93005; 93010; 96360; 96365; 99221; 99291; J1650; J1815; J1885; J2543; J3475; J3480; J3490; J7030; J7042; J7050; S0028

== ENCOUNTER 2019-10-28 02:33 | Inpatient (IN) | payer SELFPAY ==
[2019-10-28] MEDS ORDERED: NORMAL SALINE 1000 ML 1,000 ML IV ONE ×2 (03:03→04:44)
[2019-10-28 04:19] LABS: ABSOLUTE BASOPHILS # (AUTO) 0.1 10^3/uL (0.0-0.2); BASOPHILS % (AUTO) 0.5 % (0-2); HEMOGLOBIN 12.4 g/dL (13.5-17.0); TOTAL CELLS COUNTED % (AUTO) 100 %
[2019-10-28 04:29] LABS: ALBUMIN 5.1 g/dL (3.5-5.0); ALKALINE PHOSPHATASE 215 U/L (38-126); ASPARTATE AMINO TRANSFERASE 47 U/L (17-59); BILIRUBIN,DIRECT 0.2 mg/dL (0.0-0.4); BILIRUBIN,TOTAL 0.8 mg/dL (0.2-1.3); BLOOD UREA NITROGEN 19 mg/dL (7-20); CALCIUM 10.7 mg/dL (8.4-10.2); CHLORIDE 96 mmol/L (98-107)
[2019-10-28 04:34] LABS: ABSOLUTE LYMPHOCYTES (AUTO) 2.7 10^3/uL (0.5-4.7); ABSOLUTE MONOCYTES (AUTO) 1.4 10^3/uL (0.1-1.4); ABSOLUTE NEUT (AUTO) 14.6 10^3/uL (1.7-8.2); HEMATOCRIT 40.7 % (37.9-51.0); LYMPHOCYTES % (AUTO) 14.3 % (13-45); MEAN CORPUSCULAR HEMOGLOBIN 24.3 pg (27.0-33.4); MEAN CORPUSCULAR HGB CONC 30.4 g/dL (32.0-36.0); MONOCYTES % (AUTO) 7.3 % (3-13); PLATELET COUNT 609 10^3/uL (150-450); RED BLOOD COUNT 5.09 10^6/uL (4.35-5.55); RED CELL DISTRIBUTION WIDTH 15.5 % (11.5-14.0); SEGMENTED NEUTROPHILS % (AUTO) 77.9 % (42-78); WHITE BLOOD COUNT 18.8 10^3/uL (4.0-10.5)
[2019-10-28 04:37] LABS: MEAN CORPUSCULAR VOLUME 80 fl (80-97)
[2019-10-28 04:46] LABS: CARBON DIOXIDE 8 mmol/L (22-30); GLUCOSE 539 mg/dL (75-110)
[2019-10-28] MEDS ORDERED: NORMAL SALINE 100 ML with INSULIN REGULAR, HUMAN 100 UNIT IV PRN ×4 (04:52→10:06)
[2019-10-28] MEDS ORDERED: SODIUM BICARBONATE 8.4% INJ 50 MEQ/50 ML DISP.SYRIN IV ONE (04:55)
--- NOTE | 2019-10-28 05:12 | ER Document Report ---
Entered by JEMIMA DELANEY SCRIBE 10/28/19 0453 Acting as scribe for:FAITH RAUSCH IV, MD ED Blood Sugar Problem - General Chief Complaint: High Blood Sugar Stated Complaint: DIABETIC ISSUES Time Seen by Provider: 10/28/19 04:41 Primary Care Provider: CHANNING PEACOCK MD [Primary Care Provider] - Follow up as needed Mode of Arrival: Wheelchair Information source: Patient, Emergency Med Personnel Notes: This 19 year old male patient with a history type 1 diabetes mellitus, multiple admissions for DKA, and medical noncompliance presents to the ED today with complaints of elevated blood sugar. Patient told ED nurse that his brother b rought him to the ED due to altered mental status. He also states that he doesn't have a glucometer at home, but has been taking Humalog daily, last dose was 120 units around 2200 last night per ED nurse. Patient was last admitted to the ICU for DKA on 10/20/2019, but left AMA x2 days later after DKA was resolved and he was downgraded to a medical floor. Dr. Peacock is his PCP. TRAVEL OUTSIDE OF THE [place] IN LAST 30 DAYS: No - Related Data Allergies/Adverse Reactions: No Known Allergies Allergy (Verified 10/22/19 08:01) Home Medications: Humalog Past Medical History - General Information source: [facility] Records - Social History Smoking Status: Current Every Day Smoker Cigarette use (# per day): Yes Chew tobacco use (# tins/day): No Smoking Education Provided: No Frequency of alcohol use: None Drug Abuse: None Family History: Reviewed & Not Pertinent, Hypertension, Other - Lupus Pulmonary Medical History: Reports: Hx Asthma Endocrine Medical History: Reports: Hx Diabetes Mellitus Type 1 Past Surgical History: Reports: Hx Abdominal Surgery - Immunizations Immunizations up to date: Yes Hx Diphtheria, Pertussis, Tetanus Vaccination: Yes Review of Systems - Review of Systems -: Yes ROS unobtainable due to patient's medical condition Physical Exam - Vital signs Vitals: Temp Pulse Resp BP Pulse Ox 97.3 F 118 H 20 132/50 H 100 10/28/19 02:43 10/28/19 02:43 10/28/19 02:43 10/28/19 02:43 10/28/19 02:43 - General General appearance: Other - Somnolent In distress: None - HEENT Head: Normocephalic, Atraumatic Eyes: Normal Pupils: PERRL - Respiratory Respiratory status: Tachypnea Chest status: Nontender Breath sounds: Normal Chest palpation: Normal - Cardiovascular Rhythm: Regular, Tachycardia Heart sounds: Normal auscultation Murmur: No Friction rub: No Gallop: None auscultated - Abdominal Inspection: Normal Distension: No distension Bowel sounds: Normal Tenderness: Nontender - Abdomen soft Organomegaly: No organomegaly - Back Back: Normal, Nontender - Extremities General upper extremity: Normal inspection General lower extremity: Normal inspection - Neurological Neuro grossly intact: Yes - Psychological Associated symptoms: Other - Unable to assess due to patient's medical condition - Skin Skin Temperature: Warm Skin Moisture: Dry Skin Color: Normal Course - Vital Signs Vital signs: Temp Pulse Resp BP Pulse Ox 97.3 F 118 H 20 132/50 H 100 10/28/19 02:56 10/28/19 02:43 10/28/19 02:43 10/28/19 02:43 10/28/19 02:43 - Laboratory Result Diagrams: 10/28/19 03:45 10/28/19 03:45 Laboratory results interpreted by me: 10/28/19 10/28/19 03:45 03:45 WBC 18.8 H Hgb 12.4 L MCH 24.3 L MCHC 30.4 L RDW 15.5 H Plt Count 609 H Absolute Neuts (auto) 14.6 H Sodium 134.9 L Chloride 96 L Carbon Dioxide 8 L* Glucose 539 H* Calcium 10.7 H ALT 80 H Alkaline Phosphatase 215 H Total Protein 9.0 H Albumin 5.1 H - Consults Dr. Easley Time consulted: 05:50 - Dr. Easley agreed to admit patient for Dr. Peacock Reason for consultation: 10/28/19 06:01 DKA Critical Care Note - Critical Care Note Total time excluding time spent on procedures (mins): 30 - dka Discharge - Discharge Clinical Impression: Diabetic ketoacidosis Condition: Stable Disposition: ADMITTED OBSERVATION Admitting Provider: [place] Unit Admitted: IMCU Referrals: CHANNING PEACOCK MD [Primary Care Provider] - Follow up as needed I personally performed the services described in the documentation, reviewed and edited the documentation which was dictated to the scribe in my presence, and it accurately records my words and actions.
[2019-10-28] MEDS ORDERED: INSULIN REG, HUMAN 100 UNIT/ML 3 ML VIAL (PYX) ONE (05:55)
[2019-10-28 06:57] LABS: ANION GAP 31 (5-19)
[2019-10-28 07:23] LABS: ARTERIAL BLOOD BASE EXCESS -5.9 mmol/L; ARTERIAL BLOOD H2CO3 1.11 mmol/L (1.05-1.35); ARTERIAL BLOOD HCO3 19.3 mmol/L (20-24); ARTERIAL BLOOD O2 SATURATION 96.6 % (94-98); ARTERIAL BLOOD PCO2 36.8 mmHg (35-45); ARTERIAL BLOOD PH 7.34 (7.35-7.45); ARTERIAL BLOOD PO2 91.2 mmHg (80-100); ARTERIAL BLOOD TOTAL CO2 20.4 mmol/L (23-27)
[2019-10-28 07:26] LABS: ARTERIAL BLOOD FIO2 ROOM AIR
[2019-10-28] MEDS ORDERED: DEXTROSE 5%-1/2 NORMAL SALINE 1,000 ML IV PRN (09:10)
[2019-10-28] MEDS ORDERED: ALBUTEROL SULFATE 0.083% NEB 2.5 MG/3 ML AMPUL NEB PRN (09:59)
[2019-10-28] MEDS ORDERED: DEXTROSE 5%-NORMAL SALINE 1,000 ML IV PRN ×2 (09:59→13:09)
[2019-10-28] MEDS ORDERED: DEXTROSE 50%-WATER 25 GM/50 ML DISP.SYRIN IV PRN ×2 (09:59)
[2019-10-28] MEDS ORDERED: GLUCAGON,HUMAN RECOMB 1 MG INJ SUBCUT PRN (09:59)
[2019-10-28] MEDS ORDERED: ACETAMINOPHEN 325 MG TABLET PO PRN (09:59)
[2019-10-28] MEDS ORDERED: DEXTROSE 40% GEL 15 GM TUBE PO PRN ×2 (09:59)
[2019-10-28] MEDS ORDERED: MAG HYDROX/AL HYDROX/SIMETH SUSP 30 ML UDCUP PO PRN (10:04)
[2019-10-28] MEDS ORDERED: ONDANSETRON HCL INJ/PF 4 MG/2 ML SDV IV PRN (10:04)
[2019-10-28] MEDS ORDERED: PROMETHAZINE HCL INJ 25 MG/1 ML VIAL IV PRN (10:04)
[2019-10-28] MEDS ORDERED: NICOTINE 7 MG/24 HR PATCH.TD24 TD PRN (10:17)
[2019-10-28] MEDS ORDERED: HYDRALAZINE HCL INJ/PF 20 MG/1 ML SDV IV PRN (10:18)
--- NOTE | 2019-10-28 10:25 | PDOC H&P ---
History of Present Illness Admission Date/PCP: 10/28/19 06:39 [facility] Patient complains of: blood sugar problem History of Present Illness: FAITH RAVI is a 19 year old male with a past medical history of uncontrolled insulin-dependent diabetes, multiple admissions for DKA, pancreatitis, asthma, tobacco and substance abuse who presented to the emergency department asthma with complaint of high blood sugar. Evaluation in the emergency department found tachycardia, hypertension, leukocytosis, thrombocytosis, and DKA with sodium 134.9, potassium 5.0, bicarb 8, anion gap 31, glucose 550. He was placed on IV fluids and insulin drip. He is referred to the hospital service for further evaluation management of the above-stated complaints findings. Past Medical History Pulmonary Medical History: Reports: Asthma Endocrine Medical History: Reports: Diabetes Mellitus Type 1 Psychiatric Medical History: Reports: Substance Abuse, Tobacco Dependency Denies: Depression Past Surgical History Past Surgical History: Reports: None Social History Information Source: Patient, [facility] Records Smoking Status: Current Every Day Smoker Electronic Cigarette use?: No Frequency of Alcohol Use: None Hx Recreational Drug Use: Yes Drugs: Heroin Hx Prescription Drug Abuse: No - Advance Directive Resuscitation Status: Full Code Family History Family History: Reviewed & Not Pertinent, Hypertension, Other - Lupus Parental Family History Reviewed: Yes Children Family History Reviewed: Yes Sibling(s) Family History Reviewed.: Yes Medication/Allergy Home Medications: Insulin Lispro [Humalog Kwikpen U-100] 0 units SQ .PERSLIDINGSCALE 10/28/19 Allergies/Adverse Reactions: No Known Allergies Allergy (Verified 10/28/19 07:57) Review of Systems Constitutional: ABSENT: chills, fever(s), headache(s), weight gain, weight loss Eyes: ABSENT: visual disturbances Ears: ABSENT: hearing changes Cardiovascular: ABSENT: chest pain, dyspnea on exertion, edema, orthropnea, palpitations Respiratory: ABSENT: cough, hemoptysis Gastrointestinal: PRESENT: nausea, vomiting. ABSENT: abdominal pain, constipation, diarrhea, hematemesis, hematochezia Genitourinary: ABSENT: dysuria, hematuria Musculoskeletal: ABSENT: joint swelling Integumentary: ABSENT: rash, wounds Neurological: ABSENT: abnormal gait, abnormal speech, confusion, dizziness, focal weakness, syncope Psychiatric: ABSENT: anxiety, depression, homidical ideation, suicidal ideation Endocrine: PRESENT: polydipsia. ABSENT: cold intolerance, heat intolerance, polyuria Hematologic/Lymphatic: ABSENT: easy bleeding, easy bruising Physical Exam Vital Signs: Temp Pulse Resp BP Pulse Ox 97.3 F 118 H 10 L 133/61 H 100 10/28/19 02:56 10/28/19 02:43 10/28/19 09:01 10/28/19 09:01 10/28/19 09:01 Intake & Output 10/27/19 10/28/19 10/29/19 06:59 06:59 06:59 Intake Total 2001 09 Balance 2001 7 Weight 50.7 kg General appearance: PRESENT: no acute distress, disheveled, thin, well-developed Head exam: PRESENT: atraumatic, normocephalic Eye exam: PRESENT: conjunctiva pink, EOMI, PERRLA. ABSENT: scleral icterus Mouth exam: PRESENT: dry mucosa, tongue midline Respiratory exam: PRESENT: clear to auscultation santhosh, symmetrical, unlabored. ABSENT: rales, rhonchi, wheezes Cardiovascular exam: PRESENT: RRR, +S1, +S2. ABSENT: diastolic murmur, rubs, systolic murmur Pulses: PRESENT: normal dorsalis pedis pul Vascular exam: PRESENT: normal capillary refill GI/Abdominal exam: PRESENT: normal bowel sounds, soft. ABSENT: distended, guarding, mass, organolmegaly, rebound, tenderness Rectal exam: PRESENT: deferred Extremities exam: PRESENT: full ROM, pedal edema - +2 pedal edema. ABSENT: calf tenderness, clubbing Neurological exam: PRESENT: alert, awake, oriented to person, oriented to place, oriented to time, oriented to situation, CN II-XII grossly intact, other - Lethargic; wakes easily and will answer to questions and then falls back to sleep. ABSENT: motor sensory deficit Psychiatric exam: PRESENT: appropriate affect, normal mood. ABSENT: homicidal ideation, suicidal ideation Skin exam: PRESENT: dry, intact, warm. ABSENT: cyanosis, rash Results Laboratory Results: 10/28/19 03:45 10/28/19 03:45 10/28/19 10/28/19 10/28/19 03:45 03:45 06:25 WBC 18.8 H RBC 5.09 Hgb 12.4 L Hct 40.7 MCV 80 D MCH 24.3 L MCHC 30.4 L RDW 15.5 H Plt Count 609 H Seg Neutrophils % 77.9 Carbonic Acid Cancelled HCO3/H2CO3 Ratio Cancelled ABG pH Cancelled ABG pCO2 Cancelled ABG pO2 Cancelled ABG HCO3 Cancelled ABG O2 Saturation Cancelled ABG Base Excess Cancelled FiO2 Cancelled Sodium 134.9 L Potassium 5.0 Chloride 96 L Carbon Dioxide 8 L* Anion Gap 31 H BUN 19 Creatinine 1.06 Est GFR ( Amer) > 60 Glucose 539 H* Calcium 10.7 H Magnesium 2.1 Total Bilirubin 0.8 AST 47 Alkaline Phosphatase 215 H Total Protein 9.0 H Albumin 5.1 H 10/28/19 07:07 WBC RBC Hgb Hct MCV MCH MCHC RDW Plt Count Seg Neutrophils % Carbonic Acid 1.11 HCO3/H2CO3 Ratio 17:1 ABG pH 7.34 L ABG pCO2 36.8 ABG pO2 91.2 ABG HCO3 19.3 L ABG O2 Saturation 96.6 ABG Base Excess -5.9 FiO2 ROOM AIR Sodium Potassium Chloride Carbon Dioxide Anion Gap BUN Creatinine Est GFR ( Amer) Glucose Calcium Magnesium Total Bilirubin AST Alkaline Phosphatase Total Protein Albumin Assessment and Plan - Diagnosis (1) Diabetic ketoacidosis Qualifiers: Diabetes mellitus type: type 1 Diabetes mellitus complication detail: without coma Qualified Code(s): E10.10 - Type 1 diabetes mellitus with ketoacidosis without coma Is this a current diagnosis for this admission?: Yes Plan: The patient was placed on IV fluids and insulin drip by ED providers. His glucoses trended down from 550 to 84; insulin drip is placed on hold and IV fluids switched to D5NS. We will obtain stat BMP to evaluate bicarb and anion gap; likely resume insulin drip with continued D5 fluids. He is placed in n.p.o. status. When appropriate, will transition to subcutaneous insulin with clear liquid diet; advancing slowly as tolerated. Antiemetics as needed. Continue serial BMP. Replace electrolytes as indicated. (2) DKA, type 1, not at goal Is this a current diagnosis for this admission?: Yes Plan: A1c >14% Management as above. clinical nurse educator and registered dietitian consulted. Discharge planning consulted. (3) HTN (hypertension) Qualifiers: Hypertension type: essential hypertension Qualified Code(s): I10 - Essential (primary) hypertension Is this a current diagnosis for this admission?: Yes Plan: Does not appear that patient is on medication at home for maintenance of blood pressure. IV hydralazine as needed for blood pressure control. We will start on p.o. lisinopril. (4) Tobacco use Is this a current diagnosis for this admission?: Yes Plan: Cessation encouraged. Nicotine replacement therapies provided. (5) Leukocytosis Qualifiers: Leukocytosis type: unspecified Qualified Code(s): D72.829 - Elevated white blood cell count, unspecified Is this a current diagnosis for this admission?: Yes Plan: Likely secondary to DKA. Patient is afebrile without evidence of infectious process. We will obtain urinalysis to rule out UTI. - Time Time Spent with patient: 35 or more minutes Medications reviewed and adjusted accordingly: Yes Anticipated Discharge Disposition: Home, Self Care Anticipated Discharge Timeframe: other - Inpatient Certification Based on my medical assessment, after consideration of the patient's comorbidities, presenting symptoms, or acuity I expect that the services needed warrant INPATIENT care.: Yes I certify that my determination is in accordance with my understanding of Medicare's requirements for reasonable and necessary INPATIENT services [42 CFR 412.3e].: Yes Medical Necessity: Need For IV Fluids, Risk of Complication if Not Cared For in Hospital
[2019-10-28 11:58] LABS: BLOOD UREA NITROGEN 14 mg/dL (7-20); CHLORIDE 101 mmol/L (98-107)
[2019-10-28 12:15] LABS: ANION GAP 5 (5-19)
[2019-10-28 12:41] LABS: CARBON DIOXIDE 24 mmol/L (22-30)
[2019-10-28 12:49] LABS: GLUCOSE 495 mg/dL (75-110)
[2019-10-28 12:50] LABS: POTASSIUM 2.9 mmol/L (3.6-5.0)
[2019-10-28] MEDS ORDERED: POTASSI CL 20 MEQ/50 ML RIDER 20 MEQ/50 ML RTUPB IV SCH (13:15)
[2019-10-28 13:52] LABS: HEMATOCRIT 32.6 % (37.9-51.0); HEMOGLOBIN 10.7 g/dL (13.5-17.0); MEAN CORPUSCULAR HEMOGLOBIN 24.2 pg (27.0-33.4); MEAN CORPUSCULAR HGB CONC 32.7 g/dL (32.0-36.0); PLATELET COUNT 414 10^3/uL (150-450); RED CELL DISTRIBUTION WIDTH 15.2 % (11.5-14.0); WHITE BLOOD COUNT 13.3 10^3/uL (4.0-10.5)
[2019-10-28 13:59] LABS: MEAN CORPUSCULAR VOLUME 74 fl (80-97)
[2019-10-28] MEDS ORDERED: POTASSIUM CHLORIDE 10 MEQ TABLET.ER PO ONE (14:00)
[2019-10-28] MEDS: HEPARIN SOD (PORCINE) 5,000 UNIT/ML 1 ML VIAL SUBCUT SCH ×2 (14:52→21:35)
[2019-10-28 18:52] LABS: BLOOD UREA NITROGEN 14 mg/dL (7-20); CALCIUM 8.4 mg/dL (8.4-10.2); CARBON DIOXIDE 26 mmol/L (22-30); GLUCOSE 122 mg/dL (75-110); POTASSIUM 3.5 mmol/L (3.6-5.0)
[2019-10-28 18:57] LABS: CHLORIDE 102 mmol/L (98-107)
[2019-10-28 19:01] LABS: ANION GAP 4 (5-19)
[2019-10-28] MEDS: NORMAL SALINE 1000 ML 1,000 ML IV PRN (20:45)
[2019-10-28 21:20] LABS: APPEARANCE,URINE CLEAR; BILIRUBIN,URINE NEGATIVE (NEGATIVE); COLOR,URINE YELLOW; GLUCOSE, URINE >=500 mg/dL (NEGATIVE); KETONES,URINE 20 mg/dL (NEGATIVE); LEUKOCYTE ESTERASE,URINE NEGATIVE (NEGATIVE); NITRITE,URINE NEGATIVE (NEGATIVE); PROTEIN,URINE 30 mg/dL (NEGATIVE); URINE SPECIFIC GRAVITY 1.013; UROBILINOGEN,URINE NEGATIVE mg/dL (<2.0)
[2019-10-28] MEDS: INSULIN LISPRO 100 UNIT/ML 3 ML VIAL SUBCUT SCH (21:35)
[2019-10-28 21:37] LABS: URINE BARBITURATES SCREEN NEGATIVE; URINE BENZODIAZEPINES SCREEN NEGATIVE; URINE COCAINE SCREEN NEGATIVE; URINE MARIJUANA (THC) SCREEN NEGATIVE; URINE METHADONE SCREEN NEGATIVE; URINE PHENCYCLIDINE SCREEN NEGATIVE
[2019-10-28 21:41] LABS: URINE AMPHETAMINES SCREEN UNCONFIRMED POSITIVE
[2019-10-29 00:53] LABS: BLOOD UREA NITROGEN 12 mg/dL (7-20); CALCIUM 8.4 mg/dL (8.4-10.2); GLUCOSE 173 mg/dL (75-110); POTASSIUM 3.5 mmol/L (3.6-5.0)
[2019-10-29 00:58] LABS: CARBON DIOXIDE 24 mmol/L (22-30); CHLORIDE 104 mmol/L (98-107)
[2019-10-29 01:03] LABS: ANION GAP 4 (5-19)
[2019-10-29] MEDS: HEPARIN SOD (PORCINE) 5,000 UNIT/ML 1 ML VIAL SUBCUT SCH (05:42)
[2019-10-29] MEDS ORDERED: PANTOPRAZOLE SODIUM 40 MG TABLET.DR PO SCH (06:00)
[2019-10-29] MEDS: NORMAL SALINE 1000 ML 1,000 ML IV PRN (06:13)
[2019-10-29 06:42] LABS: ABSOLUTE LYMPHOCYTES (AUTO) 1.8 10^3/uL (0.5-4.7); ABSOLUTE MONOCYTES (AUTO) 0.6 10^3/uL (0.1-1.4); BASOPHILS % (AUTO) 0.3 % (0-2); EOSINOPHILS % (AUTO) 0.6 % (0-6); HEMATOCRIT 28.5 % (37.9-51.0); HEMOGLOBIN 9.2 g/dL (13.5-17.0); LYMPHOCYTES % (AUTO) 27.6 % (13-45); MEAN CORPUSCULAR HEMOGLOBIN 24.6 pg (27.0-33.4); MEAN CORPUSCULAR HGB CONC 32.4 g/dL (32.0-36.0); MEAN CORPUSCULAR VOLUME 76 fl (80-97); MONOCYTES % (AUTO) 9.1 % (3-13); PLATELET COUNT 342 10^3/uL (150-450); RED BLOOD COUNT 3.75 10^6/uL (4.35-5.55); RED CELL DISTRIBUTION WIDTH 15.7 % (11.5-14.0); SEGMENTED NEUTROPHILS % (AUTO) 62.4 % (42-78); TOTAL CELLS COUNTED % (AUTO) 100 %; WHITE BLOOD COUNT 6.4 10^3/uL (4.0-10.5)
[2019-10-29 07:04] LABS: BLOOD UREA NITROGEN 9 mg/dL (7-20); CALCIUM 8.3 mg/dL (8.4-10.2); GLUCOSE 196 mg/dL (75-110); POTASSIUM 3.9 mmol/L (3.6-5.0)
[2019-10-29 07:10] LABS: CARBON DIOXIDE 24 mmol/L (22-30); CHLORIDE 105 mmol/L (98-107)
[2019-10-29 07:14] LABS: ANION GAP 3 (5-19)
[2019-10-29] MEDS: INSULIN LISPRO 100 UNIT/ML 3 ML VIAL SUBCUT SCH (09:23)
[2019-10-29] MEDS ORDERED: LISINOPRIL 5 MG TABLET PO SCH (10:00)
[2019-10-29] MEDS ORDERED: DOCUSATE SODIUM 100 MG CAPSULE PO SCH (10:00)
--- NOTE | 2019-10-29 10:11 | PDOC DISCHARGE SUMMARY ---
Impression - Admit/DC Date/PCP Admission Date/Primary Care Provider: 10/28/19 06:39 CHANNING PEACOCK Discharge Date: 10/29/19 - Additional Information Resuscitation Status: Full Code Discharge Diet: Diabetic Discharge Activity: Activity As Tolerated Referrals: CHANNING PEACOCK MD [Primary Care Provider] - Follow up as needed Prescriptions: Lisinopril [Prinivil 5 mg Tablet] 5 mg PO DAILY 30 Days #30 tablet Home Medications: Insulin Lispro [Humalog Kwikpen U-100] 0 units SQ .PERSLIDINGSCALE 10/28/19 Insulin NPH Hum/Reg Insulin Hm [Novolin 70-30 Flexpen] 30 units SQ BID 10/28/19 Lisinopril [Prinivil 5 mg Tablet] 5 mg PO DAILY 30 Days #30 tablet 10/29/19 Nicotine [Nicoderm 7 mg/24 Hr Transdermal Patch] 1 each TD DAILYP PRN patch.td24 10/29/19 History of Present Illiness History of Present Illness: FAITH RAVI is a 19 year old male Physical Exam Vital Signs: Temp Pulse Resp BP Pulse Ox 98.0 F 78 16 111/48 L 100 10/29/19 03:38 10/29/19 07:00 10/29/19 03:38 10/29/19 03:38 10/29/19 03:38 Intake & Output 10/28/19 10/29/19 10/30/19 06:59 06:59 06:59 Intake Total 2001 3197 Output Total 5 Balance 2001 672 Weight 50.7 kg 57.5 kg General appearance: PRESENT: no acute distress, cooperative, well-developed, well-nourished Respiratory exam: PRESENT: clear to auscultation santhosh, symmetrical, unlabored. ABSENT: rales, rhonchi, tachypnea, wheezes Cardiovascular exam: PRESENT: RRR, +S1, +S2, systolic murmur - 2/6. ABSENT: bradycardia, diastolic murmur, irregular rhythm, tachycardia GI/Abdominal exam: PRESENT: normal bowel sounds, soft. ABSENT: tenderness Results Laboratory Results: WBC 6.4 10^3/uL (4.0-10.5) 10/29/19 06:04 RBC 3.75 10^6/uL (4.35-5.55) L 10/29/19 06:04 Hgb 9.2 g/dL (13.5-17.0) L 10/29/19 06:04 Hct 28.5 % (37.9-51.0) L 10/29/19 06:04 MCV 76 fl (80-97) L 10/29/19 06:04 MCH 24.6 pg (27.0-33.4) L 10/29/19 06:04 MCHC 32.4 g/dL (32.0-36.0) 10/29/19 06:04 RDW 15.7 % (11.5-14.0) H 10/29/19 06:04 Plt Count 342 10^3/uL (150-450) 10/29/19 06:04 Lymph % (Auto) 27.6 % (13-45) 10/29/19 06:04 [place] % (Auto) 9.1 % (3-13) 10/29/19 06:04 Eos % (Auto) 0.6 % (0-6) 10/29/19 06:04 Baso % (Auto) 0.3 % (0-2) 10/29/19 06:04 Absolute Neuts (auto) 4.0 10^3/uL (1.7-8.2) 10/29/19 06:04 Absolute Lymphs (auto) 1.8 10^3/uL (0.5-4.7) 10/29/19 06:04 Absolute Monos (auto) 0.6 10^3/uL (0.1-1.4) 10/29/19 06:04 Absolute Eos (auto) 0.0 10^3/uL (0.0-0.6) 10/29/19 06:04 Absolute Basos (auto) 0.0 10^3/uL (0.0-0.2) 10/29/19 06:04 Seg Neutrophils % 62.4 % (42-78) 10/29/19 06:04 Platelet Estimate CLAIM MANAGER 10/28/19 11:25 Carbonic Acid 1.11 mmol/L (1.05-1.35) 10/28/19 07:07 HCO3/H2CO3 Ratio 17:1 10/28/19 07:07 ABG pH 7.34 (7.35-7.45) L 10/28/19 07:07 ABG pCO2 36.8 mmHg (35-45) 10/28/19 07:07 ABG pO2 91.2 mmHg (80-100) 10/28/19 07:07 ABG HCO3 19.3 mmol/L (20-24) L 10/28/19 07:07 ABG Total CO2 20.4 mmol/L (23-27) L 10/28/19 07:07 ABG O2 Saturation 96.6 % (94-98) 10/28/19 07:07 ABG Base Excess -5.9 mmol/L 10/28/19 07:07 FiO2 ROOM AIR 10/28/19 07:07 Sodium 132.3 mmol/L (137-145) L 10/29/19 06:04 Potassium 3.9 mmol/L (3.6-5.0) 10/29/19 06:04 Chloride 105 mmol/L (98-107) 10/29/19 06:04 Carbon Dioxide 24 mmol/L (22-30) 10/29/19 06:04 Anion Gap 3 (5-19) L 10/29/19 06:04 BUN 9 mg/dL (7-20) 10/29/19 06:04 Creatinine 0.39 mg/dL (0.52-1.25) L 10/29/19 06:04 Est GFR ( Amer) > 60 (>60) 10/29/19 06:04 Est GFR (MDRD) Non-Af > 60 (>60) 10/29/19 06:04 Glucose 196 mg/dL (75-110) H 10/29/19 06:04 POC Glucose 241 mg/dL (70-110) H 10/29/19 06:43 Calcium 8.3 mg/dL (8.4-10.2) L 10/29/19 06:04 Magnesium 2.1 mg/dL (1.6-2.3) 10/28/19 03:45 Total Bilirubin 0.8 mg/dL (0.2-1.3) 10/28/19 03:45 Direct Bilirubin 0.2 mg/dL (0.0-0.4) 10/28/19 03:45 Neonat Total Bilirubin Not Reportable 10/28/19 03:45 Neonat Direct Bilirubin Not Reportable 10/28/19 03:45 Neonat Indirect Bili Not Reportable 10/28/19 03:45 AST 47 U/L (17-59) 10/28/19 03:45 ALT 80 U/L (<50) H 10/28/19 03:45 Alkaline Phosphatase 215 U/L (38-126) H 10/28/19 03:45 Total Protein 9.0 g/dL (6.3-8.2) H 10/28/19 03:45 Albumin 5.1 g/dL (3.5-5.0) H 10/28/19 03:45 Urine Color YELLOW 10/28/19 20:55 Urine Appearance CLEAR 10/28/19 20:55 Urine pH 6.0 (5.0-9.0) 10/28/19 20:55 Ur Specific [place] 1.013 10/28/19 20:55 Urine Protein 30 mg/dL (NEGATIVE) H 10/28/19 20:55 Urine Glucose (UA) >=500 mg/dL (NEGATIVE) H 10/28/19 20:55 Urine Ketones 20 mg/dL (NEGATIVE) H 10/28/19 20:55 Urine Blood NEGATIVE (NEGATIVE) 10/28/19 20:55 Urine Nitrite NEGATIVE (NEGATIVE) 10/28/19 20:55 Urine Bilirubin NEGATIVE (NEGATIVE) 10/28/19 20:55 Urine Urobilinogen NEGATIVE mg/dL (<2.0) 10/28/19 20:55 Ur Leukocyte Esterase NEGATIVE (NEGATIVE) 10/28/19 20:55 Urine WBC (Auto) 1 /HPF 10/28/19 20:55 Urine RBC (Auto) 0 /HPF 10/28/19 20:55 U Hyaline Cast (Auto) 1 /LPF 10/28/19 20:55 Urine Mucus (Auto) RARE /LPF 10/28/19 20:55 Urine Ascorbic Acid NEGATIVE (NEGATIVE) 10/28/19 20:55 Urine Opiates Screen UNCONFIRMED POSITIVE 10/28/19 20:55 Urine Methadone Screen NEGATIVE 10/28/19 20:55 Ur Barbiturates Screen NEGATIVE 10/28/19 20:55 Ur Phencyclidine Scrn NEGATIVE 10/28/19 20:55 Ur Amphetamines Screen UNCONFIRMED POSITIVE 10/28/19 20:55 U Benzodiazepines Scrn NEGATIVE 10/28/19 20:55 Urine Cocaine Screen NEGATIVE 10/28/19 20:55 U Marijuana (THC) Screen NEGATIVE 10/28/19 20:55 Slides for Path Review CLAIM MANAGER 10/28/19 11:25
[2019-10-29 10:32] VITALS: BP 110/63
== END 2019-10-29 10:52 | disposition home or self-care (01) | DRG 639 ==
LOC: ER 02:33 → OBSVTOIN 06:39 → EH 06:39 → 3S 15:42
PROVIDERS: ADMIT Internal Medicine Geriatric Medicine; ATTEND Hospitalist
DX: E10.10 Type 1 diabetes mellitus with ketoacidosis without coma (principal); F17.210 Nicotine dependence, cigarettes, uncomplicated; J45.909 Unspecified asthma, uncomplicated; D72.829 Elevated white blood cell count, unspecified; F11.10 Opioid abuse, uncomplicated; Z79.4 Long term (current) use of insulin; Z82.49 Family history of ischemic heart disease and other diseases of the circulatory system
CPT/HCPCS: 36415; 80048; 80053; 80307; 81001; 82803; 82962; 83735; 85025; 96361; 96374; 96375; 99291; J1644; J3490; J7030; J7042